=== PATIENT | male | born 1955 | race Two or more races ===

== ENCOUNTER 2017-09-09 17:39 | Inpatient (IN) | payer OTHER ==
[~2017-09-09] VITALS: Ht 167.6 cm; Wt 62.1 kg
[2017-09-09 17:41] VITALS: BP 124/69
--- NOTE | 2017-09-09 18:57 | Emergency Room Report ---
History of Present Illness General Chief Complaint: Fever Present Illness HPI Patient is a 62-year-old male brought in by EMS after increased fever. Patient prior history of right-sided CVA with resulting right-sided hemiplegia. Patient was noted to have fever up to 104 at his facility. The patient reports having increased pain to the right side of his face. He denies any vomiting. He denies any new weakness. He reports having right-sided facial throbbing Allergies: Coded Allergies: No Known Allergies (Unverified , 09/09/17) Patient History Past Medical History: see triage record Reviewed Nursing Documentation: PMH: Agreed; PSxH: Agreed Review of Systems All Other Systems: negative except mentioned in HPI Physical Exam Vital Signs Date Time Temp Pulse Resp B/P (MAP) Pulse Ox O2 Delivery O2 Flow Rate FiO2 09/09/17 17:31 101.8 100 18 128/68 94 Room Air 101.8 Sp02 EP Interpretation: reviewed, normal General Appearance: normal inspection, well appearing, no apparent distress, alert, GCS 15, non-toxic Head: atraumatic ENT: normal ENT inspection, hearing grossly normal, normal voice Neck: normal inspection, full range of motion, supple, no bony tend Respiratory: normal inspection, lungs clear, normal breath sounds, no respiratory distress, no retraction, no wheezing Cardiovascular #1: regular rate, rhythm, no edema Gastrointestinal: normal inspection, normal bowel sounds, non tender, soft, no guarding, no hernia Genitourinary: no CVA tenderness Musculoskeletal: normal inspection, back normal, normal range of motion Neurologic: normal inspection, alert, responsive, speech normal, motor weakness - right upper extremity, right facial droop Psychiatric: normal inspection, judgement/insight normal, mood/affect normal Skin: normal inspection, normal color, no rash Medical Decision Making Diagnostic Impression: Primary Impression: History of CVA (cerebrovascular accident) Additional Impressions: Fever Abnormal LFTs ER Course Patient presented for fever. Differential diagnosis included was not limited to sepsis, urinary tract infection, pneumonia, drug fever, thalamic dysregulation. Because of complexity of patient's case laboratory testing and imaging studies were ordered.The patient noted have prior CVA. The patient given antipyretics and started on IV antibiotics. The patient started on IV fluids. The patient shows no definite source of infection. CT of head read by radiology showed no evidence of acute hemorrhage or CVA. The patient's liver tests were noted to be somewhat abnormal patient will be admitted for further evaluation and treatment. The patient's urine does not appear to be infected. Dr. Calvin Martell was contacted for inpatient management Labs Test 09/09/17 18:40 09/10/17 07:00 White Blood Count 10.0 K/UL (4.8-10.8) Red Blood Count 4.71 M/UL (4.70-6.10) Hemoglobin 12.4 G/DL (14.2-18.0) Hematocrit 37.4 % (42.0-52.0) Mean Corpuscular Volume 79 FL (80-99) Mean Corpuscular Hemoglobin 26.3 PG (27.0-31.0) Mean Corpuscular Hemoglobin Concent 33.1 G/DL (32.0-36.0) Red Cell Distribution Width 14.0 % (11.6-14.8) Platelet Count 236 K/UL (150-450) Mean Platelet Volume 5.6 FL (6.5-10.1) Neutrophils (%) (Auto) 78.7 % (45.0-75.0) Lymphocytes (%) (Auto) 12.0 % (20.0-45.0) Monocytes (%) (Auto) 8.2 % (1.0-10.0) Eosinophils (%) (Auto) 0.4 % (0.0-3.0) Basophils (%) (Auto) 0.7 % (0.0-2.0) Sodium Level 135 MMOL/L (136-145) Potassium Level 4.1 MMOL/L (3.5-5.1) Chloride Level 100 MMOL/L (98-107) Carbon Dioxide Level 26 MMOL/L (21-32) Anion Gap 9 mmol/L (5-15) Blood Urea Nitrogen 9 mg/dL (7-18) Creatinine 1.1 MG/DL (0.55-1.30) Estimat Glomerular Filtration Rate > 60 mL/min (>60) Glucose Level 116 MG/DL (74-106) Lactic Acid Level 2.10 mmol/L (0.66-2.22) Calcium Level 9.0 MG/DL (8.5-10.1) Phosphorus Level 2.6 MG/DL (2.5-4.9) Magnesium Level 1.4 MG/DL (1.8-2.4) Total Bilirubin 0.5 MG/DL (0.2-1.0) Aspartate Amino Transf (AST/SGOT) 167 U/L (15-37) Alanine Aminotransferase (ALT/SGPT) 312 U/L (12-78) Alkaline Phosphatase 166 U/L (46-116) Total Creatine Kinase 192 U/L (26-308) Creatine Kinase MB 0.8 NG/ML (0.0-3.6) Creatine Kinase MB Relative Index 0.4 Troponin I 0.000 ng/mL (0.000-0.056) Total Protein 8.4 G/DL (6.4-8.2) Albumin 3.7 G/DL (3.4-5.0) Globulin 4.7 g/dL Albumin/Globulin Ratio 0.8 (1.0-2.7) Urine Color Pale yellow Urine Appearance Clear Urine pH 8 (4.5-8.0) Urine Specific [place] 1.010 (1.005-1.035) Urine Protein Negative (NEGATIVE) Urine Glucose (UA) Negative (NEGATIVE) Urine Ketones Negative (NEGATIVE) Urine Occult Blood Negative (NEGATIVE) Urine Nitrite Negative (NEGATIVE) Urine Bilirubin Negative (NEGATIVE) Urine Urobilinogen Normal MG/DL (0.0-1.0) Urine Leukocyte Esterase Negative (NEGATIVE) Urine RBC 0 /HPF (0 - 0) Urine WBC 0-2 /HPF (0 - 0) Urine Squamous Epithelial Cells Occasional /LPF Urine Bacteria Occasional /HPF (NONE) Last Vital Signs Date Time Temp Pulse Resp B/P (MAP) Pulse Ox O2 Delivery O2 Flow Rate FiO2 09/09/17 17:41 99.8 106 18 124/69 96 Room Air 99.8 Status: unchanged Disposition: ADMITTED INPATIENT Condition: Serious Referrals: CALVIN MARTELL (PCP) Parth Thompson Sep 09, 2017 18:57
[2017-09-09 19:28] VITALS: BP 140/75
[2017-09-09 19:33] LABS: BASOPHILS % (AUTO) 0.7 % (0.0-2.0); EOSINOPHILS % (AUTO) 0.4 % (0.0-3.0); HEMATOCRIT 37.4 % (42.0-52.0); HEMOGLOBIN 12.4 G/DL (14.2-18.0); MEAN CORPUSCULAR VOLUME 79 FL (80-99); MONOCYTES % (AUTO) 8.2 % (1.0-10.0); NEUTROPHILS % (AUTO) 78.7 % (45.0-75.0); PLATELET COUNT 236 K/UL (150-450); RED BLOOD COUNT 4.71 M/UL (4.70-6.10)
[2017-09-09 19:37] LABS: APPEARANCE,URINE CLEAR; BILIRUBIN, URINE NEGATIVE (NEGATIVE); COLOR,URINE PALE YELLOW; GLUCOSE, URINE (UA) NEGATIVE (NEGATIVE); KETONES,URINE NEGATIVE (NEGATIVE); LEUKOCYTE ESTERASE ,URINE NEGATIVE (NEGATIVE); NITRITE,URINE NEGATIVE (NEGATIVE); PH,URINE 9 (4.5-8.0); PROTEIN,URINE NEGATIVE (NEGATIVE); UROBILINOGEN,URINE NORMAL MG/DL (0.0-1.0)
[2017-09-09 19:39] LABS: ANION GAP 9 mmol/L (5-15); BLOOD UREA NITROGEN 9 mg/dL (7-18); CARBON DIOXIDE 26 MMOL/L (21-32); CHLORIDE 100 MMOL/L (98-107); CREATININE 1.1 MG/DL (0.55-1.30); POTASSIUM 4.1 MMOL/L (3.5-5.1); SODIUM 135 MMOL/L (136-145)
[2017-09-09 19:52] LABS: ALANINE AMINOTRANSFERASE 312 U/L (12-78); ALBUMIN 3.7 G/DL (3.4-5.0); ALBUMIN/GLOBULIN RATIO 0.8 (1.0-2.7); ALKALINE PHOSPHATASE 166 U/L (46-116); ASPARTATE AMINO TRANSFERASE 167 U/L (15-37); BILIRUBIN,TOTAL 0.5 MG/DL (0.2-1.0); CKMB 0.8 NG/ML (0.0-3.6); CREATINE KINASE 192 U/L (26-308); PHOSPHORUS 2.6 MG/DL (2.5-4.9)
[2017-09-09] MEDS ORDERED: CARVEDILOL6.25 MG ORAL (20:21)
[2017-09-09] MEDS ORDERED: PEPCID20 MG ORAL (20:21)
[2017-09-09] MEDS ORDERED: ATORVASTATIN CA40 MG ORAL (20:21)
[2017-09-09] MEDS ORDERED: ADULT WAL-100 MG/5 M ORAL (20:21)
[2017-09-09] MEDS ORDERED: NUTRISOURCE FI1 EACH PO (20:21)
[2017-09-09] MEDS ORDERED: DOCUSATE SODIU100 MG ORAL (20:21)
[2017-09-09] MEDS ORDERED: TRAMADOL HCL50 MG ORAL (20:21)
[2017-09-09] MEDS ORDERED: BACLOFEN10 MG ORAL (20:21)
[2017-09-09] MEDS ORDERED: METFORMIN HCL1000 M1 ORAL (20:21)
[2017-09-09] MEDS ORDERED: ASPIR 8181 MG ORAL (20:21)
[2017-09-09] MEDS ORDERED: FERROUSUL325 M1 PO (20:21)
[2017-09-09] MEDS ORDERED: NEURONTIN100 MG ORAL (20:21)
[2017-09-09] MEDS ORDERED: MAGNESIUM400 M1 PO (20:21)
[2017-09-09] MEDS ORDERED: ACETAMINOPHEN325 M1 ORAL (20:21)
[2017-09-09] MEDS ORDERED: FLONASE ALLERG9.9 ML NS (20:21)
[2017-09-09] MEDS ORDERED: AMLODIPINE BESY10 MG ORAL (20:21)
[2017-09-09] MEDS ORDERED: LISINOPRIL5 MG ORAL (20:21)
[2017-09-09 21:03] VITALS: BP 111/64
[2017-09-09] MEDS ORDERED: Ampicillin/Sulbactam Sod 3 GM in NS 110 ML IVPB ONE (22:45)
[2017-09-09 22:56] VITALS: BP 112/72
[2017-09-09 23:30] VITALS: BP 129/77
[2017-09-10] MEDS ORDERED: Miralax 17gm pkt ORAL PRN (00:15)
[2017-09-10] MEDS ORDERED: Nitroglycerin Subl 0.4mg tab SL PRN ×2 (00:15→20:15)
[2017-09-10] MEDS ORDERED: Albuterol/Ipratropium 3ml neb HHN PRN ×2 (00:15→21:00)
[2017-09-10] MEDS ORDERED: Morphine Sulfate 4mg/ml Inj IVP PRN ×2 (00:45→21:00)
[2017-09-10] MEDS ORDERED: Vancomycin 1.5gm/D5W 250ml 250 ML IVPB SCH (02:00)
[2017-09-10 04:00] VITALS: BP 115/65
[2017-09-10] MEDS: NovoLOG Insulin Flexpen SUBQ SCH ×4 (06:28→21:57)
[2017-09-10 08:00] VITALS: BP 112/74
[2017-09-10] MEDS ORDERED: Cefepime HCl 2 GM in D5W 110 ML IV SCH (09:00)
[2017-09-10] MEDS ORDERED: Lisinopril 2.5mg tab ORAL SCH (09:00)
[2017-09-10] MEDS ORDERED: Carvedilol 6.25mg Tab ORAL SCH (09:00)
[2017-09-10] MEDS ORDERED: Heparin 5000 units/ml inj SUBQ SCH (09:00)
--- NOTE | 2017-09-10 09:39 | Diagnostic Imaging Report ---
Indication: Shortness of breath Technique: One view of the chest Comparison: none Findings: Inspiration is suboptimal. The heart is upper limits of normal in size. No infiltrates, effusions, or congestion Impression: No acute process
[2017-09-10 09:55] LABS: APPEARANCE,URINE CLEAR; BILIRUBIN, URINE NEGATIVE (NEGATIVE); COLOR,URINE PALE YELLOW; GLUCOSE, URINE (UA) NEGATIVE (NEGATIVE); KETONES,URINE NEGATIVE (NEGATIVE); LEUKOCYTE ESTERASE ,URINE NEGATIVE (NEGATIVE); NITRITE,URINE NEGATIVE (NEGATIVE); PH,URINE 8 (4.5-8.0); PROTEIN,URINE NEGATIVE (NEGATIVE); UROBILINOGEN,URINE NORMAL MG/DL (0.0-1.0)
[2017-09-10] MEDS ORDERED: Lisinopril 20mg tab ORAL SCH (10:15)
--- NOTE | 2017-09-10 11:36 | Diagnostic Imaging Report ---
Indications: Head pain Technique: Spiral acquisitions obtained through the brain. Angled axial and coronal 5 x 5 mm slices were reconstructed. Total dose length product 1326.82 mGycm. CTDI vol(s) 70.38 mGy. Dose reduction achieved using automated exposure control Comparison: None. Findings: There is an old lacunar infarct in the left basal ganglia region. Although the infarct does not appear particularly large, there is considerable ex vacuo dilatation of the frontal horn and body of the left lateral ventricle. No acute intracranial hemorrhage or edema. No mass effect or midline shift. Otherwise normal galo-white differentiation. There is minimal ethmoid sinus disease. Intact calvarium. Visualized orbits are unremarkable. Impression: Old left basal ganglia lacunar infarct Negative for acute intracranial bleed or mass effect Minimal sinus disease This agrees with the preliminary interpretation provided overnight by [facility] teleradiology service. The CT scanner at [facility] is accredited by the [employer] and the scans are performed using protocols designed to limit radiation exposure to as low as reasonably achievable to attain images of sufficient resolution adequate for diagnostic evaluation.
[2017-09-10 12:00] VITALS: BP 120/65
--- NOTE | 2017-09-10 12:07 | Consultation ---
History of Present Illness General Date patient seen: Sep 10, 2017 Chief Complaint: Fever Present Illness HPI 62-year-old male with history of right-sided CVA with resulting right-sided hemiplegia brought in by EMS with CC of fever up to 104 at his facility. The patient reports having increased pain to the right side of his face. He denies any vomiting. He denies any new weakness. His CXR was negative, urine was clear as well. He is admitted to work up his fever. He looks comfortable, only c/o generalized weakness. Allergies: Coded Allergies: No Known Allergies (Unverified , 09/09/17) Medication History Scheduled Amlodipine Besylate* (Amlodipine Besylate*), 10 MG ORAL DAILY, (Reported) Aspirin* (Aspir 81*), 81 MG ORAL DAILY, (Reported) Atorvastatin Calcium* (Atorvastatin Calcium*), 40 MG ORAL BEDTIME, (Reported) Baclofen* (Baclofen*), 5 MG ORAL THREE TIMES A DAY, (Reported) Carvedilol* (Carvedilol*), 6.25 MG ORAL EVERY 12 HOURS, (Reported) Docusate Sodium* (Docusate Sodium*), 100 MG ORAL TWICE A DAY, (Reported) Famotidine (Pepcid), 20 MG ORAL BEDTIME, (Reported) Gabapentin* (Neurontin*), 300 MG ORAL THREE TIMES A DAY, (Reported) Guaifenesin* (Adult Wal-Tussin*), 5 ML ORAL Q4H, (Reported) Lisinopril (Lisinopril*), 40 MG ORAL DAILY, (Reported) Magnesium Oxide (Magnesium), 400 MG PO BID, (Reported) Metformin Hcl* (Metformin Hcl*), 1,000 MG ORAL DAILY, (Reported) Scheduled PRN Acetaminophen* (Acetaminophen 325MG Tablet*), 325 MG ORAL Q4H PRN for For Pain, (Reported) Tramadol Hcl* (Ultram*), 50 MG ORAL Q6H PRN for For Pain, (Reported) Miscellaneous Medications Ferrous Sulfate (Ferrousul), 325 MG PO, (Reported) Fluticasone Propionate (Flonase Allergy Relief), 9.9 ML NS, (Reported) Guar Gum (Nutrisource Fiber), 1 EACH PO, (Reported) Patient History Healthcare decision maker Resuscitation status Full Code Advanced Directive on File No Past Medical/Surgical History Past Medical/Surgical History: (1) History of CVA (cerebrovascular accident) (2) Diabetes mellitus (3) Hypertension Review of Systems All Other Systems: negative except mentioned in HPI Physical Exam General Appearance: WD/WN Lines, tubes and drains: peripheral HEENT: normocephalic, atraumatic Neck: non-tender, normal alignment Respiratory/Chest: chest wall non-tender, lungs clear Cardiovascular/Chest: normal peripheral pulses, normal rate Abdomen: normal bowel sounds, non tender Genitourinary/Rectal: normal genital exam, normal rectal exam Extremities: normal range of motion, non-tender Skin Exam: warm/dry Last 24 Hour Vital Signs Date Time Temp Pulse Resp B/P (MAP) Pulse Ox O2 Delivery O2 Flow Rate FiO2 09/10/17 10:27 112/74 09/10/17 09:07 96 112/74 09/10/17 09:07 96 112/74 09/10/17 08:00 97.9 96 18 112/74 95 Room Air 97.9 09/10/17 07:19 83 09/10/17 04:00 99.7 100 20 115/65 96 Room Air 99.7 09/10/17 04:00 100 09/09/17 23:41 82 09/09/17 23:30 100.0 96 18 129/77 96 Room Air 100.0 09/09/17 23:25 98.4 87 19 112/72 96 Room Air 98.4 09/09/17 22:56 87 19 112/72 96 Room Air 09/09/17 21:03 98.4 87 14 111/64 97 Room Air 98.4 09/09/17 20:06 98.4 09/09/17 19:28 99.8 99 15 140/75 98 Room Air 99.8 09/09/17 19:07 99.8 09/09/17 17:41 99.8 106 18 124/69 96 Room Air 99.8 09/09/17 17:31 101.8 100 18 128/68 94 Room Air 101.8 Intake and Output 09/09/17 09/10/17 19:00 07:00 Output Total 225 ml Balance -225 ml Output Urine Total 225 ml # Voids 1 Laboratory Tests Test 09/09/17 18:40 09/09/17 19:00 09/10/17 07:00 White Blood Count 10.0 K/UL (4.8-10.8) Red Blood Count 4.71 M/UL (4.70-6.10) Hemoglobin 12.4 G/DL (14.2-18.0) L Hematocrit 37.4 % (42.0-52.0) L Mean Corpuscular Volume 79 FL (80-99) L Mean Corpuscular Hemoglobin 26.3 PG (27.0-31.0) L Mean Corpuscular Hemoglobin Concent 33.1 G/DL (32.0-36.0) Red Cell Distribution Width 14.0 % (11.6-14.8) Platelet Count 236 K/UL (150-450) Mean Platelet Volume 5.6 FL (6.5-10.1) L Neutrophils (%) (Auto) 78.7 % (45.0-75.0) H Lymphocytes (%) (Auto) 12.0 % (20.0-45.0) L Monocytes (%) (Auto) 8.2 % (1.0-10.0) Eosinophils (%) (Auto) 0.4 % (0.0-3.0) Basophils (%) (Auto) 0.7 % (0.0-2.0) Sodium Level 135 MMOL/L (136-145) L Potassium Level 4.1 MMOL/L (3.5-5.1) Chloride Level 100 MMOL/L (98-107) Carbon Dioxide Level 26 MMOL/L (21-32) Anion Gap 9 mmol/L (5-15) Blood Urea Nitrogen 9 mg/dL (7-18) Creatinine 1.1 MG/DL (0.55-1.30) Estimat Glomerular Filtration Rate > 60 mL/min (>60) Glucose Level 116 MG/DL (74-106) H Lactic Acid Level 2.10 mmol/L (0.66-2.22) Calcium Level 9.0 MG/DL (8.5-10.1) Phosphorus Level 2.6 MG/DL (2.5-4.9) Magnesium Level 1.4 MG/DL (1.8-2.4) L Total Bilirubin 0.5 MG/DL (0.2-1.0) Aspartate Amino Transf (AST/SGOT) 167 U/L (15-37) H Alanine Aminotransferase (ALT/SGPT) 312 U/L (12-78) H Alkaline Phosphatase 166 U/L (46-116) H Total Creatine Kinase 192 U/L (26-308) Creatine Kinase MB 0.8 NG/ML (0.0-3.6) Creatine Kinase MB Relative Index 0.4 Troponin I 0.000 ng/mL (0.000-0.056) Total Protein 8.4 G/DL (6.4-8.2) H Albumin 3.7 G/DL (3.4-5.0) Globulin 4.7 g/dL Albumin/Globulin Ratio 0.8 (1.0-2.7) L Urine Color Pale yellow Pale yellow Urine Appearance Clear Clear Urine pH 9 (4.5-8.0) 8 (4.5-8.0) Urine Specific [place] 1.015 (1.005-1.035) 1.010 (1.005-1.035) Urine Protein Negative (NEGATIVE) Negative (NEGATIVE) Urine Glucose (UA) Negative (NEGATIVE) Negative (NEGATIVE) Urine Ketones Negative (NEGATIVE) Negative (NEGATIVE) Urine Occult Blood Negative (NEGATIVE) Negative (NEGATIVE) Urine Nitrite Negative (NEGATIVE) Negative (NEGATIVE) Urine Bilirubin Negative (NEGATIVE) Negative (NEGATIVE) Urine Urobilinogen Normal MG/DL (0.0-1.0) Normal MG/DL (0.0-1.0) Urine Leukocyte Esterase Negative (NEGATIVE) Negative (NEGATIVE) Urine RBC 0 /HPF (0 - 0) Urine WBC 0-2 /HPF (0 - 0) Urine Squamous Epithelial Cells Occasional /LPF Urine Bacteria Occasional /HPF (NONE) Microbiology Date/Time Source Procedure Growth Status 09/09/17 18:40 Nasal Nares Influenza Types A,B Antigen (DEBORAH) - Final Complete Height (Feet): 5 Height (Inches): 8.00 Weight (Pounds): 137 Medications Current Medications Medications (Trade) Dose Ordered Sig/Leeroy Route PRN Reason Start Time Stop Time Status Last Admin Dose Admin Acetaminophen (Tylenol) 650 mg Q4H PRN ORAL fever 09/10/17 00:15 10/10/17 00:14 Albuterol/ Ipratropium (Albuterol/ Ipratropium) 3 ml EVERY 4 HOURS PRN HHN Shortness of Breath 09/10/17 00:15 09/15/17 00:14 Amlodipine Besylate (Norvasc) 10 mg DAILY ORAL 09/10/17 09:00 10/10/17 08:59 09/10/17 09:07 Carvedilol (Coreg) 6.25 mg EVERY 12 HOURS ORAL 09/10/17 09:00 10/10/17 08:59 09/10/17 09:07 Cefepime HCl 2 gm/ Dextrose 110 ml @ 220 mls/hr EVERY 12 HOURS IV 09/10/17 09:00 09/17/17 08:59 09/10/17 10:26 Dextrose (Dextrose 50%) STAT PRN IV Hypoglycemia 09/10/17 00:15 10/10/17 00:14 Gabapentin (Neurontin) 300 mg THREE TIMES A DAY ORAL 09/10/17 09:00 10/10/17 08:59 09/10/17 09:06 Heparin Sodium (Porcine) (Heparin 5000 units/ml) 5,000 units EVERY 12 HOURS SUBQ 09/10/17 09:00 10/10/17 08:59 09/10/17 09:08 Insulin Aspart (NovoLOG) BEFORE MEALS AND HS SUBQ 09/10/17 06:30 10/10/17 06:29 09/10/17 11:50 Lisinopril (Prinivil) 40 mg DAILY ORAL 09/11/17 09:00 10/11/17 08:59 Morphine Sulfate (Morphine Sulfate) 2 mg Q4H PRN IVP moderate pain scale 4 to 6 09/10/17 00:45 09/17/17 00:44 Nitroglycerin (Ntg) 0.4 mg Q5M PRN SL Prn Chest Pain 09/10/17 00:15 10/10/17 00:14 Ondansetron HCl (Zofran) 4 mg Q6H PRN IVP Nausea & Vomiting 09/10/17 00:15 10/10/17 00:14 Polyethylene Glycol (Miralax) 17 gm DAILYPRN PRN ORAL Constipation 09/10/17 00:15 10/10/17 00:14 Temazepam (Restoril) 15 mg HSPRN PRN ORAL Insomnia 09/10/17 00:15 09/17/17 00:14 Vancomycin HCl (Vanco rx to dose) 1 ea DAILY PRN MISC PER RX PROTOCOL 09/10/17 09:45 5/26/18 09:44 Vancomycin/Sodium Chloride 250 ml @ 166.667 mls/hr Q12HR@0200,1400 IVPB 09/10/17 14:00 09/15/17 13:59 Assessment/Plan Problem List: (1) Fever ICD Codes: R50.9 - Fever, unspecified SNOMED: 286474501 (2) Diabetes mellitus ICD Codes: E11.9 - Type 2 diabetes mellitus without complications SNOMED: 90924461 (3) Hypertension ICD Codes: I10 - Essential (primary) hypertension SNOMED: 09614327 (4) History of CVA (cerebrovascular accident) ICD Codes: Z86.73 - Personal history of transient ischemic attack (TIA), and cerebral infarction without residual deficits SNOMED: 034437132 Assessment/Plan howard cultures, urine, blood, IV abx symptomatic treatment sliding scale diabetic diet echocardiogram Loco Aguilar MD Sep 10, 2017 12:07
--- NOTE | 2017-09-10 13:17 | Consultation ---
History of Present Illness General Date patient seen: Sep 10, 2017 Time patient seen: 13:04 Chief Complaint: Fever Present Illness HPI 62 y/o M with hx of CVA w/ residual R side hemiplegia, SNF resident presents to ED on 09/09 with fever up to 104, increasing R side face pain/throbbing. +sinus congestion Denies vomiting, new weakness, vision changes, neck pain, photo/phono-phobia, abd pain, diarrhea, nausea, rash, cough, sore throat. CXR neg, u/a neg. Allergies: Coded Allergies: No Known Allergies (Unverified , 09/09/17) Medication History Scheduled Amlodipine Besylate* (Amlodipine Besylate*), 10 MG ORAL DAILY, (Reported) Aspirin* (Aspir 81*), 81 MG ORAL DAILY, (Reported) Atorvastatin Calcium* (Atorvastatin Calcium*), 40 MG ORAL BEDTIME, (Reported) Baclofen* (Baclofen*), 5 MG ORAL THREE TIMES A DAY, (Reported) Carvedilol* (Carvedilol*), 6.25 MG ORAL EVERY 12 HOURS, (Reported) Docusate Sodium* (Docusate Sodium*), 100 MG ORAL TWICE A DAY, (Reported) Famotidine (Pepcid), 20 MG ORAL BEDTIME, (Reported) Gabapentin* (Neurontin*), 300 MG ORAL THREE TIMES A DAY, (Reported) Guaifenesin* (Adult Wal-Tussin*), 5 ML ORAL Q4H, (Reported) Lisinopril (Lisinopril*), 40 MG ORAL DAILY, (Reported) Magnesium Oxide (Magnesium), 400 MG PO BID, (Reported) Metformin Hcl* (Metformin Hcl*), 1,000 MG ORAL DAILY, (Reported) Scheduled PRN Acetaminophen* (Acetaminophen 325MG Tablet*), 325 MG ORAL Q4H PRN for For Pain, (Reported) Tramadol Hcl* (Ultram*), 50 MG ORAL Q6H PRN for For Pain, (Reported) Miscellaneous Medications Ferrous Sulfate (Ferrousul), 325 MG PO, (Reported) Fluticasone Propionate (Flonase Allergy Relief), 9.9 ML NS, (Reported) Guar Gum (Nutrisource Fiber), 1 EACH PO, (Reported) Patient History Healthcare decision maker Resuscitation status Full Code Advanced Directive on File No Patient History Narrative PMhx: as above Shx: reviewed Fhx: non contributory Review of Systems All Other Systems: negative except mentioned in HPI Physical Exam Physical Exam Narrative General Appearance: WD/WN Lines, tubes and drains: peripheral HEENT: normocephalic, atraumatic Neck: non-tender, normal alignment Respiratory/Chest: chest wall non-tender, lungs clear Cardiovascular/Chest: normal peripheral pulses, normal rate Abdomen: normal bowel sounds, RUQ TTP Genitourinary/Rectal: normal genital exam, normal rectal exam Extremities: normal range of motion, non-tender Skin Exam: warm/dry Last 24 Hour Vital Signs Date Time Temp Pulse Resp B/P (MAP) Pulse Ox O2 Delivery O2 Flow Rate FiO2 09/10/17 12:00 99.0 87 20 120/65 95 Room Air 99.0 09/10/17 11:40 87 09/10/17 10:27 112/74 09/10/17 09:07 96 112/74 09/10/17 09:07 96 112/74 09/10/17 08:00 97.9 96 18 112/74 95 Room Air 97.9 09/10/17 07:19 83 09/10/17 04:00 99.7 100 20 115/65 96 Room Air 99.7 09/10/17 04:00 100 09/09/17 23:41 82 09/09/17 23:30 100.0 96 18 129/77 96 Room Air 100.0 09/09/17 23:25 98.4 87 19 112/72 96 Room Air 98.4 09/09/17 22:56 87 19 112/72 96 Room Air 09/09/17 21:03 98.4 87 14 111/64 97 Room Air 98.4 09/09/17 20:06 98.4 09/09/17 19:28 99.8 99 15 140/75 98 Room Air 99.8 09/09/17 19:07 99.8 09/09/17 17:41 99.8 106 18 124/69 96 Room Air 99.8 09/09/17 17:31 101.8 100 18 128/68 94 Room Air 101.8 Intake and Output 09/09/17 09/10/17 19:00 07:00 Output Total 225 ml Balance -225 ml Output Urine Total 225 ml # Voids 1 Laboratory Tests Test 09/09/17 18:40 09/09/17 19:00 09/10/17 07:00 White Blood Count 10.0 K/UL (4.8-10.8) Red Blood Count 4.71 M/UL (4.70-6.10) Hemoglobin 12.4 G/DL (14.2-18.0) L Hematocrit 37.4 % (42.0-52.0) L Mean Corpuscular Volume 79 FL (80-99) L Mean Corpuscular Hemoglobin 26.3 PG (27.0-31.0) L Mean Corpuscular Hemoglobin Concent 33.1 G/DL (32.0-36.0) Red Cell Distribution Width 14.0 % (11.6-14.8) Platelet Count 236 K/UL (150-450) Mean Platelet Volume 5.6 FL (6.5-10.1) L Neutrophils (%) (Auto) 78.7 % (45.0-75.0) H Lymphocytes (%) (Auto) 12.0 % (20.0-45.0) L Monocytes (%) (Auto) 8.2 % (1.0-10.0) Eosinophils (%) (Auto) 0.4 % (0.0-3.0) Basophils (%) (Auto) 0.7 % (0.0-2.0) Sodium Level 135 MMOL/L (136-145) L Potassium Level 4.1 MMOL/L (3.5-5.1) Chloride Level 100 MMOL/L (98-107) Carbon Dioxide Level 26 MMOL/L (21-32) Anion Gap 9 mmol/L (5-15) Blood Urea Nitrogen 9 mg/dL (7-18) Creatinine 1.1 MG/DL (0.55-1.30) Estimat Glomerular Filtration Rate > 60 mL/min (>60) Glucose Level 116 MG/DL (74-106) H Lactic Acid Level 2.10 mmol/L (0.66-2.22) Calcium Level 9.0 MG/DL (8.5-10.1) Phosphorus Level 2.6 MG/DL (2.5-4.9) Magnesium Level 1.4 MG/DL (1.8-2.4) L Total Bilirubin 0.5 MG/DL (0.2-1.0) Aspartate Amino Transf (AST/SGOT) 167 U/L (15-37) H Alanine Aminotransferase (ALT/SGPT) 312 U/L (12-78) H Alkaline Phosphatase 166 U/L (46-116) H Total Creatine Kinase 192 U/L (26-308) Creatine Kinase MB 0.8 NG/ML (0.0-3.6) Creatine Kinase MB Relative Index 0.4 Troponin I 0.000 ng/mL (0.000-0.056) Total Protein 8.4 G/DL (6.4-8.2) H Albumin 3.7 G/DL (3.4-5.0) Globulin 4.7 g/dL Albumin/Globulin Ratio 0.8 (1.0-2.7) L Urine Color Pale yellow Pale yellow Urine Appearance Clear Clear Urine pH 9 (4.5-8.0) 8 (4.5-8.0) Urine Specific [place] 1.015 (1.005-1.035) 1.010 (1.005-1.035) Urine Protein Negative (NEGATIVE) Negative (NEGATIVE) Urine Glucose (UA) Negative (NEGATIVE) Negative (NEGATIVE) Urine Ketones Negative (NEGATIVE) Negative (NEGATIVE) Urine Occult Blood Negative (NEGATIVE) Negative (NEGATIVE) Urine Nitrite Negative (NEGATIVE) Negative (NEGATIVE) Urine Bilirubin Negative (NEGATIVE) Negative (NEGATIVE) Urine Urobilinogen Normal MG/DL (0.0-1.0) Normal MG/DL (0.0-1.0) Urine Leukocyte Esterase Negative (NEGATIVE) Negative (NEGATIVE) Urine RBC 0 /HPF (0 - 0) Urine WBC 0-2 /HPF (0 - 0) Urine Squamous Epithelial Cells Occasional /LPF Urine Bacteria Occasional /HPF (NONE) Microbiology Date/Time Source Procedure Growth Status 09/09/17 18:40 Nasal Nares Influenza Types A,B Antigen (DEBORAH) - Final Complete Height (Feet): 5 Height (Inches): 8.00 Weight (Pounds): 137 Medications Current Medications Medications (Trade) Dose Ordered Sig/Leeroy Route PRN Reason Start Time Stop Time Status Last Admin Dose Admin Acetaminophen (Tylenol) 650 mg Q4H PRN ORAL fever 09/10/17 00:15 10/10/17 00:14 Albuterol/ Ipratropium (Albuterol/ Ipratropium) 3 ml EVERY 4 HOURS PRN HHN Shortness of Breath 09/10/17 00:15 09/15/17 00:14 Amlodipine Besylate (Norvasc) 10 mg DAILY ORAL 09/10/17 09:00 10/10/17 08:59 09/10/17 09:07 Carvedilol (Coreg) 6.25 mg EVERY 12 HOURS ORAL 09/10/17 09:00 10/10/17 08:59 09/10/17 09:07 Cefepime HCl 2 gm/ Dextrose 110 ml @ 220 mls/hr EVERY 12 HOURS IV 09/10/17 09:00 09/17/17 08:59 09/10/17 10:26 Dextrose (Dextrose 50%) STAT PRN IV Hypoglycemia 09/10/17 00:15 10/10/17 00:14 Gabapentin (Neurontin) 300 mg THREE TIMES A DAY ORAL 09/10/17 09:00 10/10/17 08:59 09/10/17 09:06 Heparin Sodium (Porcine) (Heparin 5000 units/ml) 5,000 units EVERY 12 HOURS SUBQ 09/10/17 09:00 10/10/17 08:59 09/10/17 09:08 Insulin Aspart (NovoLOG) BEFORE MEALS AND HS SUBQ 09/10/17 06:30 10/10/17 06:29 09/10/17 11:50 Lisinopril (Prinivil) 40 mg DAILY ORAL 09/11/17 09:00 10/11/17 08:59 Morphine Sulfate (Morphine Sulfate) 2 mg Q4H PRN IVP moderate pain scale 4 to 6 09/10/17 00:45 09/17/17 00:44 Nitroglycerin (Ntg) 0.4 mg Q5M PRN SL Prn Chest Pain 09/10/17 00:15 10/10/17 00:14 Ondansetron HCl (Zofran) 4 mg Q6H PRN IVP Nausea & Vomiting 09/10/17 00:15 10/10/17 00:14 Polyethylene Glycol (Miralax) 17 gm DAILYPRN PRN ORAL Constipation 09/10/17 00:15 10/10/17 00:14 Temazepam (Restoril) 15 mg HSPRN PRN ORAL Insomnia 09/10/17 00:15 09/17/17 00:14 Vancomycin HCl (Vanco rx to dose) 1 ea DAILY PRN MISC PER RX PROTOCOL 09/10/17 09:45 10/10/17 09:44 Vancomycin/Sodium Chloride 250 ml @ 166.667 mls/hr Q12HR@0200,1400 IVPB 09/10/17 14:00 09/15/17 13:59 Assessment/Plan Assessment/Plan Abx: Unasyn x1 09/09 IV Vanco 09/10- Cefepime 09/10- Assessment: Sepsis- ?2ry to sinusitis- r.o bacteremia, r/o cholecystitis (did had RUQ TTP) -CXR no acute process -u/a neg -Bcx p -CT head: Old left basal ganglia lacunar infarct. Negative for acute intracranial bleed or mass effect. Minimal sinus disease -influenza sc neg Fever -afebrile Elevated LFTs- r/o hepatobiliary disease CVA w/ residual R side hemiplegia SNF resident Plan: -Continue IV Vancomycin #1 for the next 24hrs pending Bcx -Switch Cefepime #1 to Unasyn for sinusitis and possible biliary disease -Abd US, Hiv ag/ab and VL, hep serologies -f/u cx -Monitor CBC/BMP, temperatures -aspiration precautions Thank you for this consultation. WIll continue to follow along with you. Discussed with Citlaly Orantes M.D. Sep 10, 2017 13:17
[2017-09-10] MEDS ORDERED: Vancomycin 750mg/NS 250ml IVPB SCH (14:00)
[2017-09-10 16:00] VITALS: BP 105/66
[2017-09-10] MEDS ORDERED: Ampicillin/Sulbactam Sod 3 GM in D5W 110 ML IVPB SCH (18:00)
--- NOTE | 2017-09-10 18:01 | GI Initial Consult Note ---
History of Present Illness General Date patient seen: Sep 10, 2017 Time patient seen: 18:01 Reason for Hospitalization: Fever Referring physician: CALVIN MARTELL Reason for Consultation: ABDOMINAL PAIN Present Illness HPI 62-year-old male with history of right-sided CVA with resulting right-sided hemiplegia brought in by EMS with CC of fever up to 104 at his facility. The patient reports having increased pain to the right side of his face. He denies any vomiting. He denies any new weakness. His CXR was negative, urine was clear as well. He is admitted to work up his fever. He looks comfortable, only c/o generalized weakness. GI consulted for abdominal pain / abnormal LFTs. Pt seen, awake A&O4 NAD with no active s/sx of N/V/D. c/o of RUQ abdominal pain. Presents with elevated LFTs and hypomagnesemia. No history of endoscopy /colonoscopy. Past Medical/Surgical History: (1) History of CVA (cerebrovascular accident) (2) Diabetes mellitus (3) Hypertension Home Meds Reported Medications Fluticasone Propionate (Flonase Allergy Relief) 9.9 Ml [place].susp, 9.9 ML NS 09/09/17 Guaifenesin* (ADULT WAL-TUSSIN*) 100 Mg/5 Ml Liquid, 5 ML ORAL Q4H, ML 09/09/17 Tramadol Hcl* (ULTRAM*) 50 Mg Tablet, 50 MG ORAL Q6H PRN for For Pain, #30 TAB 0 Refills 09/09/17 Famotidine (PEPCID) 20 Mg Tablet, 20 MG ORAL BEDTIME, #7 TAB 0 Refills 09/09/17 Guar Gum (NUTRISOURCE FIBER) 1 Each Packet, 1 EACH PO, PACKET 09/09/17 Gabapentin* (NEURONTIN*) 100 Mg Capsule, 300 MG ORAL THREE TIMES A DAY, #15 CAP 0 Refills 09/09/17 Metformin Hcl* (METFORMIN HCL*) 1,000 Mg Tablet, 1000 MG ORAL DAILY, TAB 09/09/17 Magnesium Oxide (MAGNESIUM) 400 Mg Capsule, 400 MG PO BID, CAP 09/09/17 Lisinopril (LISINOPRIL*) 5 Mg Tablet, 40 MG ORAL DAILY, TAB 09/09/17 Ferrous Sulfate (FERROUSUL) 325 Mg Tablet, 325 MG PO, TAB 09/09/17 Docusate Sodium* (DOCUSATE SODIUM*) 100 Mg Capsule, 100 MG ORAL TWICE A DAY, CAP 09/09/17 Carvedilol* (CARVEDILOL*) 6.25 Mg Tablet, 6.25 MG ORAL EVERY 12 HOURS, TAB 09/09/17 Baclofen* (BACLOFEN*) 10 Mg Tablet, 5 MG ORAL THREE TIMES A DAY, TAB 09/09/17 Atorvastatin Calcium* (ATORVASTATIN CALCIUM*) 40 Mg Tablet, 40 MG ORAL BEDTIME, TAB 09/09/17 Aspirin* (ASPIR 81*) 81 Mg Tablet.dr, 81 MG ORAL DAILY, TAB 09/09/17 Amlodipine Besylate* (AMLODIPINE BESYLATE*) 10 Mg Tablet, 10 MG ORAL DAILY, TAB 09/09/17 Acetaminophen* (ACETAMINOPHEN 325MG TABLET*) 325 Mg Tablet, 325 MG ORAL Q4H PRN for For Pain, TAB 09/09/17 Med list reviewed/reconciled: Yes Allergies: Coded Allergies: No Known Allergies (Unverified , 09/09/17) Patient History History Provided By: Patient, Medical Record Social History: Denies: smoking, alcohol use, drug use, other Review of Systems All Other Systems: negative except mentioned in HPI Physical Exam Vital Signs Date Time Temp Pulse Resp B/P (MAP) Pulse Ox O2 Delivery O2 Flow Rate FiO2 09/09/17 17:31 101.8 100 18 128/68 94 Room Air 101.8 Sp02 EP Interpretation: reviewed, normal Labs Laboratory Tests Test 09/09/17 18:40 09/09/17 19:00 09/10/17 07:00 White Blood Count 10.0 K/UL (4.8-10.8) Red Blood Count 4.71 M/UL (4.70-6.10) Hemoglobin 12.4 G/DL (14.2-18.0) L Hematocrit 37.4 % (42.0-52.0) L Mean Corpuscular Volume 79 FL (80-99) L Mean Corpuscular Hemoglobin 26.3 PG (27.0-31.0) L Mean Corpuscular Hemoglobin Concent 33.1 G/DL (32.0-36.0) Red Cell Distribution Width 14.0 % (11.6-14.8) Platelet Count 236 K/UL (150-450) Mean Platelet Volume 5.6 FL (6.5-10.1) L Neutrophils (%) (Auto) 78.7 % (45.0-75.0) H Lymphocytes (%) (Auto) 12.0 % (20.0-45.0) L Monocytes (%) (Auto) 8.2 % (1.0-10.0) Eosinophils (%) (Auto) 0.4 % (0.0-3.0) Basophils (%) (Auto) 0.7 % (0.0-2.0) Sodium Level 135 MMOL/L (136-145) L Potassium Level 4.1 MMOL/L (3.5-5.1) Chloride Level 100 MMOL/L (98-107) Carbon Dioxide Level 26 MMOL/L (21-32) Anion Gap 9 mmol/L (5-15) Blood Urea Nitrogen 9 mg/dL (7-18) Creatinine 1.1 MG/DL (0.55-1.30) Estimat Glomerular Filtration Rate > 60 mL/min (>60) Glucose Level 116 MG/DL (74-106) H Lactic Acid Level 2.10 mmol/L (0.66-2.22) Calcium Level 9.0 MG/DL (8.5-10.1) Phosphorus Level 2.6 MG/DL (2.5-4.9) Magnesium Level 1.4 MG/DL (1.8-2.4) L Total Bilirubin 0.5 MG/DL (0.2-1.0) Aspartate Amino Transf (AST/SGOT) 167 U/L (15-37) H Alanine Aminotransferase (ALT/SGPT) 312 U/L (12-78) H Alkaline Phosphatase 166 U/L (46-116) H Total Creatine Kinase 192 U/L (26-308) Creatine Kinase MB 0.8 NG/ML (0.0-3.6) Creatine Kinase MB Relative Index 0.4 Troponin I 0.000 ng/mL (0.000-0.056) Total Protein 8.4 G/DL (6.4-8.2) H Albumin 3.7 G/DL (3.4-5.0) Globulin 4.7 g/dL Albumin/Globulin Ratio 0.8 (1.0-2.7) L Urine Color Pale yellow Pale yellow Urine Appearance Clear Clear Urine pH 9 (4.5-8.0) 8 (4.5-8.0) Urine Specific [place] 1.015 (1.005-1.035) 1.010 (1.005-1.035) Urine Protein Negative (NEGATIVE) Negative (NEGATIVE) Urine Glucose (UA) Negative (NEGATIVE) Negative (NEGATIVE) Urine Ketones Negative (NEGATIVE) Negative (NEGATIVE) Urine Occult Blood Negative (NEGATIVE) Negative (NEGATIVE) Urine Nitrite Negative (NEGATIVE) Negative (NEGATIVE) Urine Bilirubin Negative (NEGATIVE) Negative (NEGATIVE) Urine Urobilinogen Normal MG/DL (0.0-1.0) Normal MG/DL (0.0-1.0) Urine Leukocyte Esterase Negative (NEGATIVE) Negative (NEGATIVE) Urine RBC 0 /HPF (0 - 0) Urine WBC 0-2 /HPF (0 - 0) Urine Squamous Epithelial Cells Occasional /LPF Urine Bacteria Occasional /HPF (NONE) General Appearance: well appearing, no apparent distress, alert Head: normocephalic EENT: PERRL/EOMI, normal ENT inspection Neck: supple Respiratory: normal breath sounds, no respiratory distress Cardiovascular: normal rate Gastrointestinal: normal inspection, non tender, soft, normal bowel sounds, non -distended Rectal: deferred Genitourinary: deferred Musculoskeletal: normal inspection, back normal Neurologic: normal inspection, alert, oriented x3, responsive Psychiatric: normal inspection, judgement/insight normal, memory normal Skin: normal inspection, normal color, no rash, warm/dry, palpation normal, well hydrated Lymphatic: normal inspection, no adenopathy Current Medications Current Medications Medications (Trade) Dose Ordered Sig/Leeroy Route PRN Reason Start Time Stop Time Status Last Admin Dose Admin Acetaminophen (Tylenol) 650 mg Q4H PRN ORAL fever 09/10/17 00:15 10/10/17 00:14 Albuterol/ Ipratropium (Albuterol/ Ipratropium) 3 ml EVERY 4 HOURS PRN HHN Shortness of Breath 09/10/17 00:15 09/15/17 00:14 Amlodipine Besylate (Norvasc) 10 mg DAILY ORAL 09/10/17 09:00 10/10/17 08:59 09/10/17 09:07 Ampicillin Sodium/ Sulbactam Sodium 3 gm/Dextrose 110 ml @ 220 mls/hr Q6HR IVPB 09/10/17 18:00 09/17/17 17:59 09/10/17 17:42 Carvedilol (Coreg) 6.25 mg EVERY 12 HOURS ORAL 09/10/17 09:00 10/10/17 08:59 09/10/17 09:07 Dextrose (Dextrose 50%) STAT PRN IV Hypoglycemia 09/10/17 00:15 10/10/17 00:14 Gabapentin (Neurontin) 300 mg THREE TIMES A DAY ORAL 09/10/17 09:00 10/10/17 08:59 09/10/17 17:43 Heparin Sodium (Porcine) (Heparin 5000 units/ml) 5,000 units EVERY 12 HOURS SUBQ 09/10/17 09:00 10/10/17 08:59 09/10/17 09:08 Insulin Aspart (NovoLOG) BEFORE MEALS AND HS SUBQ 09/10/17 06:30 10/10/17 06:29 09/10/17 17:21 Lisinopril (Prinivil) 40 mg DAILY ORAL 09/11/17 09:00 10/11/17 08:59 Morphine Sulfate (Morphine Sulfate) 2 mg Q4H PRN IVP moderate pain scale 4 to 6 09/10/17 00:45 09/17/17 00:44 Nitroglycerin (Ntg) 0.4 mg Q5M PRN SL Prn Chest Pain 09/10/17 00:15 10/10/17 00:14 Ondansetron HCl (Zofran) 4 mg Q6H PRN IVP Nausea & Vomiting 09/10/17 00:15 10/10/17 00:14 Polyethylene Glycol (Miralax) 17 gm DAILYPRN PRN ORAL Constipation 09/10/17 00:15 10/10/17 00:14 Temazepam (Restoril) 15 mg HSPRN PRN ORAL Insomnia 09/10/17 00:15 09/17/17 00:14 Vancomycin HCl (Vanco rx to dose) 1 ea DAILY PRN MISC PER RX PROTOCOL 09/10/17 09:45 10/10/17 09:44 Vancomycin/Sodium Chloride 250 ml @ 166.667 mls/hr Q12HR@0200,1400 IVPB 09/10/17 14:00 09/15/17 13:59 09/10/17 14:37 GI: Plan Problems: (1) Abnormal LFTs (2) Abdominal pain (3) Anemia (4) Electrolyte imbalance (5) Diabetes mellitus (6) History of CVA (cerebrovascular accident) Plan fu abdominal U/S anemia work up OB stool r/o GI bleed monitor H&H, prn transfusions bowel regime ppi trend LFTs fu labs, hepatitis panel Discussed with Dr. Trevino. Thank you for this patient referral, we will follow. Maya Beth N.P. Sep 10, 2017 18:01
--- NOTE | 2017-09-10 18:45 | History and Physical Report ---
DATE OF ADMISSION: 09/10/2017 TIME: 1 p.m. CONSULTANTS: 1. Loco Aguilar M.D. 2. Paramjit Watson M.D. 3. Genaro Trevino M.D. CHIEF COMPLAINT: Fever, weakness, and headache. BRIEF HISTORY: This is a 62-year-old male from [facility], presented with above-mentioned diagnosis and admitted to telemetry for further care. He also was found to have elevated LFT. Currently, calm in bed. No complaint. No chest pain. No shortness of breath. No nausea, vomiting, or diarrhea. PAST MEDICAL HISTORY: Includes hypertension. PAST SURGICAL HISTORY: None. MEDICATIONS: Includes lisinopril, vancomycin, amlodipine, carvedilol, gabapentin, cefepime, insulin aspart, morphine, albuterol, Tylenol, Zofran, temazepam, and nitroglycerin. ALLERGIES: Denies. SOCIAL HISTORY: No smoking. No alcohol. No intravenous drug abuse. FAMILY HISTORY: Noncontributory. PHYSICAL EXAMINATION: GENERAL: Calm in bed, oriented x2, and in no acute distress. VITAL SIGNS: Temperature 99, pulse , respirations 20, and blood pressure 120/65. CARDIOVASCULAR: No murmurs. LUNGS: Poor air exchange. ABDOMEN: Bowel sounds positive. Nontender and nondistended. EXTREMITIES: No cyanosis. No edema. NEUROLOGIC: The patient moves all extremities, slightly weak. LABORATORY DATA: Labs at this time show hemoglobin 12.4, otherwise CBC is normal. BMP shows sodium 135 and glucose 116. AST 167, ALT 312, and alkaline phosphatase 166. Troponin 0.00. Urinalysis, negative. ASSESSMENT: 1. Fever. 2. Weakness. 3. Headache. 4. Anemia. 5. Elevated liver function tests. 6. Diabetes. 7. Hypertension. PLAN: 1. Antibiotics per Infectious Disease. 2. Fever control. 3. Pain control . 4. OT, PT, and dietary evaluation. 5. Blood pressure and blood sugar control. 6. Resume home medications. 7. CBC and BMP in the morning. 8. We will continue to follow this patient. Daniel Zimmerman D.O. DR: YESSI JOB#: [id number] CC:
[2017-09-10 20:19] VITALS: BP 112/68
[2017-09-10] MEDS: Carvedilol 6.25mg Tab ORAL SCH (21:02)
[2017-09-10] MEDS: Heparin 5000 units/ml inj SUBQ SCH (21:03)
[2017-09-10] MEDS: Ampicillin/Sulbactam Sod 3 GM in D5W 110 ML IVPB SCH (23:19)
[2017-09-11] MEDS ORDERED: Vancomycin 1 GM in D5W 275 ML IV SCH (00:30)
[2017-09-11 00:39] VITALS: BP 115/63
[2017-09-11] MEDS: Vancomycin 750mg/NS 250ml 250 ML IVPB SCH (01:09)
[2017-09-11 04:02] VITALS: BP 97/56
[2017-09-11] MEDS: Ampicillin/Sulbactam Sod 3 GM in D5W 110 ML IVPB SCH ×3 (05:53→17:06)
[2017-09-11] MEDS: NovoLOG Insulin Flexpen SUBQ SCH ×4 (05:57→21:00)
[2017-09-11 08:00] VITALS: BP 103/59
[2017-09-11] MEDS ORDERED: Lisinopril 20mg tab ORAL SCH (09:00)
[2017-09-11] MEDS: Carvedilol 6.25mg Tab ORAL SCH ×2 (09:00→21:21)
[2017-09-11 09:03] LABS: BASOPHILS % (AUTO) 0.5 % (0.0-2.0); EOSINOPHILS % (AUTO) 2.9 % (0.0-3.0); HEMATOCRIT 35.6 % (42.0-52.0); HEMOGLOBIN 12.1 G/DL (14.2-18.0); LYMPHOCYTES % (AUTO) 25.5 % (20.0-45.0); MEAN CORPUSCULAR VOLUME 80 FL (80-99); MONOCYTES % (AUTO) 10.4 % (1.0-10.0); NEUTROPHILS % (AUTO) 60.7 % (45.0-75.0); PLATELET COUNT 227 K/UL (150-450); RED BLOOD COUNT 4.46 M/UL (4.70-6.10); RED CELL DISTRIBUTION WIDTH 13.8 % (11.6-14.8); WHITE BLOOD COUNT 6.8 K/UL (4.8-10.8)
[2017-09-11 09:26] LABS: ALANINE AMINOTRANSFERASE 156 U/L (12-78); ALBUMIN 3.2 G/DL (3.4-5.0); ALBUMIN/GLOBULIN RATIO 0.6 (1.0-2.7); ALKALINE PHOSPHATASE 113 U/L (46-116); ANION GAP 11 mmol/L (5-15); ASPARTATE AMINO TRANSFERASE 42 U/L (15-37); BILIRUBIN,TOTAL 0.4 MG/DL (0.2-1.0); BLOOD UREA NITROGEN 11 mg/dL (7-18); CALCIUM 8.6 MG/DL (8.5-10.1); CARBON DIOXIDE 26 MMOL/L (21-32); CHLORIDE 101 MMOL/L (98-107); CREATININE 1.1 MG/DL (0.55-1.30); FERRITIN 52 NG/ML (8-388); SODIUM 137 MMOL/L (136-145)
[2017-09-11 09:47] LABS: % IRON SATURATION 5 % (15-50); IRON 17 ug/dL (50-175); TOTAL IRON BINDING CAPACITY 313 ug/dL (250-450)
[2017-09-11] MEDS: Lisinopril 20mg tab ORAL SCH (09:47)
[2017-09-11] MEDS: Heparin 5000 units/ml inj SUBQ SCH ×2 (09:49→21:28)
[2017-09-11] MEDS ORDERED: Tubing IV Secondary IV ONE (11:16)
[2017-09-11] MEDS ORDERED: NS 275ml ONE (11:16)
[2017-09-11 12:00] VITALS: BP 94/65
--- NOTE | 2017-09-11 12:24 | Pulmonology Progress Note ---
Assessment/Plan Problems: (1) Fever (2) Diabetes mellitus (3) Hypertension (4) History of CVA (cerebrovascular accident) Assessment/Plan afebrile now all cultures negative continue empiric abx treatment eating well pt/ot dvt prophylaxis. Subjective ROS Limited/Unobtainable: No Constitutional: Reports: no symptoms HEENT: Repors: no symptoms Respiratory: Reports: no symptoms Allergies: Coded Allergies: No Known Allergies (Unverified , 09/09/17) Objective Last 24 Hour Vital Signs Date Time Temp Pulse Resp B/P (MAP) Pulse Ox O2 Delivery O2 Flow Rate FiO2 09/11/17 09:48 74 103/59 09/11/17 09:47 103/59 09/11/17 09:00 74 103/59 09/11/17 08:10 93 18 Room Air 21 09/11/17 08:00 97.9 74 16 103/59 97 97.9 09/11/17 04:02 98.8 83 18 97/56 94 98.8 09/11/17 00:39 98.8 94 18 115/63 94 98.8 09/11/17 00:00 94 Room Air 09/10/17 21:18 98 20 Room Air 21 09/10/17 21:02 91 112/68 09/10/17 20:19 99.0 91 17 112/68 93 99.0 09/10/17 20:00 95 Room Air 09/10/17 16:00 98.6 86 20 105/66 95 Room Air 98.6 Intake and Output 09/10/17 09/11/17 19:00 07:00 Intake Total 520 ml Output Total 500 ml Balance 20 ml Intake Oral 520 ml Output Urine Total 500 ml # Voids 4 General Appearance: cachetic HEENT: normocephalic, atraumatic Respiratory/Chest: chest wall non-tender, lungs clear Cardiovascular: normal peripheral pulses, normal rate Abdomen: normal bowel sounds, soft, non tender Genitourinary: normal external genitalia Extremities: no clubbing Skin: no lesions Neurologic/Psychiatric: juice mixer II-XII grossly normal Microbiology Date/Time Source Procedure Growth Status 09/09/17 18:45 Blood Blood Culture - Preliminary NO GROWTH AFTER 24 HOURS Resulted 09/09/17 18:40 Blood Blood Culture - Preliminary NO GROWTH AFTER 24 HOURS Resulted 09/09/17 18:40 Nasal Nares Influenza Types A,B Antigen (DEBORAH) - Final Complete 09/10/17 07:00 Urine,Clean Catch Urine Culture - Preliminary NO GROWTH AFTER 24 HOURS Resulted Laboratory Tests 09/11/17 07:15: White Blood Count 6.8, Red Blood Count 4.46L, Hemoglobin 12.1L, Hematocrit 35.6L , Mean Corpuscular Volume 80, Mean Corpuscular Hemoglobin 27.1, Mean Corpuscular Hemoglobin Concent 34.0, Red Cell Distribution Width 13.8, Platelet Count 227, Mean Platelet Volume 6.1L, Neutrophils (%) (Auto) 60.7, Lymphocytes ( %) (Auto) 25.5, Monocytes (%) (Auto) 10.4H, Eosinophils (%) (Auto) 2.9, Basophils (%) (Auto) 0.5, Reticulocyte Count 0.6, Prothrombin Time 10.0, Prothromb Time International Ratio 1.0, Activated Partial Thromboplast Time 31, Sodium Level 137, Potassium Level 4.0, Chloride Level 101, Carbon Dioxide Level 26, Anion Gap 11, Blood Urea Nitrogen 11, Creatinine 1.1, Estimat Glomerular Filtration Rate > 60, Glucose Level 116H, Calcium Level 8.6, Iron Level 17L, Total Iron Binding Capacity 313, Percent Iron Saturation 5L, Unsaturated Iron Binding 296, Ferritin 52, Total Bilirubin 0.4, Aspartate Amino Transf (AST/SGOT ) 42H, Alanine Aminotransferase (ALT/SGPT) 156H, Alkaline Phosphatase 113, Total Protein 8.2, Albumin 3.2L, Globulin 5.0, Albumin/Globulin Ratio 0.6L, Vitamin B12 Level > 2000H, Folate 17.7, Thyroid Stimulating Hormone (TSH) 2.108 , Free Thyroxine 1.10, Hepatitis A IgM Antibody [Pending], Hepatitis B Surface Antigen [Pending], Hepatitis B Core IgM Antibody [Pending], Hepatitis C Antibody [Pending], HIV-1 RNA (PCR) log10 Value [Pending], HIV-1 RNA Ultraquantitative (PCR) [Pending], HIV (1&2) Antibody Rapid Negative Current Medications Medications (Trade) Dose Ordered Sig/Leeroy Route PRN Reason Start Time Stop Time Status Last Admin Dose Admin Acetaminophen (Tylenol) 650 mg Q4H PRN ORAL T>100.5 09/10/17 20:15 10/10/17 00:14 Albuterol/ Ipratropium (Albuterol/ Ipratropium) 3 ml Q4H PRN HHN Shortness of Breath 09/10/17 21:00 09/15/17 20:59 Amlodipine Besylate (Norvasc) 10 mg DAILY ORAL 09/11/17 09:00 10/10/17 08:59 09/11/17 09:48 Ampicillin Sodium/ Sulbactam Sodium 3 gm/Dextrose 110 ml @ 220 mls/hr Q6HR IVPB 09/11/17 00:00 09/17/17 17:59 09/11/17 05:53 Carvedilol (Coreg) 6.25 mg EVERY 12 HOURS ORAL 09/10/17 21:00 10/10/17 08:59 09/10/17 21:02 Dextrose (Dextrose 50%) 25 ml PRN IV Hypoglycemia 09/10/17 20:30 10/10/17 20:29 Dextrose (Dextrose 50%) 50 ml PRN IV hypoglycemia 09/10/17 20:30 10/10/17 20:29 Gabapentin (Neurontin) 300 mg THREE TIMES A DAY ORAL 09/11/17 09:00 10/10/17 08:59 09/11/17 09:48 Heparin Sodium (Porcine) (Heparin 5000 units/ml) 5,000 units EVERY 12 HOURS SUBQ 09/10/17 21:00 10/10/17 08:59 09/11/17 09:49 Insulin Aspart (NovoLOG) BEFORE MEALS AND HS SUBQ 09/10/17 21:30 10/10/17 21:29 09/11/17 05:57 Lisinopril (Prinivil) 40 mg DAILY ORAL 09/11/17 09:00 10/11/17 08:59 09/11/17 09:47 Morphine Sulfate (Morphine Sulfate) 2 mg Q4H PRN IVP Moderate Pain (Pain Scale 4-6) 09/10/17 21:00 09/17/17 20:59 Nitroglycerin (Ntg) 0.4 mg Q5M PRN SL Prn Chest Pain 09/10/17 20:15 10/10/17 00:14 Ondansetron HCl (Zofran) 4 mg Q6H PRN IVP Nausea & Vomiting 09/10/17 21:00 10/10/17 20:59 Polyethylene Glycol (Miralax) 17 gm DAILYPRN PRN ORAL Constipation 09/11/17 21:00 10/10/17 20:59 Temazepam (Restoril) 15 mg HSPRN PRN ORAL Insomnia 09/10/17 21:00 09/17/17 20:59 Vancomycin HCl (Vanco rx to dose) 1 ea DAILY PRN MISC PER RX PROTOCOL 09/10/17 21:00 10/10/17 20:59 Vancomycin/Sodium Chloride 250 ml @ 166.667 mls/hr Q12HR@0200,1400 IVPB 09/11/17 02:00 09/15/17 13:59 09/11/17 01:09 Loco Aguilar MD Sep 11, 2017 12:24
--- NOTE | 2017-09-11 12:49 | General Progress Note ---
Assessment/Plan Problem List: (1) Hypertension ICD Codes: I10 - Essential (primary) hypertension SNOMED: 21746731 (2) Diabetes mellitus ICD Codes: E11.9 - Type 2 diabetes mellitus without complications SNOMED: 83911461 (3) Fever ICD Codes: R50.9 - Fever, unspecified SNOMED: 748529409 (4) Anemia ICD Codes: D64.9 - Anemia, unspecified SNOMED: 477315350 (5) Abnormal LFTs ICD Codes: R94.5 - Abnormal results of liver function studies SNOMED: 019398364 Status: stable, progressing, tolerating diet Assessment/Plan ot pt diet abx per id cbc bmp am Subjective Constitutional: Reports: weakness Allergies: Coded Allergies: No Known Allergies (Unverified , 09/09/17) All Systems: reviewed and negative except above Subjective eating calm Objective Last 24 Hour Vital Signs Date Time Temp Pulse Resp B/P (MAP) Pulse Ox O2 Delivery O2 Flow Rate FiO2 09/11/17 12:00 98.6 97 19 94/65 100 98.6 09/11/17 09:48 74 103/59 09/11/17 09:47 103/59 09/11/17 09:00 74 103/59 09/11/17 08:10 93 18 Room Air 21 09/11/17 08:00 97.9 74 16 103/59 97 97.9 09/11/17 04:02 98.8 83 18 97/56 94 98.8 09/11/17 00:39 98.8 94 18 115/63 94 98.8 09/11/17 00:00 94 Room Air 09/10/17 21:18 98 20 Room Air 21 09/10/17 21:02 91 112/68 09/10/17 20:19 99.0 91 17 112/68 93 99.0 09/10/17 20:00 95 Room Air 09/10/17 16:00 98.6 86 20 105/66 95 Room Air 98.6 Intake and Output 09/10/17 09/11/17 19:00 07:00 Intake Total 520 ml Output Total 500 ml Balance 20 ml Intake Oral 520 ml Output Urine Total 500 ml # Voids 4 Laboratory Tests 09/11/17 07:15: White Blood Count 6.8, Red Blood Count 4.46L, Hemoglobin 12.1L, Hematocrit 35.6L , Mean Corpuscular Volume 80, Mean Corpuscular Hemoglobin 27.1, Mean Corpuscular Hemoglobin Concent 34.0, Red Cell Distribution Width 13.8, Platelet Count 227, Mean Platelet Volume 6.1L, Neutrophils (%) (Auto) 60.7, Lymphocytes ( %) (Auto) 25.5, Monocytes (%) (Auto) 10.4H, Eosinophils (%) (Auto) 2.9, Basophils (%) (Auto) 0.5, Reticulocyte Count 0.6, Prothrombin Time 10.0, Prothromb Time International Ratio 1.0, Activated Partial Thromboplast Time 31, Sodium Level 137, Potassium Level 4.0, Chloride Level 101, Carbon Dioxide Level 26, Anion Gap 11, Blood Urea Nitrogen 11, Creatinine 1.1, Estimat Glomerular Filtration Rate > 60, Glucose Level 116H, Calcium Level 8.6, Iron Level 17L, Total Iron Binding Capacity 313, Percent Iron Saturation 5L, Unsaturated Iron Binding 296, Ferritin 52, Total Bilirubin 0.4, Aspartate Amino Transf (AST/SGOT ) 42H, Alanine Aminotransferase (ALT/SGPT) 156H, Alkaline Phosphatase 113, Total Protein 8.2, Albumin 3.2L, Globulin 5.0, Albumin/Globulin Ratio 0.6L, Vitamin B12 Level > 2000H, Folate 17.7, Thyroid Stimulating Hormone (TSH) 2.108 , Free Thyroxine 1.10, Hepatitis A IgM Antibody [Pending], Hepatitis B Surface Antigen [Pending], Hepatitis B Core IgM Antibody [Pending], Hepatitis C Antibody [Pending], HIV-1 RNA (PCR) log10 Value [Pending], HIV-1 RNA Ultraquantitative (PCR) [Pending], HIV (1&2) Antibody Rapid Negative Height (Feet): 5 Height (Inches): 8.00 Weight (Pounds): 137 General Appearance: alert EENT: normal ENT inspection Neck: normal alignment Cardiovascular: normal peripheral pulses, normal rate, regular rhythm Respiratory/Chest: chest wall non-tender, lungs clear, normal breath sounds Abdomen: normal bowel sounds, non tender, soft Extremities: normal inspection Edema: no edema noted Arm (L), no edema noted Arm (R), no edema noted Leg (L), no edema noted Leg (R), no edema noted Pedal (L), no edema noted Pedal (R), no edema noted Generalized Neurologic: responsive, motor weakness Skin: normal pigmentation, warm/dry CALVIN MARTELL Sep 11, 2017 12:49
--- NOTE | 2017-09-11 13:15 | GI Progress Note ---
Assessment/Plan Problems: (1) Abnormal LFTs ICD Codes: R94.5 - Abnormal results of liver function studies SNOMED: 479516140 (2) Abdominal pain ICD Codes: R10.9 - Unspecified abdominal pain SNOMED: 58080752 (3) Anemia ICD Codes: D64.9 - Anemia, unspecified SNOMED: 576671797 (4) History of CVA (cerebrovascular accident) ICD Codes: Z86.73 - Personal history of transient ischemic attack (TIA), and cerebral infarction without residual deficits SNOMED: 133044553 (5) Diabetes mellitus ICD Codes: E11.9 - Type 2 diabetes mellitus without complications SNOMED: 71833738 (6) Electrolyte imbalance ICD Codes: E87.8 - Other disorders of electrolyte and fluid balance, not elsewhere classified SNOMED: 823611076 (7) Hypertension ICD Codes: I10 - Essential (primary) hypertension SNOMED: 98934409 Status: stable Status Narrative Discussed with Dr. Trevino. Assessment/Plan u abdominal U/S anemia work up OB stool r/o GI bleed monitor H&H, prn transfusions bowel regime ppi trend LFTs fu labs, hepatitis panel Subjective Gastrointestinal/Abdominal: Reports: no symptoms Objective Last 24 Hour Vital Signs Date Time Temp Pulse Resp B/P (MAP) Pulse Ox O2 Delivery O2 Flow Rate FiO2 09/11/17 12:00 98.6 97 19 94/65 100 98.6 09/11/17 09:48 74 103/59 09/11/17 09:47 103/59 09/11/17 09:00 74 103/59 09/11/17 08:10 93 18 Room Air 21 09/11/17 08:00 97.9 74 16 103/59 97 97.9 09/11/17 04:02 98.8 83 18 97/56 94 98.8 09/11/17 00:39 98.8 94 18 115/63 94 98.8 09/11/17 00:00 94 Room Air 09/10/17 21:18 98 20 Room Air 21 09/10/17 21:02 91 112/68 09/10/17 20:19 99.0 91 17 112/68 93 99.0 09/10/17 20:00 95 Room Air 09/10/17 16:00 98.6 86 20 105/66 95 Room Air 98.6 Intake and Output 09/10/17 09/11/17 19:00 07:00 Intake Total 520 ml Output Total 500 ml Balance 20 ml Intake Oral 520 ml Output Urine Total 500 ml # Voids 4 Laboratory Tests Test 09/11/17 07:15 White Blood Count 6.8 K/UL (4.8-10.8) Red Blood Count 4.46 M/UL (4.70-6.10) L Hemoglobin 12.1 G/DL (14.2-18.0) L Hematocrit 35.6 % (42.0-52.0) L Mean Corpuscular Volume 80 FL (80-99) Mean Corpuscular Hemoglobin 27.1 PG (27.0-31.0) Mean Corpuscular Hemoglobin Concent 34.0 G/DL (32.0-36.0) Red Cell Distribution Width 13.8 % (11.6-14.8) Platelet Count 227 K/UL (150-450) Mean Platelet Volume 6.1 FL (6.5-10.1) L Neutrophils (%) (Auto) 60.7 % (45.0-75.0) Lymphocytes (%) (Auto) 25.5 % (20.0-45.0) Monocytes (%) (Auto) 10.4 % (1.0-10.0) H Eosinophils (%) (Auto) 2.9 % (0.0-3.0) Basophils (%) (Auto) 0.5 % (0.0-2.0) Reticulocyte Count 0.6 % (0.0-2.0) Prothrombin Time 10.0 SEC (9.30-11.50) Prothromb Time International Ratio 1.0 (0.9-1.1) Activated Partial Thromboplast Time 31 SEC (23-33) Sodium Level 137 MMOL/L (136-145) Potassium Level 4.0 MMOL/L (3.5-5.1) Chloride Level 101 MMOL/L (98-107) Carbon Dioxide Level 26 MMOL/L (21-32) Anion Gap 11 mmol/L (5-15) Blood Urea Nitrogen 11 mg/dL (7-18) Creatinine 1.1 MG/DL (0.55-1.30) Estimat Glomerular Filtration Rate > 60 mL/min (>60) Glucose Level 116 MG/DL (74-106) H Calcium Level 8.6 MG/DL (8.5-10.1) Iron Level 17 ug/dL (50-175) L Total Iron Binding Capacity 313 ug/dL (250-450) Percent Iron Saturation 5 % (15-50) L Unsaturated Iron Binding 296 ug/dL (112-346) Ferritin 52 NG/ML (8-388) Total Bilirubin 0.4 MG/DL (0.2-1.0) Aspartate Amino Transf (AST/SGOT) 42 U/L (15-37) H Alanine Aminotransferase (ALT/SGPT) 156 U/L (12-78) H Alkaline Phosphatase 113 U/L (46-116) Total Protein 8.2 G/DL (6.4-8.2) Albumin 3.2 G/DL (3.4-5.0) L Globulin 5.0 g/dL Albumin/Globulin Ratio 0.6 (1.0-2.7) L Vitamin B12 Level > 2000 PG/ML (193-986) H Folate 17.7 NG/ML (8.6-58.9) Thyroid Stimulating Hormone (TSH) 2.108 uiU/mL (0.358-3.740) Free Thyroxine 1.10 NG/DL (0.76-1.46) Hepatitis A IgM Antibody Pending Hepatitis B Surface Antigen Pending Hepatitis B Core IgM Antibody Pending Hepatitis C Antibody Pending HIV-1 RNA (PCR) log10 Value Pending HIV-1 RNA Ultraquantitative (PCR) Pending HIV (1&2) Antibody Rapid Negative (NEGATIVE) Height (Feet): 5 Height (Inches): 8.00 Weight (Pounds): 137 General Appearance: WD/WN, no apparent distress, alert Cardiovascular: normal rate Respiratory/Chest: normal breath sounds, no respiratory distress Abdominal Exam: normal bowel sounds, non tender, soft Extremities: non-tender, other - R sided weakness Maya Beth N.P. Sep 11, 2017 13:15
[2017-09-11] MEDS: Vancomycin 750mg/NS 250ml IVPB SCH ×2 (15:00→21:22)
--- NOTE | 2017-09-11 15:07 | Diagnostic Imaging Report ---
Indication: Abdominal pain, abnormal liver function tests Technique: Sears-scale and duplex images of the upper abdomen were obtained Comparison: none Findings: Gallbladder is unremarkable, without stones, wall thickening, nor pericholecystic fluid. Sonographic Healy's sign is negative. Common bile duct measures 3 mm in diameter. No intrahepatic biliary ductal dilatation. Liver demonstrates diffusely increased echogenicity, consistent with diffuse hepatocellular disease, most likely fatty change. 2 anechoic lesions with through transmission are seen within the left hepatic lobe one of these measures 11 mm diameter, the other 16 mm diameter. However, technologist reports that these demonstrated venous Doppler signal despite being anechoic. Portal vein and hepatic veins are patent. Pancreas is incompletely visualized due to overlying bowel gas, visualized portions are unremarkable. Spleen is unremarkable. Left kidney measures 11.2 cm in length. Right kidney measures by 11.6 cm length. Both kidneys demonstrate normal echogenicity. There is no hydronephrosis. No focal abnormality . Non-aneurysmal abdominal aorta . Impression: Negative for gallstones or dilated ducts Liver demonstrates diffusely increased echogenicity, consistent with diffuse hepatocellular disease, most likely fatty change. 2 left lobe liver lesions. While cystic-appearing grayscale imaging, technologist reports presence of Doppler flow within them. Further evaluation with multiphasic contrast CT is therefore recommended Note suboptimal visualization of the pancreas
[2017-09-11 16:00] VITALS: BP 118/67
--- NOTE | 2017-09-11 18:10 | Infectious Diseases Prog Note ---
Assessment/Plan Assessment/Plan Assessment: Sepsis, improving- ?2ry to sinusitis- r.o bacteremia, ?liver pathology (r/o malingnacy) -CXR no acute process -u/a neg -Bcx NTD -CT head: Old left basal ganglia lacunar infarct. Negative for acute intracranial bleed or mass effect. Minimal sinus disease -influenza sc neg -Abd US: Negative for gallstones or dilated ducts. Liver demonstrates diffusely increased echogenicity, consistent with diffuse hepatocellular disease , most likely fatty change. 2 left lobe liver lesions. While cystic-appearing grayscale imaging, technologist reports presence of Doppler flow within them. Further evaluation with multiphasic contrast CT is therefore recommended. Note suboptimal visualization of the pancreas Fever; improvnig -no leukocytosis Elevated LFTs, improving- r/o acute viral hep- r/o other liver pathology -hep panel p -HIV sc neg CVA w/ residual R side hemiplegia SNF resident Plan: -D/c IV Vancomycin #2 -Continue Unasyn #2/10 for sinusitis and pending CT abd/p -09/10 SP Cefepime #1 -09/09 SP Unasyn x1 -CT abd/p w/ to further eval liver lesions. -f/u Hiv VL, hep serologies -f/u cx -Monitor CBC/BMP, temperatures -aspiration precautions Thank you for this consultation. WIll continue to follow along with you. Discussed with RN. Subjective Allergies: Coded Allergies: No Known Allergies (Unverified , 09/09/17) Subjective afebrile >36hrs no leukocytosis Bcx NTD Objective Vital Signs Last 24 Hour Vital Signs Date Time Temp Pulse Resp B/P (MAP) Pulse Ox O2 Delivery O2 Flow Rate FiO2 09/11/17 16:00 98.1 72 16 118/67 95 98.1 09/11/17 12:00 98.6 97 19 94/65 100 98.6 09/11/17 09:48 74 103/59 09/11/17 09:47 103/59 09/11/17 09:00 74 103/59 09/11/17 08:10 93 18 Room Air 21 09/11/17 08:00 97.9 74 16 103/59 97 97.9 09/11/17 04:02 98.8 83 18 97/56 94 98.8 09/11/17 00:39 98.8 94 18 115/63 94 98.8 09/11/17 00:00 94 Room Air 09/10/17 21:18 98 20 Room Air 21 09/10/17 21:02 91 112/68 09/10/17 20:19 99.0 91 17 112/68 93 99.0 09/10/17 20:00 95 Room Air Height (Feet): 5 Height (Inches): 8.00 Weight (Pounds): 137 Objective General Appearance: WD/WN Lines, tubes and drains: peripheral HEENT: normocephalic, atraumatic Neck: non-tender, normal alignment Respiratory/Chest: chest wall non-tender, lungs clear Cardiovascular/Chest: normal peripheral pulses, normal rate Abdomen: normal bowel sounds, RUQ TTP Genitourinary/Rectal: normal genital exam, normal rectal exam Extremities: normal range of motion, non-tender Skin Exam: warm/dry Microbiology Date/Time Source Procedure Growth Status 09/09/17 18:45 Blood Blood Culture - Preliminary NO GROWTH AFTER 24 HOURS Resulted 09/09/17 18:40 Blood Blood Culture - Preliminary NO GROWTH AFTER 24 HOURS Resulted 09/09/17 18:40 Nasal Nares Influenza Types A,B Antigen (DEBORAH) - Final Complete 09/10/17 07:00 Urine,Clean Catch Urine Culture - Preliminary NO GROWTH AFTER 24 HOURS Resulted Laboratory Tests Test 09/11/17 07:15 09/11/17 13:15 White Blood Count 6.8 K/UL (4.8-10.8) Red Blood Count 4.46 M/UL (4.70-6.10) L Hemoglobin 12.1 G/DL (14.2-18.0) L Hematocrit 35.6 % (42.0-52.0) L Mean Corpuscular Volume 80 FL (80-99) Mean Corpuscular Hemoglobin 27.1 PG (27.0-31.0) Mean Corpuscular Hemoglobin Concent 34.0 G/DL (32.0-36.0) Red Cell Distribution Width 13.8 % (11.6-14.8) Platelet Count 227 K/UL (150-450) Mean Platelet Volume 6.1 FL (6.5-10.1) L Neutrophils (%) (Auto) 60.7 % (45.0-75.0) Lymphocytes (%) (Auto) 25.5 % (20.0-45.0) Monocytes (%) (Auto) 10.4 % (1.0-10.0) H Eosinophils (%) (Auto) 2.9 % (0.0-3.0) Basophils (%) (Auto) 0.5 % (0.0-2.0) Reticulocyte Count 0.6 % (0.0-2.0) Prothrombin Time 10.0 SEC (9.30-11.50) Prothromb Time International Ratio 1.0 (0.9-1.1) Activated Partial Thromboplast Time 31 SEC (23-33) Sodium Level 137 MMOL/L (136-145) Potassium Level 4.0 MMOL/L (3.5-5.1) Chloride Level 101 MMOL/L (98-107) Carbon Dioxide Level 26 MMOL/L (21-32) Anion Gap 11 mmol/L (5-15) Blood Urea Nitrogen 11 mg/dL (7-18) Creatinine 1.1 MG/DL (0.55-1.30) Estimat Glomerular Filtration Rate > 60 mL/min (>60) Glucose Level 116 MG/DL (74-106) H Calcium Level 8.6 MG/DL (8.5-10.1) Iron Level 17 ug/dL (50-175) L Total Iron Binding Capacity 313 ug/dL (250-450) Percent Iron Saturation 5 % (15-50) L Unsaturated Iron Binding 296 ug/dL (112-346) Ferritin 52 NG/ML (8-388) Total Bilirubin 0.4 MG/DL (0.2-1.0) Aspartate Amino Transf (AST/SGOT) 42 U/L (15-37) H Alanine Aminotransferase (ALT/SGPT) 156 U/L (12-78) H Alkaline Phosphatase 113 U/L (46-116) Total Protein 8.2 G/DL (6.4-8.2) Albumin 3.2 G/DL (3.4-5.0) L Globulin 5.0 g/dL Albumin/Globulin Ratio 0.6 (1.0-2.7) L Vitamin B12 Level > 2000 PG/ML (193-986) H Folate 17.7 NG/ML (8.6-58.9) Thyroid Stimulating Hormone (TSH) 2.108 uiU/mL (0.358-3.740) Free Thyroxine 1.10 NG/DL (0.76-1.46) Hepatitis A IgM Antibody Pending Hepatitis B Surface Antigen Pending Hepatitis B Core IgM Antibody Pending Hepatitis C Antibody Pending HIV-1 RNA (PCR) log10 Value Pending HIV-1 RNA Ultraquantitative (PCR) Pending HIV (1&2) Antibody Rapid Negative (NEGATIVE) Vancomycin Level Trough 9.9 ug/mL (5.0-12.0) Current Medications Medications (Trade) Dose Ordered Sig/Leeroy Route PRN Reason Start Time Stop Time Status Last Admin Dose Admin Acetaminophen (Tylenol) 650 mg Q4H PRN ORAL T>100.5 09/10/17 20:15 10/10/17 00:14 Albuterol/ Ipratropium (Albuterol/ Ipratropium) 3 ml Q4H PRN HHN Shortness of Breath 09/10/17 21:00 09/15/17 20:59 Amlodipine Besylate (Norvasc) 10 mg DAILY ORAL 09/11/17 09:00 10/10/17 08:59 09/11/17 09:48 Ampicillin Sodium/ Sulbactam Sodium 3 gm/Dextrose 110 ml @ 220 mls/hr Q6HR IVPB 09/11/17 00:00 09/17/17 17:59 09/11/17 17:06 Carvedilol (Coreg) 6.25 mg EVERY 12 HOURS ORAL 09/10/17 21:00 10/10/17 08:59 09/10/17 21:02 Dextrose (Dextrose 50%) 25 ml PRN IV Hypoglycemia 09/10/17 20:30 10/10/17 20:29 Dextrose (Dextrose 50%) 50 ml PRN IV hypoglycemia 09/10/17 20:30 10/10/17 20:29 Gabapentin (Neurontin) 300 mg THREE TIMES A DAY ORAL 09/11/17 09:00 10/10/17 08:59 09/11/17 17:06 Heparin Sodium (Porcine) (Heparin 5000 units/ml) 5,000 units EVERY 12 HOURS SUBQ 09/10/17 21:00 10/10/17 08:59 09/11/17 09:49 Insulin Aspart (NovoLOG) BEFORE MEALS AND HS SUBQ 09/10/17 21:30 10/10/17 21:29 09/11/17 17:07 Lisinopril (Prinivil) 40 mg DAILY ORAL 09/11/17 09:00 10/11/17 08:59 09/11/17 09:47 Morphine Sulfate (Morphine Sulfate) 2 mg Q4H PRN IVP Moderate Pain (Pain Scale 4-6) 09/10/17 21:00 09/17/17 20:59 Nitroglycerin (Ntg) 0.4 mg Q5M PRN SL Prn Chest Pain 09/10/17 20:15 10/10/17 00:14 Ondansetron HCl (Zofran) 4 mg Q6H PRN IVP Nausea & Vomiting 09/10/17 21:00 10/10/17 20:59 Polyethylene Glycol (Miralax) 17 gm DAILYPRN PRN ORAL Constipation 09/11/17 21:00 10/10/17 20:59 Temazepam (Restoril) 15 mg HSPRN PRN ORAL Insomnia 09/10/17 21:00 09/17/17 20:59 Vancomycin HCl (Vanco rx to dose) 1 ea DAILY PRN MISC PER RX PROTOCOL 09/10/17 21:00 10/10/17 20:59 Vancomycin/Sodium Chloride 250 ml @ 166.667 mls/hr Q8HR@0600,1400,2200 IVPB 09/11/17 14:30 09/16/17 14:29 09/11/17 15:00 Citlaly Wang M.D. Sep 11, 2017 18:10
[2017-09-11] MEDS ORDERED: Gastrograffin 30ml RECTAL PRN (18:15)
[2017-09-11] MEDS ORDERED: Gastrograffin 30ml ORAL PRN (18:15)
[2017-09-11] MEDS ORDERED: Isovue-300 100ml vial INJ PRN ×2 (18:15)
[2017-09-11 20:00] VITALS: BP 122/72
[2017-09-11] MEDS ORDERED: Miralax 17gm pkt ORAL PRN (21:00)
[2017-09-12] VITALS: BP 117/71
[2017-09-12] MEDS: Vancomycin 750mg/NS 250ml 250 ML IVPB SCH (00:08)
[2017-09-12] MEDS: Ampicillin/Sulbactam Sod 3 GM in D5W 110 ML IVPB SCH ×5 (00:27→23:32)
[2017-09-12 04:00] VITALS: BP 106/63
[2017-09-12] MEDS: NovoLOG Insulin Flexpen SUBQ SCH ×4 (06:25→20:43)
[2017-09-12] MEDS: Vancomycin 750mg/NS 250ml IVPB SCH (06:32)
[2017-09-12 07:30] LABS: ALANINE AMINOTRANSFERASE 125 U/L (12-78); ALBUMIN 3.2 G/DL (3.4-5.0); ALBUMIN/GLOBULIN RATIO 0.7 (1.0-2.7); ALKALINE PHOSPHATASE 107 U/L (46-116); ANION GAP 8 mmol/L (5-15); ASPARTATE AMINO TRANSFERASE 36 U/L (15-37); BILIRUBIN,TOTAL 0.4 MG/DL (0.2-1.0); BLOOD UREA NITROGEN 8 mg/dL (7-18); CALCIUM 8.6 MG/DL (8.5-10.1); CARBON DIOXIDE 26 MMOL/L (21-32); CHLORIDE 104 MMOL/L (98-107); POTASSIUM 3.9 MMOL/L (3.5-5.1); SODIUM 138 MMOL/L (136-145)
--- NOTE | 2017-09-12 07:35 | General Progress Note ---
Assessment/Plan Problem List: (1) Fatty liver ICD Codes: K76.0 - Fatty (change of) liver, not elsewhere classified SNOMED: 810686723 (2) Liver lesion ICD Codes: K76.9 - Liver disease, unspecified SNOMED: 807692410 (3) Diabetes mellitus ICD Codes: E11.9 - Type 2 diabetes mellitus without complications SNOMED: 85868345 (4) Hypertension ICD Codes: I10 - Essential (primary) hypertension SNOMED: 30660063 (5) History of CVA (cerebrovascular accident) ICD Codes: Z86.73 - Personal history of transient ischemic attack (TIA), and cerebral infarction without residual deficits SNOMED: 786139993 (6) Anemia ICD Codes: D64.9 - Anemia, unspecified SNOMED: 259172789 (7) Abdominal pain ICD Codes: R10.9 - Unspecified abdominal pain SNOMED: 60206219 (8) Abnormal LFTs ICD Codes: R94.5 - Abnormal results of liver function studies SNOMED: 465126985 Assessment/Plan fu CT AFP fu labs +/- GI procedures if needed Subjective ROS Limited/Unobtainable: Yes Allergies: Coded Allergies: No Known Allergies (Unverified , 09/09/17) Subjective abd pain but better Objective Last 24 Hour Vital Signs Date Time Temp Pulse Resp B/P (MAP) Pulse Ox O2 Delivery O2 Flow Rate FiO2 09/12/17 04:00 97.3 69 21 106/63 92 97.3 09/12/17 00:00 98.1 72 21 117/71 93 98.1 09/11/17 21:21 77 122/72 09/11/17 20:00 97.9 77 21 122/72 95 97.9 09/11/17 18:53 90 18 Room Air 21 09/11/17 16:00 98.1 72 16 118/67 95 98.1 09/11/17 12:00 98.6 97 19 94/65 100 98.6 09/11/17 09:48 74 103/59 09/11/17 09:47 103/59 09/11/17 09:00 74 103/59 09/11/17 08:10 93 18 Room Air 21 09/11/17 08:00 97.9 74 16 103/59 97 97.9 Intake and Output 4/27/18 4/28/18 19:00 07:00 Intake Total 1070.000 ml 553.333 ml Output Total 850 ml Balance 1070.000 ml -296.667 ml Intake Oral 600 ml IV Total 470.000 ml 553.333 ml Output Urine Total 850 ml # Voids 6 Laboratory Tests 09/11/17 13:15: Vancomycin Level Trough 9.9 09/12/17 06:20: White Blood Count [Pending], Red Blood Count [Pending], Hemoglobin [Pending], Hematocrit [Pending], Mean Corpuscular Volume [Pending], Mean Corpuscular Hemoglobin [Pending], Mean Corpuscular Hemoglobin Concent [Pending], Red Cell Distribution Width [Pending], Platelet Count [Pending], Mean Platelet Volume [ Pending], Neutrophils (%) (Auto) [Pending], Lymphocytes (%) (Auto) [Pending], Monocytes (%) (Auto) [Pending], Eosinophils (%) (Auto) [Pending], Basophils (%) (Auto) [Pending], Sodium Level [Pending], Potassium Level [Pending], Chloride Level [Pending], Carbon Dioxide Level [Pending], Blood Urea Nitrogen [Pending], Creatinine [Pending], Estimat Glomerular Filtration Rate [Pending], Glucose Level [Pending], Calcium Level [Pending], Total Bilirubin [Pending], Aspartate Amino Transf (AST/SGOT) [Pending], Alanine Aminotransferase (ALT/SGPT) [Pending] , Alkaline Phosphatase [Pending], Total Protein [Pending], Albumin [Pending], Globulin [Pending], Hepatitis A Antibody Total [Pending], Hepatitis B Surface Antibody [Pending], Hepatitis B Core Total Antibody [Pending] Height (Feet): 5 Height (Inches): 8.00 Weight (Pounds): 137 General Appearance: alert EENT: normal ENT inspection Neck: supple Cardiovascular: normal rate Respiratory/Chest: decreased breath sounds Abdomen: normal bowel sounds, soft, tender Pelvis: normal external exam Extremities: non-tender CON GARZA Sep 12, 2017 07:35
[2017-09-12 07:38] LABS: BASOPHILS % (AUTO) 0.7 % (0.0-2.0); EOSINOPHILS % (AUTO) 5.2 % (0.0-3.0); HEMATOCRIT 35.8 % (42.0-52.0); HEMOGLOBIN 12.2 G/DL (14.2-18.0); LYMPHOCYTES % (AUTO) 38.3 % (20.0-45.0); MEAN CORPUSCULAR VOLUME 80 FL (80-99); MONOCYTES % (AUTO) 11.4 % (1.0-10.0); NEUTROPHILS % (AUTO) 44.5 % (45.0-75.0); PLATELET COUNT 239 K/UL (150-450); RED BLOOD COUNT 4.49 M/UL (4.70-6.10); RED CELL DISTRIBUTION WIDTH 14.1 % (11.6-14.8); WHITE BLOOD COUNT 5.3 K/UL (4.8-10.8)
[2017-09-12 08:00] VITALS: BP 115/68
[2017-09-12] MEDS: Lisinopril 20mg tab ORAL SCH (09:00)
[2017-09-12] MEDS: Carvedilol 6.25mg Tab ORAL SCH ×2 (09:00→20:42)
--- NOTE | 2017-09-12 09:17 | General Progress Note ---
Assessment/Plan Problem List: (1) Hypertension ICD Codes: I10 - Essential (primary) hypertension SNOMED: 15165002 (2) Diabetes mellitus ICD Codes: E11.9 - Type 2 diabetes mellitus without complications SNOMED: 99798445 (3) Fever ICD Codes: R50.9 - Fever, unspecified SNOMED: 113727550 (4) Anemia ICD Codes: D64.9 - Anemia, unspecified SNOMED: 595251005 (5) Abnormal LFTs ICD Codes: R94.5 - Abnormal results of liver function studies SNOMED: 941184393 Status: stable, progressing, tolerating diet Assessment/Plan ot pt diet abx per id cbc bmp am dc plan Subjective Constitutional: Reports: weakness Allergies: Coded Allergies: No Known Allergies (Unverified , 09/09/17) All Systems: reviewed and negative except above Subjective calm in bed Objective Last 24 Hour Vital Signs Date Time Temp Pulse Resp B/P (MAP) Pulse Ox O2 Delivery O2 Flow Rate FiO2 09/12/17 08:26 92 18 Room Air 21 09/12/17 08:00 97.7 71 18 115/68 96 Room Air 97.7 09/12/17 04:00 97.3 69 21 106/63 92 97.3 09/12/17 00:00 98.1 72 21 117/71 93 98.1 09/11/17 21:21 77 122/72 09/11/17 20:00 97.9 77 21 122/72 95 97.9 09/11/17 18:53 90 18 Room Air 21 09/11/17 16:00 98.1 72 16 118/67 95 98.1 09/11/17 12:00 98.6 97 19 94/65 100 98.6 09/11/17 09:48 74 103/59 09/11/17 09:47 103/59 Intake and Output 09/11/17 09/12/17 19:00 07:00 Intake Total 1070.000 ml 553.333 ml Output Total 850 ml Balance 1070.000 ml -296.667 ml Intake Oral 600 ml IV Total 470.000 ml 553.333 ml Output Urine Total 850 ml # Voids 6 Laboratory Tests 09/11/17 13:15: Vancomycin Level Trough 9.9 09/12/17 06:20: White Blood Count 5.3, Red Blood Count 4.49L, Hemoglobin 12.2L, Hematocrit 35.8L , Mean Corpuscular Volume 80, Mean Corpuscular Hemoglobin 27.1, Mean Corpuscular Hemoglobin Concent 34.0, Red Cell Distribution Width 14.1, Platelet Count 239, Mean Platelet Volume 6.1L, Neutrophils (%) (Auto) 44.5L, Lymphocytes (%) (Auto) 38.3, Monocytes (%) (Auto) 11.4H, Eosinophils (%) (Auto) 5.2H, Basophils (%) (Auto) 0.7, Sodium Level 138, Potassium Level 3.9, Chloride Level 104, Carbon Dioxide Level 26, Anion Gap 8, Blood Urea Nitrogen 8, Creatinine 1.0 , Estimat Glomerular Filtration Rate > 60, Glucose Level 120H, Calcium Level 8.6 , Total Bilirubin 0.4, Aspartate Amino Transf (AST/SGOT) 36, Alanine Aminotransferase (ALT/SGPT) 125H, Alkaline Phosphatase 107, Total Protein 7.9, Albumin 3.2L, Globulin 4.7, Albumin/Globulin Ratio 0.7L, Hepatitis A Antibody Total [Pending], Hepatitis B Surface Antibody [Pending], Hepatitis B Core Total Antibody [Pending] Height (Feet): 5 Height (Inches): 8.00 Weight (Pounds): 137 General Appearance: lethargic EENT: normal ENT inspection Neck: normal alignment Cardiovascular: normal peripheral pulses, normal rate, regular rhythm Respiratory/Chest: chest wall non-tender, lungs clear, normal breath sounds Abdomen: normal bowel sounds, non tender, soft Extremities: normal inspection Edema: no edema noted Arm (L), no edema noted Arm (R), no edema noted Leg (L), no edema noted Leg (R), no edema noted Pedal (L), no edema noted Pedal (R), no edema noted Generalized Neurologic: motor weakness Skin: normal pigmentation, warm/dry CALVIN MARTELL Sep 12, 2017 09:17
[2017-09-12] MEDS: Heparin 5000 units/ml inj SUBQ SCH ×2 (09:50→20:43)
--- NOTE | 2017-09-12 10:57 | Infectious Diseases Prog Note ---
Assessment/Plan Assessment/Plan Assessment: Sepsis, improving- ?2ry to sinusitis- r.o bacteremia, ?liver pathology (r/o malingnacy) -CXR no acute process -u/a neg -Bcx NTD -CT head: Old left basal ganglia lacunar infarct. Negative for acute intracranial bleed or mass effect. Minimal sinus disease -influenza sc neg -Abd US: Negative for gallstones or dilated ducts. Liver demonstrates diffusely increased echogenicity, consistent with diffuse hepatocellular disease , most likely fatty change. 2 left lobe liver lesions. While cystic-appearing grayscale imaging, technologist reports presence of Doppler flow within them. Further evaluation with multiphasic contrast CT is therefore recommended. Note suboptimal visualization of the pancreas Fever; improvnig -no leukocytosis Elevated LFTs, improving- r/o acute viral hep- r/o other liver pathology US : 2 left lobe liver lesions. -hep panel p -HIV sc neg CVA w/ residual R side hemiplegia SNF resident Plan: -Continue Unasyn # 3 /10 for sinusitis and pending CT abd/p - 09/12 SP IV Vancomycin # 3 -09/10 SP Cefepime #1 -09/09 SP Unasyn x1 -CT abd/p w/ to further eval liver lesions. -f/u Hiv VL, hep serologies -f/u cx -Monitor CBC/BMP, temperatures -aspiration precautions Subjective Allergies: Coded Allergies: No Known Allergies (Unverified , 09/09/17) Subjective comfortable Objective Vital Signs Last 24 Hour Vital Signs Date Time Temp Pulse Resp B/P (MAP) Pulse Ox O2 Delivery O2 Flow Rate FiO2 09/12/17 08:26 92 18 Room Air 21 09/12/17 08:00 97.7 71 18 115/68 96 Room Air 97.7 09/12/17 04:00 97.3 69 21 106/63 92 97.3 09/12/17 00:00 98.1 72 21 117/71 93 98.1 09/11/17 21:21 77 122/72 09/11/17 20:00 97.9 77 21 122/72 95 97.9 09/11/17 18:53 90 18 Room Air 21 09/11/17 16:00 98.1 72 16 118/67 95 98.1 09/11/17 12:00 98.6 97 19 94/65 100 98.6 Height (Feet): 5 Height (Inches): 8.00 Weight (Pounds): 137 HEENT: mucous membranes moist Respiratory/Chest: no respiratory distress Cardiovascular: no gallop/murmur Abdomen: no organomegaly Microbiology Date/Time Source Procedure Growth Status 09/09/17 18:45 Blood Blood Culture - Preliminary NO GROWTH AFTER 24 HOURS Resulted 09/09/17 18:40 Blood Blood Culture - Preliminary NO GROWTH AFTER 24 HOURS Resulted 09/09/17 18:40 Nasal Nares Influenza Types A,B Antigen (DEBORAH) - Final Complete 09/10/17 07:00 Urine,Clean Catch Urine Culture - Final NO GROWTH AFTER 48 HOURS Complete 09/09/17 23:55 Rectum VRE Culture - Final NO VANCOMYCIN RESISTANT ENTEROCOCCUS ... Complete Laboratory Tests Test 09/11/17 13:15 09/12/17 06:20 Vancomycin Level Trough 9.9 ug/mL (5.0-12.0) White Blood Count 5.3 K/UL (4.8-10.8) Red Blood Count 4.49 M/UL (4.70-6.10) L Hemoglobin 12.2 G/DL (14.2-18.0) L Hematocrit 35.8 % (42.0-52.0) L Mean Corpuscular Volume 80 FL (80-99) Mean Corpuscular Hemoglobin 27.1 PG (27.0-31.0) Mean Corpuscular Hemoglobin Concent 34.0 G/DL (32.0-36.0) Red Cell Distribution Width 14.1 % (11.6-14.8) Platelet Count 239 K/UL (150-450) Mean Platelet Volume 6.1 FL (6.5-10.1) L Neutrophils (%) (Auto) 44.5 % (45.0-75.0) L Lymphocytes (%) (Auto) 38.3 % (20.0-45.0) Monocytes (%) (Auto) 11.4 % (1.0-10.0) H Eosinophils (%) (Auto) 5.2 % (0.0-3.0) H Basophils (%) (Auto) 0.7 % (0.0-2.0) Sodium Level 138 MMOL/L (136-145) Potassium Level 3.9 MMOL/L (3.5-5.1) Chloride Level 104 MMOL/L (98-107) Carbon Dioxide Level 26 MMOL/L (21-32) Anion Gap 8 mmol/L (5-15) Blood Urea Nitrogen 8 mg/dL (7-18) Creatinine 1.0 MG/DL (0.55-1.30) Estimat Glomerular Filtration Rate > 60 mL/min (>60) Glucose Level 120 MG/DL (74-106) H Calcium Level 8.6 MG/DL (8.5-10.1) Total Bilirubin 0.4 MG/DL (0.2-1.0) Aspartate Amino Transf (AST/SGOT) 36 U/L (15-37) Alanine Aminotransferase (ALT/SGPT) 125 U/L (12-78) H Alkaline Phosphatase 107 U/L (46-116) Total Protein 7.9 G/DL (6.4-8.2) Albumin 3.2 G/DL (3.4-5.0) L Globulin 4.7 g/dL Albumin/Globulin Ratio 0.7 (1.0-2.7) L Hepatitis A Antibody Total Pending Hepatitis B Surface Antibody Pending Hepatitis B Core Total Antibody Pending Current Medications Medications (Trade) Dose Ordered Sig/Leeroy Route PRN Reason Start Time Stop Time Status Last Admin Dose Admin Acetaminophen (Tylenol) 650 mg Q4H PRN ORAL T>100.5 09/10/17 20:15 10/10/17 00:14 Albuterol/ Ipratropium (Albuterol/ Ipratropium) 3 ml Q4H PRN HHN Shortness of Breath 09/10/17 21:00 09/15/17 20:59 Amlodipine Besylate (Norvasc) 10 mg DAILY ORAL 09/11/17 09:00 10/10/17 08:59 09/11/17 09:48 Ampicillin Sodium/ Sulbactam Sodium 3 gm/Dextrose 110 ml @ 220 mls/hr Q6HR IVPB 09/11/17 00:00 09/17/17 17:59 09/12/17 05:31 Carvedilol (Coreg) 6.25 mg EVERY 12 HOURS ORAL 09/10/17 21:00 10/10/17 08:59 09/11/17 21:21 Dextrose (Dextrose 50%) 25 ml PRN IV Hypoglycemia 09/10/17 20:30 10/10/17 20:29 Dextrose (Dextrose 50%) 50 ml PRN IV hypoglycemia 09/10/17 20:30 10/10/17 20:29 Diatrizoate Meglum/ Diatrizoate Sod (Gastrografin) 60 ml NOW PRN RECTAL Radiology Procedure 09/11/17 18:15 09/13/17 18:05 Gabapentin (Neurontin) 300 mg THREE TIMES A DAY ORAL 09/11/17 09:00 10/10/17 08:59 09/11/17 17:06 Heparin Sodium (Porcine) (Heparin 5000 units/ml) 5,000 units EVERY 12 HOURS SUBQ 09/10/17 21:00 10/10/17 08:59 09/11/17 21:28 Insulin Aspart (NovoLOG) BEFORE MEALS AND HS SUBQ 09/10/17 21:30 10/10/17 21:29 09/12/17 06:25 Ioversol (Isovue) 100 ml NOW PRN INJ Radiology Procedure 09/11/17 18:15 Lisinopril (Prinivil) 40 mg DAILY ORAL 09/11/17 09:00 10/11/17 08:59 09/11/17 09:47 Morphine Sulfate (Morphine Sulfate) 2 mg Q4H PRN IVP Moderate Pain (Pain Scale 4-6) 09/10/17 21:00 09/17/17 20:59 Nitroglycerin (Ntg) 0.4 mg Q5M PRN SL Prn Chest Pain 09/10/17 20:15 10/10/17 00:14 Ondansetron HCl (Zofran) 4 mg Q6H PRN IVP Nausea & Vomiting 09/10/17 21:00 10/10/17 20:59 Polyethylene Glycol (Miralax) 17 gm DAILYPRN PRN ORAL Constipation 09/11/17 21:00 10/10/17 20:59 Temazepam (Restoril) 15 mg HSPRN PRN ORAL Insomnia 09/10/17 21:00 09/17/17 20:59 Vancomycin HCl (Vanco rx to dose) 1 ea DAILY PRN MISC PER RX PROTOCOL 09/10/17 21:00 10/10/17 20:59 Vancomycin/Sodium Chloride 250 ml @ 166.667 mls/hr Q8HR@0600,1400,2200 IVPB 09/11/17 14:30 09/16/17 14:29 09/12/17 06:32 Paramjit Watson MD Sep 12, 2017 10:57
[2017-09-12] MEDS ORDERED: Gastrograffin 30ml ORAL PRN (11:00)
[2017-09-12] MEDS ORDERED: Isovue-300 100ml vial INJ PRN (11:00)
[2017-09-12] MEDS ORDERED: Gastrograffin 30ml RECTAL PRN (11:00)
[2017-09-12 12:00] VITALS: BP 122/71
[2017-09-12 16:00] VITALS: BP 118/69
[2017-09-12 20:00] VITALS: BP 129/76
[2017-09-12] MEDS ORDERED: NS 275ml ONE (20:51)
[2017-09-12] MEDS ORDERED: Tubing IV Secondary IV ONE (21:51)
--- NOTE | 2017-09-12 22:28 | Pulmonology Progress Note ---
Assessment/Plan Problems: (1) Fever (2) Diabetes mellitus (3) Hypertension (4) History of CVA (cerebrovascular accident) Assessment/Plan doing better afebrile now all cultures negative continue empiric abx treatment eating well pt/ot dvt prophylaxis. Subjective ROS Limited/Unobtainable: No Interval Events: doing better Allergies: Coded Allergies: No Known Allergies (Unverified , 09/09/17) Objective Last 24 Hour Vital Signs Date Time Temp Pulse Resp B/P (MAP) Pulse Ox O2 Delivery O2 Flow Rate FiO2 09/12/17 20:42 80 129/76 09/12/17 20:00 98.0 80 20 129/76 96 98.0 09/12/17 19:18 72 18 Room Air 21 09/12/17 16:00 98.0 72 18 118/69 97 Room Air 98.0 09/12/17 12:00 98.0 74 18 122/71 97 Room Air 98.0 09/12/17 09:00 115/68 09/12/17 09:00 92 115/68 09/12/17 09:00 92 115/68 09/12/17 08:26 92 18 Room Air 21 09/12/17 08:00 97.7 71 18 115/68 96 Room Air 97.7 09/12/17 04:00 97.3 69 21 106/63 92 97.3 09/12/17 00:00 98.1 72 21 117/71 93 98.1 Intake and Output 09/11/17 09/12/17 19:00 07:00 Intake Total 1070.000 ml 553.333 ml Output Total 850 ml Balance 1070.000 ml -296.667 ml Intake Oral 600 ml IV Total 470.000 ml 553.333 ml Output Urine Total 850 ml # Voids 6 Objective General Appearance: WD/WN HEENT: normocephalic, atraumatic Respiratory/Chest: chest wall non-tender, lungs clear Cardiovascular: normal peripheral pulses, normal rate, regular rhythm Abdomen: normal bowel sounds, soft, non tender, no organomegaly, non distended Extremities: no cyanosis, no clubbing, no edema Skin: no rash, no lesions Neurologic/Psychiatric: sorter packer II-XII grossly normal Microbiology Date/Time Source Procedure Growth Status 09/10/17 11:35 Blood Blood Culture - Preliminary NO GROWTH AFTER 24 HOURS Resulted 09/10/17 11:30 Blood Blood Culture - Preliminary NO GROWTH AFTER 24 HOURS Resulted 09/09/17 23:55 Nasal Nares MRSA Culture - Final NO METHICILLIN RESISTANT STAPH AUREUS... Complete 09/10/17 07:00 Urine,Clean Catch Urine Culture - Final NO GROWTH AFTER 48 HOURS Complete 09/09/17 23:55 Rectum VRE Culture - Final NO VANCOMYCIN RESISTANT ENTEROCOCCUS ... Complete Laboratory Tests 09/12/17 06:20: White Blood Count 5.3, Red Blood Count 4.49L, Hemoglobin 12.2L, Hematocrit 35.8L , Mean Corpuscular Volume 80, Mean Corpuscular Hemoglobin 27.1, Mean Corpuscular Hemoglobin Concent 34.0, Red Cell Distribution Width 14.1, Platelet Count 239, Mean Platelet Volume 6.1L, Neutrophils (%) (Auto) 44.5L, Lymphocytes (%) (Auto) 38.3, Monocytes (%) (Auto) 11.4H, Eosinophils (%) (Auto) 5.2H, Basophils (%) (Auto) 0.7, Sodium Level 138, Potassium Level 3.9, Chloride Level 104, Carbon Dioxide Level 26, Anion Gap 8, Blood Urea Nitrogen 8, Creatinine 1.0 , Estimat Glomerular Filtration Rate > 60, Glucose Level 120H, Calcium Level 8.6 , Total Bilirubin 0.4, Aspartate Amino Transf (AST/SGOT) 36, Alanine Aminotransferase (ALT/SGPT) 125H, Alkaline Phosphatase 107, Total Protein 7.9, Albumin 3.2L, Globulin 4.7, Albumin/Globulin Ratio 0.7L, Hepatitis A Antibody Total [Pending], Hepatitis B Surface Antibody [Pending], Hepatitis B Core Total Antibody [Pending] 09/12/17 18:30: Stool Occult Blood [Pending] Current Medications Medications (Trade) Dose Ordered Sig/Leeroy Route PRN Reason Start Time Stop Time Status Last Admin Dose Admin Acetaminophen (Tylenol) 650 mg Q4H PRN ORAL T>100.5 09/10/17 20:15 10/10/17 00:14 Albuterol/ Ipratropium (Albuterol/ Ipratropium) 3 ml Q4H PRN HHN Shortness of Breath 09/10/17 21:00 09/15/17 20:59 Amlodipine Besylate (Norvasc) 10 mg DAILY ORAL 09/11/17 09:00 10/10/17 08:59 09/11/17 09:48 Ampicillin Sodium/ Sulbactam Sodium 3 gm/Dextrose 110 ml @ 220 mls/hr Q6HR IVPB 09/11/17 00:00 09/17/17 17:59 09/12/17 17:50 Carvedilol (Coreg) 6.25 mg EVERY 12 HOURS ORAL 09/10/17 21:00 10/10/17 08:59 09/12/17 20:42 Dextrose (Dextrose 50%) 25 ml PRN IV Hypoglycemia 09/10/17 20:30 10/10/17 20:29 Dextrose (Dextrose 50%) 50 ml PRN IV hypoglycemia 09/10/17 20:30 10/10/17 20:29 Diatrizoate Meglum/ Diatrizoate Sod (Gastrografin) 60 ml NOW PRN RECTAL Radiology Procedure 09/11/17 18:15 09/13/17 18:05 Gabapentin (Neurontin) 300 mg THREE TIMES A DAY ORAL 09/11/17 09:00 10/10/17 08:59 09/12/17 17:50 Heparin Sodium (Porcine) (Heparin 5000 units/ml) 5,000 units EVERY 12 HOURS SUBQ 09/10/17 21:00 10/10/17 08:59 09/12/17 20:43 Insulin Aspart (NovoLOG) BEFORE MEALS AND HS SUBQ 09/10/17 21:30 10/10/17 21:29 09/12/17 20:43 Ioversol (Isovue) 100 ml NOW PRN INJ Radiology Procedure 09/11/17 18:15 Lisinopril (Prinivil) 40 mg DAILY ORAL 09/11/17 09:00 10/11/17 08:59 09/11/17 09:47 Morphine Sulfate (Morphine Sulfate) 2 mg Q4H PRN IVP Moderate Pain (Pain Scale 4-6) 09/10/17 21:00 09/17/17 20:59 Nitroglycerin (Ntg) 0.4 mg Q5M PRN SL Prn Chest Pain 09/10/17 20:15 10/10/17 00:14 Ondansetron HCl (Zofran) 4 mg Q6H PRN IVP Nausea & Vomiting 09/10/17 21:00 10/10/17 20:59 Polyethylene Glycol (Miralax) 17 gm DAILYPRN PRN ORAL Constipation 09/11/17 21:00 10/10/17 20:59 09/12/17 16:21 Temazepam (Restoril) 15 mg HSPRN PRN ORAL Insomnia 09/10/17 21:00 09/17/17 20:59 Loco Aguilar MD Sep 12, 2017 22:28
[2017-09-13] VITALS: BP 111/67
[2017-09-13 04:00] VITALS: BP 124/68
[2017-09-13] MEDS: Ampicillin/Sulbactam Sod 3 GM in D5W 110 ML IVPB SCH ×4 (05:40→23:27)
[2017-09-13] MEDS: NovoLOG Insulin Flexpen SUBQ SCH ×4 (06:03→20:40)
--- NOTE | 2017-09-13 07:12 | General Progress Note ---
Assessment/Plan Problem List: (1) Fatty liver ICD Codes: K76.0 - Fatty (change of) liver, not elsewhere classified SNOMED: 962088832 (2) Liver lesion ICD Codes: K76.9 - Liver disease, unspecified SNOMED: 637899069 (3) Diabetes mellitus ICD Codes: E11.9 - Type 2 diabetes mellitus without complications SNOMED: 61486314 (4) Hypertension ICD Codes: I10 - Essential (primary) hypertension SNOMED: 43044793 (5) History of CVA (cerebrovascular accident) ICD Codes: Z86.73 - Personal history of transient ischemic attack (TIA), and cerebral infarction without residual deficits SNOMED: 124785661 (6) Anemia ICD Codes: D64.9 - Anemia, unspecified SNOMED: 773595244 (7) Abdominal pain ICD Codes: R10.9 - Unspecified abdominal pain SNOMED: 63097055 (8) Abnormal LFTs ICD Codes: R94.5 - Abnormal results of liver function studies SNOMED: 281172929 Assessment/Plan CT reviewed plan EGD/ERCP for tomorrow Subjective ROS Limited/Unobtainable: Yes Allergies: Coded Allergies: No Known Allergies (Unverified , 09/09/17) Subjective abd pain but better Objective Last 24 Hour Vital Signs Date Time Temp Pulse Resp B/P (MAP) Pulse Ox O2 Delivery O2 Flow Rate FiO2 09/13/17 04:00 97.1 64 20 124/68 95 97.1 09/13/17 00:00 97.1 63 20 111/67 98 97.1 09/12/17 20:42 80 129/76 09/12/17 20:00 98.0 80 20 129/76 96 98.0 09/12/17 19:18 72 18 Room Air 21 09/12/17 16:00 98.0 72 18 118/69 97 Room Air 98.0 09/12/17 12:00 98.0 74 18 122/71 97 Room Air 98.0 09/12/17 09:00 115/68 09/12/17 09:00 92 115/68 09/12/17 09:00 92 115/68 09/12/17 08:26 92 18 Room Air 21 09/12/17 08:00 97.7 71 18 115/68 96 Room Air 97.7 Intake and Output 09/12/17 09/13/17 19:00 07:00 Intake Total 840 ml Output Total 600 ml Balance 240 ml Intake Oral 400 ml IV Total 440 ml Output Urine Total 600 ml # Voids 4 # Bowel Movements 1 Laboratory Tests 09/12/17 18:30: Stool Occult Blood [Pending] Height (Feet): 5 Height (Inches): 8.00 Weight (Pounds): 137 General Appearance: alert EENT: normal ENT inspection Neck: supple Cardiovascular: normal rate Respiratory/Chest: lungs clear Abdomen: normal bowel sounds, soft, tender Extremities: non-tender CON GARZA Sep 13, 2017 07:12
[2017-09-13 08:00] VITALS: BP 119/71
[2017-09-13 08:04] LABS: BASOPHILS % (AUTO) 0.5 % (0.0-2.0); EOSINOPHILS % (AUTO) 2.7 % (0.0-3.0); HEMATOCRIT 35.8 % (42.0-52.0); HEMOGLOBIN 12.5 G/DL (14.2-18.0); LYMPHOCYTES % (AUTO) 33.5 % (20.0-45.0); MEAN CORPUSCULAR VOLUME 80 FL (80-99); MONOCYTES % (AUTO) 7.4 % (1.0-10.0); NEUTROPHILS % (AUTO) 55.9 % (45.0-75.0); PLATELET COUNT 257 K/UL (150-450); WHITE BLOOD COUNT 5.8 K/UL (4.8-10.8)
--- NOTE | 2017-09-13 08:12 | General Progress Note ---
Assessment/Plan Problem List: (1) Hypertension ICD Codes: I10 - Essential (primary) hypertension SNOMED: 37316637 (2) Diabetes mellitus ICD Codes: E11.9 - Type 2 diabetes mellitus without complications SNOMED: 60242655 (3) Fever ICD Codes: R50.9 - Fever, unspecified SNOMED: 402568350 (4) Anemia ICD Codes: D64.9 - Anemia, unspecified SNOMED: 330836730 (5) Abnormal LFTs ICD Codes: R94.5 - Abnormal results of liver function studies SNOMED: 181968739 Status: stable, progressing, tolerating diet Assessment/Plan ot pt diet abx per id cbc bmp am dc plan Subjective Constitutional: Reports: weakness Allergies: Coded Allergies: No Known Allergies (Unverified , 09/09/17) All Systems: reviewed and negative except above Subjective calm in bed Objective Last 24 Hour Vital Signs Date Time Temp Pulse Resp B/P (MAP) Pulse Ox O2 Delivery O2 Flow Rate FiO2 09/13/17 04:00 97.1 64 20 124/68 95 97.1 09/13/17 00:00 97.1 63 20 111/67 98 97.1 09/12/17 20:42 80 129/76 09/12/17 20:00 98.0 80 20 129/76 96 98.0 09/12/17 19:18 72 18 Room Air 21 09/12/17 16:00 98.0 72 18 118/69 97 Room Air 98.0 09/12/17 12:00 98.0 74 18 122/71 97 Room Air 98.0 09/12/17 09:00 115/68 09/12/17 09:00 92 115/68 09/12/17 09:00 92 115/68 09/12/17 08:26 92 18 Room Air 21 Intake and Output 09/12/17 09/13/17 19:00 07:00 Intake Total 840 ml Output Total 600 ml Balance 240 ml Intake Oral 400 ml IV Total 440 ml Output Urine Total 600 ml # Voids 4 # Bowel Movements 1 Laboratory Tests 09/12/17 18:30: Stool Occult Blood [Pending] 09/13/17 06:10: White Blood Count 5.8, Red Blood Count 4.50L, Hemoglobin 12.5L, Hematocrit 35.8L , Mean Corpuscular Volume 80, Mean Corpuscular Hemoglobin 27.7, Mean Corpuscular Hemoglobin Concent 34.8, Red Cell Distribution Width 14.0, Platelet Count 257, Mean Platelet Volume 6.2L, Neutrophils (%) (Auto) 55.9, Lymphocytes ( %) (Auto) 33.5, Monocytes (%) (Auto) 7.4, Eosinophils (%) (Auto) 2.7, Basophils (%) (Auto) 0.5, Sodium Level [Pending], Potassium Level [Pending], Chloride Level [Pending], Carbon Dioxide Level [Pending], Blood Urea Nitrogen [Pending], Creatinine [Pending], Estimat Glomerular Filtration Rate [Pending], Glucose Level [Pending], Calcium Level [Pending], Total Bilirubin [Pending], Aspartate Amino Transf (AST/SGOT) [Pending], Alanine Aminotransferase (ALT/SGPT) [Pending] , Alkaline Phosphatase [Pending], Total Protein [Pending], Albumin [Pending], Globulin [Pending], Alpha Fetoprotein [Pending] Height (Feet): 5 Height (Inches): 8.00 Weight (Pounds): 137 General Appearance: lethargic EENT: normal ENT inspection Neck: normal alignment Cardiovascular: normal peripheral pulses, normal rate, regular rhythm Respiratory/Chest: chest wall non-tender, lungs clear, normal breath sounds Abdomen: normal bowel sounds, non tender, soft Extremities: normal inspection Edema: no edema noted Arm (L), no edema noted Arm (R), no edema noted Leg (L), no edema noted Leg (R), no edema noted Pedal (L), no edema noted Pedal (R), no edema noted Generalized Neurologic: responsive, motor weakness Skin: normal pigmentation, warm/dry CALVIN MARTELL Sep 13, 2017 08:12
[2017-09-13 08:28] LABS: ALANINE AMINOTRANSFERASE 109 U/L (12-78); ALBUMIN 3.2 G/DL (3.4-5.0); ALBUMIN/GLOBULIN RATIO 0.7 (1.0-2.7); ALKALINE PHOSPHATASE 111 U/L (46-116); ANION GAP 9 mmol/L (5-15); ASPARTATE AMINO TRANSFERASE 34 U/L (15-37); BILIRUBIN,TOTAL 0.3 MG/DL (0.2-1.0); BLOOD UREA NITROGEN 6 mg/dL (7-18); CALCIUM 8.8 MG/DL (8.5-10.1); CARBON DIOXIDE 27 MMOL/L (21-32); CHLORIDE 102 MMOL/L (98-107); CREATININE 1.1 MG/DL (0.55-1.30); SODIUM 138 MMOL/L (136-145)
[2017-09-13] MEDS: Carvedilol 6.25mg Tab ORAL SCH ×2 (09:00→20:39)
[2017-09-13] MEDS: Lisinopril 20mg tab ORAL SCH (09:00)
[2017-09-13] MEDS: Heparin 5000 units/ml inj SUBQ SCH ×2 (09:08→20:41)
--- NOTE | 2017-09-13 10:23 | Diagnostic Imaging Report ---
Indication: Abnormal ultrasound. Abdominal pain Technique: Continuous helical transaxial imaging of the abdomen and pelvis was obtained from the lung bases to the pubic symphysis during intravenous contrast administration. Coronal 2-D reformats were also obtained. Study obtained in a Siemens sensation [address] Automatic Exposure Control was utilized. Total Dose length Product (DLP): [address] Dose Index Volume (CTDIvol): 0.15, 12.13, 12.13, 14.79, 16.14 mGy Comparison: Ultrasound abdomen 09/11/2017 Findings: The study demonstrates biliary ductal dilatation in the liver. The CBD is also dilated with a diameter of about 1.5 cm. This is discrepant with the ultrasound report. In review of the ultrasound study, the technologist incorrectly measured the CBD and did not show the gallstones. Furthermore CT demonstrates hyperattenuated stone or sedimented stones within the dependent part of the CBD near the ampulla Vater. There are small stones in the gallbladder as well. 2 hypodensities demonstrated in the liver. Both of these appear cystic and there is some misregistration due to motion. One of the lesions is 1.2 cm and seen in the lateral segment of the left lobe anteriorly. The other cysts hypodensity is about 1.2 cm as well and demonstrated within the medial segment of the left lobe near the falciform ligament. Spleen is normal size. The pancreas and adrenal glands appear normal. The appendix is normal. There is no hydronephrosis. Diverticula are noted in the colon. There is no evidence of diverticulitis. Moderate formed stool noted in the colon. Prostate hypertrophy is present with the prostate gland measuring 4.3 x 5.7 x 6.0 cm. There is thickening of the wall the urinary bladder which may be related to the prostate enlargement. Aorta is mildly calcified. Tiny retroperitoneal nodes are present nonspecific. IMPRESSION: Choledocholithiasis with biliary ductal dilatation. This is discrepant with the earlier ultrasound findings. Current CT study is more definitive. Cholelithiasis. Discrepant with the earlier ultrasound findings. Current CT study is more definitive. Liver lesions in question appear cystic and require no further evaluation. Each measures about 1.2 cm and noted in the left lobe. Other incidental findings including prostate hypertrophy, thickening of the wall the urinary bladder, normal appendix, atherosclerotic disease. The CT scanner at [facility] is accredited by the [employer] and the scans are performed using dose optimization techniques as appropriate to a performed exam including Automatic Exposure control.
[2017-09-13 11:52] VITALS: BP 129/74
[2017-09-13 16:00] VITALS: BP 118/71
[2017-09-13] MEDS: D5 1/2NS w/KCl 20mEq 1,000 ML IV SCH (16:13)
--- NOTE | 2017-09-13 17:19 | Pulmonology Progress Note ---
Assessment/Plan Problems: (1) Fever (2) Diabetes mellitus (3) Hypertension (4) History of CVA (cerebrovascular accident) Assessment/Plan afebrile now all cultures negative continue empiric abx treatment, on Ampicillin eating well pt/ot dvt prophylaxis. Subjective ROS Limited/Unobtainable: No Interval Events: no new complains Allergies: Coded Allergies: No Known Allergies (Unverified , 09/09/17) Objective Last 24 Hour Vital Signs Date Time Temp Pulse Resp B/P (MAP) Pulse Ox O2 Delivery O2 Flow Rate FiO2 09/13/17 16:00 97.0 67 20 118/71 97 Room Air 97.0 09/13/17 11:52 98.2 71 20 129/74 96 Room Air 98.2 09/13/17 09:54 76 16 Room Air 21 09/13/17 09:00 119/71 09/13/17 09:00 72 119/71 09/13/17 09:00 72 119/71 09/13/17 08:00 97.1 72 20 119/71 94 Room Air 97.1 09/13/17 04:00 97.1 64 20 124/68 95 97.1 09/13/17 00:00 97.1 63 20 111/67 98 97.1 09/12/17 20:42 80 129/76 09/12/17 20:00 98.0 80 20 129/76 96 98.0 09/12/17 19:18 72 18 Room Air 21 Intake and Output 09/12/17 09/13/17 19:00 07:00 Intake Total 840 ml Output Total 600 ml Balance 240 ml Intake Oral 400 ml IV Total 440 ml Output Urine Total 600 ml # Voids 4 # Bowel Movements 1 Objective General Appearance: WD/WN HEENT: normocephalic, atraumatic Respiratory/Chest: chest wall non-tender, lungs clear Cardiovascular: normal peripheral pulses, normal rate, regular rhythm Abdomen: normal bowel sounds, soft, non tender, no organomegaly, non distended Extremities: no cyanosis, no clubbing, no edema Skin: no rash, no lesions 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 Laboratory Tests 09/12/17 18:30: Stool Occult Blood Negative 09/13/17 06:10: White Blood Count 5.8, Red Blood Count 4.50L, Hemoglobin 12.5L, Hematocrit 35.8L , Mean Corpuscular Volume 80, Mean Corpuscular Hemoglobin 27.7, Mean Corpuscular Hemoglobin Concent 34.8, Red Cell Distribution Width 14.0, Platelet Count 257, Mean Platelet Volume 6.2L, Neutrophils (%) (Auto) 55.9, Lymphocytes ( %) (Auto) 33.5, Monocytes (%) (Auto) 7.4, Eosinophils (%) (Auto) 2.7, Basophils (%) (Auto) 0.5, Sodium Level 138, Potassium Level 4.0, Chloride Level 102, Carbon Dioxide Level 27, Anion Gap 9, Blood Urea Nitrogen 6L, Creatinine 1.1, Estimat Glomerular Filtration Rate > 60, Glucose Level 138H, Calcium Level 8.8, Total Bilirubin 0.3, Aspartate Amino Transf (AST/SGOT) 34, Alanine Aminotransferase (ALT/SGPT) 109H, Alkaline Phosphatase 111, Total Protein 8.0, Albumin 3.2L, Globulin 4.8, Albumin/Globulin Ratio 0.7L, Alpha Fetoprotein [ Pending] Current Medications Medications (Trade) Dose Ordered Sig/Leeroy Route PRN Reason Start Time Stop Time Status Last Admin Dose Admin Acetaminophen (Tylenol) 650 mg Q4H PRN ORAL T>100.5 09/10/17 20:15 10/10/17 00:14 Albuterol/ Ipratropium (Albuterol/ Ipratropium) 3 ml Q4H PRN HHN Shortness of Breath 09/10/17 21:00 09/15/17 20:59 Amlodipine Besylate (Norvasc) 10 mg DAILY ORAL 09/11/17 09:00 10/10/17 08:59 09/11/17 09:48 Ampicillin Sodium/ Sulbactam Sodium 3 gm/Dextrose 110 ml @ 220 mls/hr Q6HR IVPB 09/11/17 00:00 09/17/17 17:59 09/13/17 12:12 Carvedilol (Coreg) 6.25 mg EVERY 12 HOURS ORAL 09/10/17 21:00 10/10/17 08:59 09/12/17 20:42 Dextrose (Dextrose 50%) 25 ml PRN IV Hypoglycemia 09/10/17 20:30 10/10/17 20:29 Dextrose (Dextrose 50%) 50 ml PRN IV hypoglycemia 09/10/17 20:30 10/10/17 20:29 Dextrose/ Electrolytes 1,000 ml @ 75 mls/hr [id number] IV 09/13/17 16:00 10/13/17 15:59 09/13/17 16:13 Diatrizoate Meglum/ Diatrizoate Sod (Gastrografin) 60 ml NOW PRN RECTAL Radiology Procedure 09/11/17 18:15 09/13/17 18:05 Gabapentin (Neurontin) 300 mg THREE TIMES A DAY ORAL 09/11/17 09:00 10/10/17 08:59 09/13/17 12:17 Heparin Sodium (Porcine) (Heparin 5000 units/ml) 5,000 units EVERY 12 HOURS SUBQ 09/10/17 21:00 10/10/17 08:59 09/13/17 09:08 Insulin Aspart (NovoLOG) BEFORE MEALS AND HS SUBQ 09/10/17 21:30 10/10/17 21:29 09/13/17 06:03 Ioversol (Isovue) 100 ml NOW PRN INJ Radiology Procedure 09/11/17 18:15 Lisinopril (Prinivil) 40 mg DAILY ORAL 09/11/17 09:00 10/11/17 08:59 09/11/17 09:47 Morphine Sulfate (Morphine Sulfate) 2 mg Q4H PRN IVP Moderate Pain (Pain Scale 4-6) 09/10/17 21:00 09/17/17 20:59 Nitroglycerin (Ntg) 0.4 mg Q5M PRN SL Prn Chest Pain 09/10/17 20:15 10/10/17 00:14 Ondansetron HCl (Zofran) 4 mg Q6H PRN IVP Nausea & Vomiting 09/10/17 21:00 10/10/17 20:59 Polyethylene Glycol (Miralax) 17 gm DAILYPRN PRN ORAL Constipation 09/11/17 21:00 10/10/17 20:59 09/12/17 16:21 Temazepam (Restoril) 15 mg HSPRN PRN ORAL Insomnia 09/10/17 21:00 09/17/17 20:59 Loco Aguilar MD Sep 13, 2017 17:19
[2017-09-13 20:00] VITALS: BP 131/69
[2017-09-14] VITALS (10 sets, daily range): BP systolic 108–129; BP diastolic 66–80
[2017-09-14] MEDS: Ampicillin/Sulbactam Sod 3 GM in D5W 110 ML IVPB SCH ×4 (06:00→23:28)
[2017-09-14] MEDS: D5 1/2NS w/KCl 20mEq 1,000 ML IV SCH ×2 (06:00→17:57)
[2017-09-14] MEDS: NovoLOG Insulin Flexpen SUBQ SCH ×4 (06:00→20:21)
[2017-09-14] MEDS ORDERED: Midazolam 2mg/2ml Inj IVP PRN (08:30)
[2017-09-14] MEDS ORDERED: fentaNYL 100 mcg/2 mL IV PRN (08:30)
[2017-09-14] MEDS ORDERED: DiphenhydrAMINE 50mg/ml Inj IVP PRN (08:30)
[2017-09-14] MEDS ORDERED: Atropine Inj 1mg/10ml Syr IV PRN (08:30)
--- NOTE | 2017-09-14 08:33 | Anethesia Preoperative Eval ---
Anesthesia Pre-op PMH/ROS General Date of Evaluation: Sep 14, 2017 Time of Evaluation: 08:25 Anesthesiologist: faiza ASA Score: ASA 4 Mallampati Score Class I : Soft palate, uvula, fauces, pillars visible Class II: Soft palate, uvula, fauces visible Class III: Soft palate, base of uvula visible Class IV: Only hard plate visible Mallampati Classification: Class II Surgeon: bambi Surgical Procedure: egd/ercp Anesthesia History: none Family History: no anesthesia problems Allergies: Coded Allergies: No Known Allergies (Unverified , 09/09/17) Medications: see eMAR Past Medical History Cardiovascular: Reports: HTN, other - pacemaker Gastrointestinal/Genitourinary: Reports: GERD Neurologic/Psychiatric: Reports: CVA Endocrine: Reports: DM Anesthesia Pre-op Phys. Exam Physician Exam Last Vital Signs Date Time Temp Pulse Resp B/P (MAP) Pulse Ox O2 Delivery O2 Flow Rate FiO2 09/14/17 08:05 78 18 Room Air 21 09/14/17 04:00 98.2 129/67 97 98.2 Constitutional: NAD Neurologic: CN 2-12 intact Cardiovascular: RRR Respiratory: CTA Gastrointestinal: S/NT/ND Airway Exam Mallampati Score: Class II MO: limited TMD: 2fb ROM: limited Anesthesia Pre-op A/P Labs Labs Test 09/11/17 13:15 09/12/17 06:20 09/12/17 18:30 09/13/17 06:10 Vancomycin Level Trough 9.9 ug/mL (5.0-12.0) White Blood Count 5.3 K/UL (4.8-10.8) 5.8 K/UL (4.8-10.8) Red Blood Count 4.49 M/UL (4.70-6.10) 4.50 M/UL (4.70-6.10) Hemoglobin 12.2 G/DL (14.2-18.0) 12.5 G/DL (14.2-18.0) Hematocrit 35.8 % (42.0-52.0) 35.8 % (42.0-52.0) Mean Corpuscular Volume 80 FL (80-99) 80 FL (80-99) Mean Corpuscular Hemoglobin 27.1 PG (27.0-31.0) 27.7 PG (27.0-31.0) Mean Corpuscular Hemoglobin Concent 34.0 G/DL (32.0-36.0) 34.8 G/DL (32.0-36.0) Red Cell Distribution Width 14.1 % (11.6-14.8) 14.0 % (11.6-14.8) Platelet Count 239 K/UL (150-450) 257 K/UL (150-450) Mean Platelet Volume 6.1 FL (6.5-10.1) 6.2 FL (6.5-10.1) Neutrophils (%) (Auto) 44.5 % (45.0-75.0) 55.9 % (45.0-75.0) Lymphocytes (%) (Auto) 38.3 % (20.0-45.0) 33.5 % (20.0-45.0) Monocytes (%) (Auto) 11.4 % (1.0-10.0) 7.4 % (1.0-10.0) Eosinophils (%) (Auto) 5.2 % (0.0-3.0) 2.7 % (0.0-3.0) Basophils (%) (Auto) 0.7 % (0.0-2.0) 0.5 % (0.0-2.0) Sodium Level 138 MMOL/L (136-145) 138 MMOL/L (136-145) Potassium Level 3.9 MMOL/L (3.5-5.1) 4.0 MMOL/L (3.5-5.1) Chloride Level 104 MMOL/L (98-107) 102 MMOL/L (98-107) Carbon Dioxide Level 26 MMOL/L (21-32) 27 MMOL/L (21-32) Anion Gap 8 mmol/L (5-15) 9 mmol/L (5-15) Blood Urea Nitrogen 8 mg/dL (7-18) 6 mg/dL (7-18) Creatinine 1.0 MG/DL (0.55-1.30) 1.1 MG/DL (0.55-1.30) Estimat Glomerular Filtration Rate > 60 mL/min (>60) > 60 mL/min (>60) Glucose Level 120 MG/DL (74-106) 138 MG/DL (74-106) Calcium Level 8.6 MG/DL (8.5-10.1) 8.8 MG/DL (8.5-10.1) Total Bilirubin 0.4 MG/DL (0.2-1.0) 0.3 MG/DL (0.2-1.0) Aspartate Amino Transf (AST/SGOT) 36 U/L (15-37) 34 U/L (15-37) Alanine Aminotransferase (ALT/SGPT) 125 U/L (12-78) 109 U/L (12-78) Alkaline Phosphatase 107 U/L (46-116) 111 U/L (46-116) Total Protein 7.9 G/DL (6.4-8.2) 8.0 G/DL (6.4-8.2) Albumin 3.2 G/DL (3.4-5.0) 3.2 G/DL (3.4-5.0) Globulin 4.7 g/dL 4.8 g/dL Albumin/Globulin Ratio 0.7 (1.0-2.7) 0.7 (1.0-2.7) Hepatitis A Antibody Total Positive (Negative) Hepatitis B Surface Antibody <3.1 mIU/mL (Immunity>9.9) Hepatitis B Core Total Antibody Negative (Negative) Stool Occult Blood Negative (NEGATIVE) Test 09/14/17 07:00 White Blood Count 4.1 K/UL (4.8-10.8) Red Blood Count 4.45 M/UL (4.70-6.10) Hemoglobin 11.8 G/DL (14.2-18.0) Hematocrit 35.6 % (42.0-52.0) Mean Corpuscular Volume 80 FL (80-99) Mean Corpuscular Hemoglobin 26.6 PG (27.0-31.0) Mean Corpuscular Hemoglobin Concent 33.2 G/DL (32.0-36.0) Red Cell Distribution Width 13.7 % (11.6-14.8) Platelet Count 255 K/UL (150-450) Mean Platelet Volume 5.8 FL (6.5-10.1) Neutrophils (%) (Auto) 43.8 % (45.0-75.0) Lymphocytes (%) (Auto) 40.7 % (20.0-45.0) Monocytes (%) (Auto) 10.0 % (1.0-10.0) Eosinophils (%) (Auto) 5.1 % (0.0-3.0) Basophils (%) (Auto) 0.5 % (0.0-2.0) Prothrombin Time 10.0 SEC (9.30-11.50) Prothromb Time International Ratio 1.0 (0.9-1.1) Sodium Level 139 MMOL/L (136-145) Potassium Level 4.0 MMOL/L (3.5-5.1) Chloride Level 105 MMOL/L (98-107) Carbon Dioxide Level 26 MMOL/L (21-32) Anion Gap 8 mmol/L (5-15) Blood Urea Nitrogen 7 mg/dL (7-18) Creatinine 1.1 MG/DL (0.55-1.30) Estimat Glomerular Filtration Rate > 60 mL/min (>60) Glucose Level 140 MG/DL (74-106) Calcium Level 8.5 MG/DL (8.5-10.1) Total Bilirubin 0.3 MG/DL (0.2-1.0) Aspartate Amino Transf (AST/SGOT) 130 U/L (15-37) Alanine Aminotransferase (ALT/SGPT) 193 U/L (12-78) Alkaline Phosphatase 131 U/L (46-116) Total Protein 7.8 G/DL (6.4-8.2) Albumin 3.1 G/DL (3.4-5.0) Globulin 4.7 g/dL Albumin/Globulin Ratio 0.7 (1.0-2.7) Risk Assessment & Plan Assessment: [email or web address] Plan: mac Status Change Before Surgery: No Pre-Antibiotics Drug: JIMI Mays Sep 14, 2017 08:33
[2017-09-14] MEDS: Heparin 5000 units/ml inj SUBQ SCH ×2 (09:00→20:21)
[2017-09-14 09:13] LABS: BASOPHILS % (AUTO) 0.5 % (0.0-2.0); EOSINOPHILS % (AUTO) 5.1 % (0.0-3.0); HEMATOCRIT 35.6 % (42.0-52.0); HEMOGLOBIN 11.8 G/DL (14.2-18.0); LYMPHOCYTES % (AUTO) 40.7 % (20.0-45.0); MEAN CORPUSCULAR VOLUME 80 FL (80-99); NEUTROPHILS % (AUTO) 43.8 % (45.0-75.0); PLATELET COUNT 255 K/UL (150-450); RED BLOOD COUNT 4.45 M/UL (4.70-6.10); RED CELL DISTRIBUTION WIDTH 13.7 % (11.6-14.8); WHITE BLOOD COUNT 4.1 K/UL (4.8-10.8)
[2017-09-14] MEDS: Carvedilol 6.25mg Tab ORAL SCH ×2 (09:26→20:15)
[2017-09-14] MEDS: Lisinopril 20mg tab ORAL SCH (09:26)
[2017-09-14 10:17] LABS: ALANINE AMINOTRANSFERASE 193 U/L (12-78); ALBUMIN 3.1 G/DL (3.4-5.0); ALBUMIN/GLOBULIN RATIO 0.7 (1.0-2.7); ALKALINE PHOSPHATASE 131 U/L (46-116); ANION GAP 8 mmol/L (5-15); ASPARTATE AMINO TRANSFERASE 130 U/L (15-37); BILIRUBIN,TOTAL 0.3 MG/DL (0.2-1.0); BLOOD UREA NITROGEN 7 mg/dL (7-18); CALCIUM 8.5 MG/DL (8.5-10.1); CARBON DIOXIDE 26 MMOL/L (21-32); CHLORIDE 105 MMOL/L (98-107); CREATININE 1.1 MG/DL (0.55-1.30); SODIUM 139 MMOL/L (136-145)
--- NOTE | 2017-09-14 10:36 | Pre-Procedure Note/Attestation ---
Pre-Procedure Note/Attestation Complete Prior to Procedure Planned Procedure: not applicable Procedure Narrative: choledocholithiasis Indications for Procedure Pre-Operative Diagnosis: ercp Attestation I attest that I discussed the nature of the procedure; its benefits; risks and complications; and alternatives (and the risks and benefits of such alternatives ), prior to the procedure, with the patient (or the patient's legal access representative). I attest that, if there was a reasonable possibility of needing a blood transfusion, the patient (or the patient's legal access representative) was given the [facility] standardized written summary, pursuant to the [place] Blood Safety Act ([place] Health and Safety Code # 1645, as amended). I attest that I re-evaluated the patient just prior to the surgery and that there has been no change in the patient's H&P, except as documented below: CON GARZA Sep 14, 2017 10:36
[2017-09-14] MEDS ORDERED: NS 500ML IV ONE (10:50)
[2017-09-14] MEDS ORDERED: Tubing IV Extension IV ONE (10:50)
--- NOTE | 2017-09-14 10:52 | Cardiology Report ---
APPROVED REPORT EXAM: Two-dimensional and M-mode echocardiogram with Doppler and color Doppler. INDICATION Vegetation M-Mode DIMENSIONS IVSd1.0 (0.7-1.1cm)Left Atrium (MM)3.8 (1.6-4.0cm) LVDd4.4 (3.5-5.6cm)Aortic Root2.7 (2.0-3.7cm) PWd1.0 (0.7-1.1cm)Aortic Cusp Exc.1.7 (1.5-2.0cm) LVDs2.9 (2.5-4.0cm) PWs1.5 cm Normal left ventricular chamber size, systolic function and wall motion. Left ventricular ejection fraction estimated to be 60-65 %. No evidenve of left ventricular hypertrophy. No evidence of pericardial effusion. All other cardiac chamber sizes are within normal limits. Focal aortic valve sclerosis with adequate cusp excursion. Thickened mitral valve leaflets with normal excursion. Mild mtral annulus and aortic root calcification. Normal pulmonic valve structure. Normal tricuspid valve structure. IVC is normal in size with physiological collapse. No discrete vegetations seen, however SBE may not be excluded by transthoracic 2-D echo. Consider ADOLPH if clinically indicated. A color flow and spectral Doppler study was performed and revealed: No aortic insufficiency. Trace mitral regurgitation. Mitral diastolic velocities suggest mild left ventricular diastolic dysfunction (Grade I). No tricuspid regurgitation. Tricuspid systolic velocities suggests peak right ventricular systolic pressure of 7 mmHg. Trace pulmonic regurgitation present.
[2017-09-14] MEDS ORDERED: Midazolam 2mg/2ml Inj ONE (11:00)
[2017-09-14] MEDS ORDERED: Lidocaine 1% MPF 10mg/ml 5ml ONE (11:00)
[2017-09-14] MEDS ORDERED: Iothalamate Meglumine 60% 30ML INJ ONE (11:00)
[2017-09-14] MEDS ORDERED: Propofol 200mg/20ml IV ONE (11:00)
--- NOTE | 2017-09-14 12:33 | Immediate Post-Op Evaluation ---
Immediate Post-Op Evalulation Immediate Post-Op Evalulation Procedure: egd/ercp Date of Evaluation: Sep 14, 2017 Time of Evaluation: 12:22 IV Fluids: 500ml 0.9ns Blood Products: none Estimated Blood Loss: neglgigble Blood Pressure Diastolic: 77 Pulse Rate: 73 Respiratory Rate: 18 O2 Sat by Pulse Oximetry: 99 Temperature (Fahrenheit): 97.4 Pain Score (1-10): 0 Nausea: No Vomiting: No Complications none Patient Status: awake, reacts, patent Hydration Status: adequate Drug: JIMI Mays Sep 14, 2017 12:33
--- NOTE | 2017-09-14 12:34 | 48 Hour Post Anesthesia Eval ---
Post Anesthesia Evaluation Procedure: egd/ercp Date of Evaluation: Sep 14, 2017 Time of Evaluation: 12:24 Blood Pressure Systolic: 116 0: 77 Pulse Rate: 73 Respiratory Rate: 18 Temperature (Fahrenheit): 97.4 O2 Sat by Pulse Oximetry: 99 Airway: patent Nausea: No Vomiting: No Pain Intensity: 0 Hydration Status: adequate Cardiopulmonary Status: stable Mental Status/LOC: patient returned to baseline Post-Anesthesia Complications: none Follow-up care needed: N/A JIMI DELACRUZ Sep 14, 2017 12:34
--- NOTE | 2017-09-14 12:43 | Endoscopy Procedure Note ---
Endoscopy Procedure Note General Indication for Procedure: choledocholithiasis Procedures Performed: ERCP Operative Findings/Diagnosis: same Specimen: yes Pt Tolerated Procedure Well: Yes Estimated Blood Loss: none Anesthesia Anesthesiologist: gaudencio Anesthesia: MAC Inserted Devices Implant(s) used?: No GI Core Measures 50 yrs or older w/o bx or poly: Not Applicable 10yrs. F/U not recommended: Not Applicable CON GARZA Sep 14, 2017 12:43
--- NOTE | 2017-09-14 12:48 | Pulmonology Progress Note ---
Assessment/Plan Problems: (1) Fever (2) Diabetes mellitus (3) Hypertension (4) History of CVA (cerebrovascular accident) Assessment/Plan afebrile now all cultures negative continue empiric abx treatment, on Ampicillin eating well pt/ot dvt prophylaxis. Subjective ROS Limited/Unobtainable: No Constitutional: Reports: no symptoms HEENT: Repors: no symptoms Allergies: Coded Allergies: No Known Allergies (Unverified , 09/09/17) Objective Last 24 Hour Vital Signs Date Time Temp Pulse Resp B/P (MAP) Pulse Ox O2 Delivery O2 Flow Rate FiO2 09/14/17 12:35 98.0 72 15 121/69 99 Nasal Cannula 3.0 98.0 09/14/17 12:34 207.3 73 18 99 09/14/17 12:33 207.3 73 18 99 09/14/17 12:20 69 13 115/74 99 Nasal Cannula 3.0 09/14/17 12:15 73 13 114/77 99 Nasal Cannula 3.0 09/14/17 12:10 97.4 77 23 108/80 97 Nasal Cannula 3.0 97.4 09/14/17 09:26 129/67 09/14/17 09:26 78 129/67 09/14/17 09:26 78 129/67 09/14/17 08:05 78 18 Room Air 21 09/14/17 08:00 97.1 64 19 117/71 95 Room Air 97.1 09/14/17 04:00 98.2 72 20 129/67 97 Room Air 98.2 09/14/17 00:00 98.7 76 20 123/69 98 98.7 09/13/17 21:55 77 16 Room Air 21 09/13/17 20:39 73 131/69 09/13/17 20:00 98.0 73 20 131/69 97 98.0 09/13/17 16:00 97.0 67 20 118/71 97 Room Air 97.0 Intake and Output 09/13/17 09/14/17 19:00 07:00 Intake Total 850 ml 1265 ml Output Total 550 ml Balance 850 ml 715 ml Intake Oral 480 ml IV Total 370 ml 1265 ml Output Urine Total 550 ml # Voids 3 Objective General Appearance: WD/WN HEENT: normocephalic, atraumatic Respiratory/Chest: chest wall non-tender, lungs clear Cardiovascular: normal peripheral pulses, normal rate, regular rhythm Abdomen: normal bowel sounds, soft, non tender, no organomegaly, non distended Extremities: no cyanosis, no clubbing, no edema Skin: no rash, no lesions Neurologic/Psychiatric: quality facilitator II-XII grossly normal Laboratory Tests 09/14/17 07:00: White Blood Count 4.1L, Red Blood Count 4.45L, Hemoglobin 11.8L, Hematocrit 35.6L, Mean Corpuscular Volume 80, Mean Corpuscular Hemoglobin 26.6L, Mean Corpuscular Hemoglobin Concent 33.2, Red Cell Distribution Width 13.7, Platelet Count 255, Mean Platelet Volume 5.8L, Neutrophils (%) (Auto) 43.8L, Lymphocytes (%) (Auto) 40.7, Monocytes (%) (Auto) 10.0, Eosinophils (%) (Auto) 5.1H, Basophils (%) (Auto) 0.5, Prothrombin Time 10.0, Prothromb Time International Ratio 1.0, Sodium Level 139, Potassium Level 4.0, Chloride Level 105, Carbon Dioxide Level 26, Anion Gap 8, Blood Urea Nitrogen 7, Creatinine 1.1, Estimat Glomerular Filtration Rate > 60, Glucose Level 140H, Calcium Level 8.5, Total Bilirubin 0.3, Aspartate Amino Transf (AST/SGOT) 130H, Alanine Aminotransferase (ALT/SGPT) 193H, Alkaline Phosphatase 131H, Total Protein 7.8, Albumin 3.1L, Globulin 4.7, Albumin/Globulin Ratio 0.7L Current Medications Medications (Trade) Dose Ordered Sig/Leeroy Route PRN Reason Start Time Stop Time Status Last Admin Dose Admin Acetaminophen (Tylenol) 650 mg Q4H PRN ORAL T>100.5 09/10/17 20:15 10/10/17 00:14 Al Hydroxide/Mg Hydroxide (Mylanta) 15 ml Q1H PRN ORAL gi upset 09/14/17 08:30 09/14/17 14:00 Albuterol/ Ipratropium (Albuterol/ Ipratropium) 3 ml Q4H PRN HHN Shortness of Breath 09/10/17 21:00 09/15/17 20:59 Amlodipine Besylate (Norvasc) 10 mg DAILY ORAL 09/11/17 09:00 10/10/17 08:59 09/14/17 09:26 Ampicillin Sodium/ Sulbactam Sodium 3 gm/Dextrose 110 ml @ 220 mls/hr Q6HR IVPB 09/11/17 00:00 09/17/17 17:59 09/14/17 06:00 Atropine Sulfate (Atropine) 0.5 mg Q5M PRN IV bpm less than 45 09/14/17 08:30 09/14/17 14:00 Carvedilol (Coreg) 6.25 mg EVERY 12 HOURS ORAL 09/10/17 21:00 10/10/17 08:59 09/14/17 09:26 Dextrose (Dextrose 50%) 25 ml PRN IV Hypoglycemia 09/10/17 20:30 10/10/17 20:29 Dextrose (Dextrose 50%) 50 ml PRN IV hypoglycemia 09/10/17 20:30 10/10/17 20:29 Dextrose/ Electrolytes 1,000 ml @ 75 mls/hr [id number] IV 09/13/17 16:00 10/13/17 15:59 09/14/17 06:00 Diphenhydramine HCl (Benadryl) 25 mg Q15M PRN IVP Itching 09/14/17 08:30 09/14/17 14:00 Fentanyl Citrate (Sublimaze 100 mcg/2 mL) 25 mcg Q10M PRN IV Moderate Pain (Pain Scale 4-6) 09/14/17 08:30 09/14/17 14:00 Gabapentin (Neurontin) 300 mg THREE TIMES A DAY ORAL 09/11/17 09:00 10/10/17 08:59 09/14/17 09:26 Heparin Sodium (Porcine) (Heparin 5000 units/ml) 5,000 units EVERY 12 HOURS SUBQ 09/10/17 21:00 10/10/17 08:59 09/13/17 09:08 Hydralazine HCl (Apresoline) 5 mg Q30M PRN IV SBP>160 OR___/DBP>90 OR___ 09/14/17 08:30 09/14/17 14:00 Insulin Aspart (NovoLOG) BEFORE MEALS AND HS SUBQ 09/10/17 21:30 10/10/17 21:29 09/13/17 06:03 Ioversol (Isovue) 100 ml NOW PRN INJ Radiology Procedure 09/11/17 18:15 Lisinopril (Prinivil) 40 mg DAILY ORAL 09/11/17 09:00 10/11/17 08:59 09/14/17 09:26 Midazolam HCl (Versed 2mg/2ml vial) 1 mg Q15M PRN IVP For Anxiety 09/14/17 08:30 09/14/17 14:00 Morphine Sulfate (Morphine Sulfate) 2 mg Q4H PRN IVP Moderate Pain (Pain Scale 4-6) 09/10/17 21:00 09/17/17 20:59 Nitroglycerin (Ntg) 0.4 mg Q5M PRN SL Prn Chest Pain 09/10/17 20:15 10/10/17 00:14 Ondansetron HCl (Zofran) 4 mg Q1H PRN IVP Nausea & Vomiting 09/14/17 08:30 09/14/17 14:00 Ondansetron HCl (Zofran) 4 mg Q6H PRN IVP Nausea & Vomiting 09/10/17 21:00 10/10/17 20:59 Polyethylene Glycol (Miralax) 17 gm DAILYPRN PRN ORAL Constipation 09/11/17 21:00 10/10/17 20:59 09/12/17 16:21 Temazepam (Restoril) 15 mg HSPRN PRN ORAL Insomnia 09/10/17 21:00 09/17/17 20:59 Loco Aguilar MD Sep 14, 2017 12:48
--- NOTE | 2017-09-14 13:05 | General Progress Note ---
Assessment/Plan Problem List: (1) Hypertension ICD Codes: I10 - Essential (primary) hypertension SNOMED: 14332596 (2) Diabetes mellitus ICD Codes: E11.9 - Type 2 diabetes mellitus without complications SNOMED: 56319896 (3) Fever ICD Codes: R50.9 - Fever, unspecified SNOMED: 023434867 (4) Anemia ICD Codes: D64.9 - Anemia, unspecified SNOMED: 059379815 (5) Abnormal LFTs ICD Codes: R94.5 - Abnormal results of liver function studies SNOMED: 760293961 Status: stable, progressing, tolerating diet Assessment/Plan ot pt diet abx per id cbc bmp am dc if clear Subjective Constitutional: Reports: weakness Allergies: Coded Allergies: No Known Allergies (Unverified , 09/09/17) All Systems: reviewed and negative except above Subjective calm in bed sleepy Objective Last 24 Hour Vital Signs Date Time Temp Pulse Resp B/P (MAP) Pulse Ox O2 Delivery O2 Flow Rate FiO2 09/14/17 12:35 98.0 72 15 121/69 99 Nasal Cannula 3.0 98.0 09/14/17 12:34 207.3 73 18 99 09/14/17 12:33 207.3 73 18 99 09/14/17 12:20 69 13 115/74 99 Nasal Cannula 3.0 09/14/17 12:15 73 13 114/77 99 Nasal Cannula 3.0 09/14/17 12:10 97.4 77 23 108/80 97 Nasal Cannula 3.0 97.4 09/14/17 09:26 129/67 09/14/17 09:26 78 129/67 09/14/17 09:26 78 129/67 09/14/17 08:05 78 18 Room Air 21 09/14/17 08:00 97.1 64 19 117/71 95 Room Air 97.1 09/14/17 04:00 98.2 72 20 129/67 97 Room Air 98.2 09/14/17 00:00 98.7 76 20 123/69 98 98.7 09/13/17 21:55 77 16 Room Air 21 09/13/17 20:39 73 131/69 09/13/17 20:00 98.0 73 20 131/69 97 98.0 09/13/17 16:00 97.0 67 20 118/71 97 Room Air 97.0 Intake and Output 09/13/17 09/14/17 19:00 07:00 Intake Total 850 ml 1265 ml Output Total 550 ml Balance 850 ml 715 ml Intake Oral 480 ml IV Total 370 ml 1265 ml Output Urine Total 550 ml # Voids 3 Laboratory Tests 09/14/17 07:00: White Blood Count 4.1L, Red Blood Count 4.45L, Hemoglobin 11.8L, Hematocrit 35.6L, Mean Corpuscular Volume 80, Mean Corpuscular Hemoglobin 26.6L, Mean Corpuscular Hemoglobin Concent 33.2, Red Cell Distribution Width 13.7, Platelet Count 255, Mean Platelet Volume 5.8L, Neutrophils (%) (Auto) 43.8L, Lymphocytes (%) (Auto) 40.7, Monocytes (%) (Auto) 10.0, Eosinophils (%) (Auto) 5.1H, Basophils (%) (Auto) 0.5, Prothrombin Time 10.0, Prothromb Time International Ratio 1.0, Sodium Level 139, Potassium Level 4.0, Chloride Level 105, Carbon Dioxide Level 26, Anion Gap 8, Blood Urea Nitrogen 7, Creatinine 1.1, Estimat Glomerular Filtration Rate > 60, Glucose Level 140H, Calcium Level 8.5, Total Bilirubin 0.3, Aspartate Amino Transf (AST/SGOT) 130H, Alanine Aminotransferase (ALT/SGPT) 193H, Alkaline Phosphatase 131H, Total Protein 7.8, Albumin 3.1L, Globulin 4.7, Albumin/Globulin Ratio 0.7L Height (Feet): 5 Height (Inches): 6.00 Weight (Pounds): 137 General Appearance: lethargic EENT: normal ENT inspection Neck: normal alignment Cardiovascular: normal peripheral pulses, normal rate, regular rhythm Respiratory/Chest: chest wall non-tender, lungs clear, normal breath sounds Abdomen: normal bowel sounds, non tender, soft Extremities: normal inspection Edema: no edema noted Arm (L), no edema noted Arm (R), no edema noted Leg (L), no edema noted Leg (R), no edema noted Pedal (L), no edema noted Pedal (R), no edema noted Generalized Neurologic: motor weakness Skin: normal pigmentation, warm/dry CALVIN MARTELL Sep 14, 2017 13:05
--- NOTE | 2017-09-14 14:37 | Infectious Diseases Prog Note ---
Assessment/Plan Assessment/Plan Sepsis, SP- 2ry to likely cholangitis (+choledocholithiasis, fever, elevated LFTs, RUQ pain) and sinusitis- -CXR no acute process -u/a neg; ucx neg -Bcx NTD -CT abd/p: Choledocholithiasis with biliary ductal dilatation. This is discrepant with the earlier ultrasound findings. Current CT study is more definitive. Cholelithiasis. Discrepant with the earlier ultrasound findings. Current CT study is more definitive. Liver lesions in question appear cystic and require no further evaluation. Each measures about 1.2 cm and noted in the left lobe. Other incidental findings including prostate hypertrophy, thickening of the wall the urinary bladder, normal appendix, atherosclerotic disease. -CT head: Old left basal ganglia lacunar infarct. Negative for acute intracranial bleed or mass effect. Minimal sinus disease -influenza sc neg -Abd US: Negative for gallstones or dilated ducts. Liver demonstrates diffusely increased echogenicity, consistent with diffuse hepatocellular disease , most likely fatty change. 2 left lobe liver lesions. While cystic-appearing grayscale imaging, technologist reports presence of Doppler flow within them. Further evaluation with multiphasic contrast CT is therefore recommended. Note suboptimal visualization of the pancreas Fever; resolved -no leukocytosis Elevated LFTs 2ry to cholangitis/choledocholithiasis , improving, now worsened after ERCP US : 2 left lobe liver lesions. 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 - 09/12 SP IV Vancomycin # 3 -09/10 SP Cefepime #1 -09/09 SP Unasyn x1 -f/u Hiv VL -f/u cx -Monitor CBC/BMP, temperatures -aspiration precautions Subjective Allergies: Coded Allergies: No Known Allergies (Unverified , 09/09/17) Subjective afebrile no leukocytosis Bcx NTD s/p ERCP today for choledocholithiasis Objective Vital Signs Last 24 Hour Vital Signs Date Time Temp Pulse Resp B/P (MAP) Pulse Ox O2 Delivery O2 Flow Rate FiO2 09/14/17 13:00 97.5 68 20 125/76 95 97.5 09/14/17 12:35 98.0 72 15 121/69 99 Nasal Cannula 3.0 98.0 09/14/17 12:34 207.3 73 18 99 09/14/17 12:33 207.3 73 18 99 09/14/17 12:20 69 13 115/74 99 Nasal Cannula 3.0 09/14/17 12:15 73 13 114/77 99 Nasal Cannula 3.0 09/14/17 12:10 97.4 77 23 108/80 97 Nasal Cannula 3.0 97.4 09/14/17 09:26 129/67 09/14/17 09:26 78 129/67 09/14/17 09:26 78 129/67 09/14/17 08:05 78 18 Room Air 21 09/14/17 08:00 97.1 64 19 117/71 95 Room Air 97.1 09/14/17 04:00 98.2 72 20 129/67 97 Room Air 98.2 09/14/17 00:00 98.7 76 20 123/69 98 98.7 09/13/17 21:55 77 16 Room Air 21 09/13/17 20:39 73 131/69 09/13/17 20:00 98.0 73 20 131/69 97 98.0 09/13/17 16:00 97.0 67 20 118/71 97 Room Air 97.0 Height (Feet): 5 Height (Inches): 6.00 Weight (Pounds): 137 Objective General Appearance: WD/WN Lines, tubes and drains: peripheral HEENT: normocephalic, atraumatic Neck: non-tender, normal alignment Respiratory/Chest: chest wall non-tender, lungs clear Cardiovascular/Chest: normal peripheral pulses, normal rate Abdomen: normal bowel sounds, RUQ TTP Genitourinary/Rectal: normal genital exam, normal rectal exam Extremities: normal range of motion, non-tender Skin Exam: warm/dry Laboratory Tests Test 09/14/17 07:00 White Blood Count 4.1 K/UL (4.8-10.8) L Red Blood Count 4.45 M/UL (4.70-6.10) L Hemoglobin 11.8 G/DL (14.2-18.0) L Hematocrit 35.6 % (42.0-52.0) L Mean Corpuscular Volume 80 FL (80-99) Mean Corpuscular Hemoglobin 26.6 PG (27.0-31.0) L Mean Corpuscular Hemoglobin Concent 33.2 G/DL (32.0-36.0) Red Cell Distribution Width 13.7 % (11.6-14.8) Platelet Count 255 K/UL (150-450) Mean Platelet Volume 5.8 FL (6.5-10.1) L Neutrophils (%) (Auto) 43.8 % (45.0-75.0) L Lymphocytes (%) (Auto) 40.7 % (20.0-45.0) Monocytes (%) (Auto) 10.0 % (1.0-10.0) Eosinophils (%) (Auto) 5.1 % (0.0-3.0) H Basophils (%) (Auto) 0.5 % (0.0-2.0) Prothrombin Time 10.0 SEC (9.30-11.50) Prothromb Time International Ratio 1.0 (0.9-1.1) Sodium Level 139 MMOL/L (136-145) Potassium Level 4.0 MMOL/L (3.5-5.1) Chloride Level 105 MMOL/L (98-107) Carbon Dioxide Level 26 MMOL/L (21-32) Anion Gap 8 mmol/L (5-15) Blood Urea Nitrogen 7 mg/dL (7-18) Creatinine 1.1 MG/DL (0.55-1.30) Estimat Glomerular Filtration Rate > 60 mL/min (>60) Glucose Level 140 MG/DL (74-106) H Calcium Level 8.5 MG/DL (8.5-10.1) Total Bilirubin 0.3 MG/DL (0.2-1.0) Aspartate Amino Transf (AST/SGOT) 130 U/L (15-37) H Alanine Aminotransferase (ALT/SGPT) 193 U/L (12-78) H Alkaline Phosphatase 131 U/L (46-116) H Total Protein 7.8 G/DL (6.4-8.2) Albumin 3.1 G/DL (3.4-5.0) L Globulin 4.7 g/dL Albumin/Globulin Ratio 0.7 (1.0-2.7) L Current Medications Medications (Trade) Dose Ordered Sig/Leeroy Route PRN Reason Start Time Stop Time Status Last Admin Dose Admin Acetaminophen (Tylenol) 650 mg Q4H PRN ORAL T>100.5 09/10/17 20:15 10/10/17 00:14 Albuterol/ Ipratropium (Albuterol/ Ipratropium) 3 ml Q4H PRN HHN Shortness of Breath 09/10/17 21:00 09/15/17 20:59 Amlodipine Besylate (Norvasc) 10 mg DAILY ORAL 09/11/17 09:00 10/10/17 08:59 09/14/17 09:26 Ampicillin Sodium/ Sulbactam Sodium 3 gm/Dextrose 110 ml @ 220 mls/hr Q6HR IVPB 09/11/17 00:00 09/17/17 17:59 09/14/17 13:16 Carvedilol (Coreg) 6.25 mg EVERY 12 HOURS ORAL 09/10/17 21:00 10/10/17 08:59 09/14/17 09:26 Dextrose (Dextrose 50%) 25 ml PRN IV Hypoglycemia 09/10/17 20:30 10/10/17 20:29 Dextrose (Dextrose 50%) 50 ml PRN IV hypoglycemia 09/10/17 20:30 10/10/17 20:29 Dextrose/ Electrolytes 1,000 ml @ 75 mls/hr [id number] IV 09/13/17 16:00 10/13/17 15:59 09/14/17 06:00 Gabapentin (Neurontin) 300 mg THREE TIMES A DAY ORAL 09/11/17 09:00 10/10/17 08:59 09/14/17 13:16 Heparin Sodium (Porcine) (Heparin 5000 units/ml) 5,000 units EVERY 12 HOURS SUBQ 09/10/17 21:00 10/10/17 08:59 09/13/17 09:08 Insulin Aspart (NovoLOG) BEFORE MEALS AND HS SUBQ 09/10/17 21:30 10/10/17 21:29 09/13/17 06:03 Ioversol (Isovue) 100 ml NOW PRN INJ Radiology Procedure 09/11/17 18:15 Lisinopril (Prinivil) 40 mg DAILY ORAL 09/11/17 09:00 10/11/17 08:59 09/14/17 09:26 Morphine Sulfate (Morphine Sulfate) 2 mg Q4H PRN IVP Moderate Pain (Pain Scale 4-6) 09/10/17 21:00 09/17/17 20:59 Nitroglycerin (Ntg) 0.4 mg Q5M PRN SL Prn Chest Pain 09/10/17 20:15 10/10/17 00:14 Ondansetron HCl (Zofran) 4 mg Q6H PRN IVP Nausea & Vomiting 09/10/17 21:00 10/10/17 20:59 Polyethylene Glycol (Miralax) 17 gm DAILYPRN PRN ORAL Constipation 09/11/17 21:00 10/10/17 20:59 09/12/17 16:21 Temazepam (Restoril) 15 mg HSPRN PRN ORAL Insomnia 09/10/17 21:00 09/17/17 20:59 Citlaly Wang M.D. Sep 14, 2017 14:37
--- NOTE | 2017-09-14 15:49 | Diagnostic Imaging Report ---
Indication: Choledocholithiasis Technique: Multiple intraoperative fluoroscopic images from ERCP Endoscopist: Uriel Total fluoroscopy time: 4.4 minutes Total fluoroscopy dose: 583 dGy*cm2 Findings: Procedural fluoroscopic images from ERCP submitted for archival the PACS. There is an endoscope. There is contrast opacification of dilated common bile duct and dilated intrahepatic ducts. There is wire cannulation of the common bile duct and intrahepatic ducts. Subsequent images demonstrate the ventral placement of a CBD stent. Please see endoscopy report. IMPRESSION: Fluoroscopic images from ERCP. Please see endoscopy report.
--- NOTE | 2017-09-14 16:00 | Procedure Note ---
DATE OF PROCEDURE: 09/14/2017 SURGEON: Genaro Trevino M.D. PROCEDURE: ERCP with sphincterotomy, stone removal, stent placement, biopsy. ANESTHESIA: Per Dr. Laboy. INSTRUMENT: Olympus adult flexible ERCP scope. INDICATION: Choledocholithiasis. The procedure, risks, benefits, and possible consequences, including hemorrhage, aspiration, perforation and infection, and alternative treatments, were explained to the patient/legal guardian by Dr. Genaro Trevino and the patient/legal guardian understood and accepted these risks. DESCRIPTION OF PROCEDURE: After informed consent was obtained and the patient was adequately sedated, ERCP scope was advanced from mouth into the second portion of duodenum. Ampulla was seen at about 11 o'clock position. Ampulla was deformed, enlarged. There is a questionable infiltrating mass in the ampulla. Using a sphincterotome, we tried to cannulate, which was not successful. We used a needle knife, it was not very successful. Then, we repositioned and actually moved the sphincterotome up closer to the duodenal wall and able to cannulate at that point, without any difficulty. Initial cholangiogram showed dilated common bile duct to about 14 mm. There was 1 filling defect in the distal common bile duct suggestive of a stone. Then, over a guidewire, 80% of sphincterotomy was performed. We could not get a good angle to do extension of sphincterotomy. It seems that no matter how many times he moved the sphincterotome and position could not get a safe position to do a sphincterotomy more than 80%. At this time, we used a balloon to sweep the duct multiple times and remove 1 small stone. The drainage was not adequate so we decided to put a stent in the a 10-Spanish 5 cm stent was successfully placed in the common bile duct. At that point, the duct was draining pretty well. Then, we used the biopsy forceps to biopsy the ampulla. The patient tolerated the procedure very well without any complication. Based on findings, choledocholithiasis, possible ampullary mass, status post ERCP stone removal and stent placement on biopsy. RECOMMENDATIONS: Repeat labs for tomorrow. Follow biopsy results. The patient most probably will benefit from outpatient MRI and followup. If the biopsies are nondiagnostic. Genaro Yamileth Trevino DR: DOLLY JOB#: [id number] CC:
[2017-09-15] VITALS: BP 127/74
[2017-09-15 04:00] VITALS: BP 111/67
[2017-09-15] MEDS: Ampicillin/Sulbactam Sod 3 GM in D5W 110 ML IVPB SCH ×2 (05:02→12:33)
[2017-09-15] MEDS: NovoLOG Insulin Flexpen SUBQ SCH ×2 (05:31→11:30)
[2017-09-15 08:00] VITALS: BP 114/67
[2017-09-15 08:29] LABS: BASOPHILS % (AUTO) 0.6 % (0.0-2.0); EOSINOPHILS % (AUTO) 4.7 % (0.0-3.0); HEMOGLOBIN 11.6 G/DL (14.2-18.0); LYMPHOCYTES % (AUTO) 42.7 % (20.0-45.0); MEAN CORPUSCULAR VOLUME 80 FL (80-99); MONOCYTES % (AUTO) 8.9 % (1.0-10.0); PLATELET COUNT 244 K/UL (150-450); RED BLOOD COUNT 4.38 M/UL (4.70-6.10); RED CELL DISTRIBUTION WIDTH 13.9 % (11.6-14.8); WHITE BLOOD COUNT 4.9 K/UL (4.8-10.8)
[2017-09-15] MEDS: Lisinopril 20mg tab ORAL SCH (08:40)
[2017-09-15] MEDS: Carvedilol 6.25mg Tab ORAL SCH (08:40)
[2017-09-15] MEDS: D5 1/2NS w/KCl 20mEq 1,000 ML IV SCH (08:42)
[2017-09-15] MEDS: Heparin 5000 units/ml inj SUBQ SCH (08:42)
[2017-09-15 08:45] LABS: ALANINE AMINOTRANSFERASE 162 U/L (12-78); ALBUMIN 3.1 G/DL (3.4-5.0); ALBUMIN/GLOBULIN RATIO 0.7 (1.0-2.7); ALKALINE PHOSPHATASE 117 U/L (46-116); ANION GAP 7 mmol/L (5-15); ASPARTATE AMINO TRANSFERASE 65 U/L (15-37); BILIRUBIN,TOTAL 0.3 MG/DL (0.2-1.0); BLOOD UREA NITROGEN 4 mg/dL (7-18); CALCIUM 8.5 MG/DL (8.5-10.1); CARBON DIOXIDE 29 MMOL/L (21-32); CHLORIDE 105 MMOL/L (98-107); CREATININE 1.1 MG/DL (0.55-1.30); POTASSIUM 3.9 MMOL/L (3.5-5.1); SODIUM 141 MMOL/L (136-145)
[2017-09-15 12:00] VITALS: BP 119/67
--- NOTE | 2017-09-15 13:15 | Infectious Diseases Prog Note ---
Assessment/Plan Assessment/Plan Sepsis, SP- 2ry to likely cholangitis (+choledocholithiasis, fever, elevated LFTs, RUQ pain) and sinusitis- -s/p ERCp 09/14: ERCP with sphincterotomy, stone removal, stent placement, biopsy. -CXR no acute process -u/a neg; ucx neg -Bcx NTD -CT abd/p: Choledocholithiasis with biliary ductal dilatation. This is discrepant with the earlier ultrasound findings. Current CT study is more definitive. Cholelithiasis. Discrepant with the earlier ultrasound findings. Current CT study is more definitive. Liver lesions in question appear cystic and require no further evaluation. Each measures about 1.2 cm and noted in the left lobe. Other incidental findings including prostate hypertrophy, thickening of the wall the urinary bladder, normal appendix, atherosclerotic disease. -CT head: Old left basal ganglia lacunar infarct. Negative for acute intracranial bleed or mass effect. Minimal sinus disease -influenza sc neg -Abd US: Negative for gallstones or dilated ducts. Liver demonstrates diffusely increased echogenicity, consistent with diffuse hepatocellular disease , most likely fatty change. 2 left lobe liver lesions. While cystic-appearing grayscale imaging, technologist reports presence of Doppler flow within them. Further evaluation with multiphasic contrast CT is therefore recommended. Note suboptimal visualization of the pancreas Fever; resolved -no leukocytosis Elevated LFTs 2ry to cholangitis/choledocholithiasis , improving, now worsened after ERCP US : 2 left lobe liver lesions. -acute hep panel neg -Hep A immune, hep B not immune -HIV sc neg; HIV VL not detected CVA w/ residual R side hemiplegia [facility] resident Plan: -Continue Unasyn # 6 /10 for sinusitis and cholangitis; ok to discharge on PO Augmentin 875/125mg bid to complete course. - 09/12 SP IV Vancomycin # 3 -09/10 SP Cefepime #1 -09/09 SP Unasyn x1 -f/u Hiv VL -f/u cx -Monitor CBC/BMP, temperatures -aspiration precautions Subjective Allergies: Coded Allergies: No Known Allergies (Unverified , 09/09/17) Subjective afebrile no leukocytosis Bcx NTD Objective Vital Signs Last 24 Hour Vital Signs Date Time Temp Pulse Resp B/P (MAP) Pulse Ox O2 Delivery O2 Flow Rate FiO2 09/15/17 08:40 114/76 5/1/18 08:40 65 114/76 09/15/17 08:40 65 114/76 09/15/17 08:00 97.4 66 19 114/67 96 Room Air 97.4 09/15/17 04:00 95.9 58 18 111/67 98 95.9 09/15/17 00:00 97.5 65 18 127/74 95 97.5 09/14/17 21:30 72 18 Room Air 21 09/14/17 20:15 68 108/63 09/14/17 20:00 98.2 18 108/74 100 98.2 09/14/17 16:00 97.5 78 20 112/66 96 Nasal Cannula 3.0 97.5 Height (Feet): 5 Height (Inches): 6.00 Weight (Pounds): 137 Objective General Appearance: WD/WN Lines, tubes and drains: peripheral HEENT: normocephalic, atraumatic Neck: non-tender, normal alignment Respiratory/Chest: chest wall non-tender, lungs clear Cardiovascular/Chest: normal peripheral pulses, normal rate Abdomen: normal bowel sounds, RUQ TTP Genitourinary/Rectal: normal genital exam, normal rectal exam Extremities: normal range of motion, non-tender Skin Exam: warm/dry Laboratory Tests Test 09/15/17 06:35 White Blood Count 4.9 K/UL (4.8-10.8) Red Blood Count 4.38 M/UL (4.70-6.10) L Hemoglobin 11.6 G/DL (14.2-18.0) L Hematocrit 35.0 % (42.0-52.0) L Mean Corpuscular Volume 80 FL (80-99) Mean Corpuscular Hemoglobin 26.6 PG (27.0-31.0) L Mean Corpuscular Hemoglobin Concent 33.2 G/DL (32.0-36.0) Red Cell Distribution Width 13.9 % (11.6-14.8) Platelet Count 244 K/UL (150-450) Mean Platelet Volume 5.8 FL (6.5-10.1) L Neutrophils (%) (Auto) 43.0 % (45.0-75.0) L Lymphocytes (%) (Auto) 42.7 % (20.0-45.0) Monocytes (%) (Auto) 8.9 % (1.0-10.0) Eosinophils (%) (Auto) 4.7 % (0.0-3.0) H Basophils (%) (Auto) 0.6 % (0.0-2.0) Sodium Level 141 MMOL/L (136-145) Potassium Level 3.9 MMOL/L (3.5-5.1) Chloride Level 105 MMOL/L (98-107) Carbon Dioxide Level 29 MMOL/L (21-32) Anion Gap 7 mmol/L (5-15) Blood Urea Nitrogen 4 mg/dL (7-18) L Creatinine 1.1 MG/DL (0.55-1.30) Estimat Glomerular Filtration Rate > 60 mL/min (>60) Glucose Level 136 MG/DL (74-106) H Calcium Level 8.5 MG/DL (8.5-10.1) Total Bilirubin 0.3 MG/DL (0.2-1.0) Aspartate Amino Transf (AST/SGOT) 65 U/L (15-37) H Alanine Aminotransferase (ALT/SGPT) 162 U/L (12-78) H Alkaline Phosphatase 117 U/L (46-116) H Total Protein 7.5 G/DL (6.4-8.2) Albumin 3.1 G/DL (3.4-5.0) L Globulin 4.4 g/dL Albumin/Globulin Ratio 0.7 (1.0-2.7) L Current Medications Medications (Trade) Dose Ordered Sig/Leeroy Route PRN Reason Start Time Stop Time Status Last Admin Dose Admin Acetaminophen (Tylenol) 650 mg Q4H PRN ORAL T>100.5 09/10/17 20:15 10/10/17 00:14 09/15/17 00:16 Albuterol/ Ipratropium (Albuterol/ Ipratropium) 3 ml Q4H PRN HHN Shortness of Breath 09/10/17 21:00 09/15/17 20:59 Amlodipine Besylate (Norvasc) 10 mg DAILY ORAL 09/11/17 09:00 10/10/17 08:59 09/15/17 08:40 Ampicillin Sodium/ Sulbactam Sodium 3 gm/Dextrose 110 ml @ 220 mls/hr Q6HR IVPB 09/11/17 00:00 09/17/17 17:59 09/15/17 12:33 Carvedilol (Coreg) 6.25 mg EVERY 12 HOURS ORAL 09/10/17 21:00 10/10/17 08:59 09/15/17 08:40 Dextrose (Dextrose 50%) 25 ml PRN IV Hypoglycemia 09/10/17 20:30 10/10/17 20:29 Dextrose (Dextrose 50%) 50 ml PRN IV hypoglycemia 09/10/17 20:30 10/10/17 20:29 Dextrose/ Electrolytes 1,000 ml @ 75 mls/hr [id number] IV 09/13/17 16:00 10/13/17 15:59 09/15/17 08:42 Gabapentin (Neurontin) 300 mg THREE TIMES A DAY ORAL 09/11/17 09:00 10/10/17 08:59 09/15/17 12:32 Heparin Sodium (Porcine) (Heparin 5000 units/ml) 5,000 units EVERY 12 HOURS SUBQ 09/10/17 21:00 10/10/17 08:59 09/15/17 08:42 Insulin Aspart (NovoLOG) BEFORE MEALS AND HS SUBQ 09/10/17 21:30 10/10/17 21:29 09/13/17 06:03 Ioversol (Isovue) 100 ml NOW PRN INJ Radiology Procedure 09/11/17 18:15 Lisinopril (Prinivil) 40 mg DAILY ORAL 09/11/17 09:00 10/11/17 08:59 09/15/17 08:40 Morphine Sulfate (Morphine Sulfate) 2 mg Q4H PRN IVP Moderate Pain (Pain Scale 4-6) 09/10/17 21:00 09/17/17 20:59 Nitroglycerin (Ntg) 0.4 mg Q5M PRN SL Prn Chest Pain 09/10/17 20:15 10/10/17 00:14 Ondansetron HCl (Zofran) 4 mg Q6H PRN IVP Nausea & Vomiting 09/10/17 21:00 10/10/17 20:59 Polyethylene Glycol (Miralax) 17 gm DAILYPRN PRN ORAL Constipation 09/11/17 21:00 10/10/17 20:59 09/12/17 16:21 Temazepam (Restoril) 15 mg HSPRN PRN ORAL Insomnia 09/10/17 21:00 09/17/17 20:59 Citlaly Wang M.D. September 15, 2017 13:15
--- NOTE | 2017-09-15 13:19 | Pulmonology Progress Note ---
Assessment/Plan Problems: (1) Fever (2) Diabetes mellitus (3) Hypertension (4) History of CVA (cerebrovascular accident) Assessment/Plan biopsy of ampulla pending afebrile now all cultures negative continue empiric abx treatment, on Ampicillin eating well pt/ot dvt prophylaxis. Subjective ROS Limited/Unobtainable: No Interval Events: eating better Constitutional: Reports: no symptoms HEENT: Repors: no symptoms Allergies: Coded Allergies: No Known Allergies (Unverified , 09/09/17) Objective Last 24 Hour Vital Signs Date Time Temp Pulse Resp B/P (MAP) Pulse Ox O2 Delivery O2 Flow Rate FiO2 09/15/17 08:40 114/76 09/15/17 08:40 65 114/76 09/15/17 08:40 65 114/76 09/15/17 08:00 97.4 66 19 114/67 96 Room Air 97.4 09/15/17 04:00 95.9 58 18 111/67 98 95.9 09/15/17 00:00 97.5 65 18 127/74 95 97.5 09/14/17 21:30 72 18 Room Air 21 09/14/17 20:15 68 108/63 09/14/17 20:00 98.2 18 108/74 100 98.2 09/14/17 16:00 97.5 78 20 112/66 96 Nasal Cannula 3.0 97.5 Intake and Output 09/14/17 09/15/17 19:00 07:00 Intake Total 1250 ml 1425 ml Output Total 1880 ml Balance 1250 ml -455 ml Intake Oral 600 ml 420 ml IV Total 650 ml 1005 ml Output Urine Total 1880 ml # Voids 4 Objective General Appearance: WD/WN HEENT: normocephalic, atraumatic Respiratory/Chest: chest wall non-tender, lungs clear Cardiovascular: normal peripheral pulses, normal rate, regular rhythm Abdomen: normal bowel sounds, soft, non tender, no organomegaly, non distended Extremities: no cyanosis, no clubbing, no edema Skin: no rash, no lesions 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 Laboratory Tests 09/15/17 06:35: White Blood Count 4.9, Red Blood Count 4.38L, Hemoglobin 11.6L, Hematocrit 35.0L , Mean Corpuscular Volume 80, Mean Corpuscular Hemoglobin 26.6L, Mean Corpuscular Hemoglobin Concent 33.2, Red Cell Distribution Width 13.9, Platelet Count 244, Mean Platelet Volume 5.8L, Neutrophils (%) (Auto) 43.0L, Lymphocytes (%) (Auto) 42.7, Monocytes (%) (Auto) 8.9, Eosinophils (%) (Auto) 4.7H, Basophils (%) (Auto) 0.6, Sodium Level 141, Potassium Level 3.9, Chloride Level 105, Carbon Dioxide Level 29, Anion Gap 7, Blood Urea Nitrogen 4L, Creatinine 1.1, Estimat Glomerular Filtration Rate > 60, Glucose Level 136H, Calcium Level 8.5, Total Bilirubin 0.3, Aspartate Amino Transf (AST/SGOT) 65H, Alanine Aminotransferase (ALT/SGPT) 162H, Alkaline Phosphatase 117H, Total Protein 7.5, Albumin 3.1L, Globulin 4.4, Albumin/Globulin Ratio 0.7L Current Medications Medications (Trade) Dose Ordered Sig/Leeroy Route PRN Reason Start Time Stop Time Status Last Admin Dose Admin Acetaminophen (Tylenol) 650 mg Q4H PRN ORAL T>100.5 09/10/17 20:15 10/10/17 00:14 09/15/17 00:16 Albuterol/ Ipratropium (Albuterol/ Ipratropium) 3 ml Q4H PRN HHN Shortness of Breath 09/10/17 21:00 09/15/17 20:59 Amlodipine Besylate (Norvasc) 10 mg DAILY ORAL 09/11/17 09:00 10/10/17 08:59 09/15/17 08:40 Ampicillin Sodium/ Sulbactam Sodium 3 gm/Dextrose 110 ml @ 220 mls/hr Q6HR IVPB 09/11/17 00:00 09/17/17 17:59 09/15/17 12:33 Carvedilol (Coreg) 6.25 mg EVERY 12 HOURS ORAL 09/10/17 21:00 10/10/17 08:59 09/15/17 08:40 Dextrose (Dextrose 50%) 25 ml PRN IV Hypoglycemia 09/10/17 20:30 10/10/17 20:29 Dextrose (Dextrose 50%) 50 ml PRN IV hypoglycemia 09/10/17 20:30 10/10/17 20:29 Dextrose/ Electrolytes 1,000 ml @ 75 mls/hr [id number] IV 09/13/17 16:00 10/13/17 15:59 09/15/17 08:42 Gabapentin (Neurontin) 300 mg THREE TIMES A DAY ORAL 09/11/17 09:00 10/10/17 08:59 09/15/17 12:32 Heparin Sodium (Porcine) (Heparin 5000 units/ml) 5,000 units EVERY 12 HOURS SUBQ 09/10/17 21:00 10/10/17 08:59 09/15/17 08:42 Insulin Aspart (NovoLOG) BEFORE MEALS AND HS SUBQ 09/10/17 21:30 10/10/17 21:29 09/13/17 06:03 Ioversol (Isovue) 100 ml NOW PRN INJ Radiology Procedure 09/11/17 18:15 Lisinopril (Prinivil) 40 mg DAILY ORAL 09/11/17 09:00 10/11/17 08:59 09/15/17 08:40 Morphine Sulfate (Morphine Sulfate) 2 mg Q4H PRN IVP Moderate Pain (Pain Scale 4-6) 09/10/17 21:00 09/17/17 20:59 Nitroglycerin (Ntg) 0.4 mg Q5M PRN SL Prn Chest Pain 09/10/17 20:15 10/10/17 00:14 Ondansetron HCl (Zofran) 4 mg Q6H PRN IVP Nausea & Vomiting 09/10/17 21:00 10/10/17 20:59 Polyethylene Glycol (Miralax) 17 gm DAILYPRN PRN ORAL Constipation 09/11/17 21:00 10/10/17 20:59 09/12/17 16:21 Temazepam (Restoril) 15 mg HSPRN PRN ORAL Insomnia 09/10/17 21:00 09/17/17 20:59 Loco Aguilar MD September 15, 2017 13:19
--- NOTE | 2017-09-15 14:21 | General Progress Note ---
Assessment/Plan Problem List: (1) Hypertension ICD Codes: I10 - Essential (primary) hypertension SNOMED: 17406542 (2) Diabetes mellitus ICD Codes: E11.9 - Type 2 diabetes mellitus without complications SNOMED: 35071223 (3) Fever ICD Codes: R50.9 - Fever, unspecified SNOMED: 257480308 (4) Anemia ICD Codes: D64.9 - Anemia, unspecified SNOMED: 713406159 (5) Abnormal LFTs ICD Codes: R94.5 - Abnormal results of liver function studies SNOMED: 665778869 Status: stable, progressing, tolerating diet Assessment/Plan ot pt diet abx per id dc to snf Subjective Constitutional: Reports: weakness Allergies: Coded Allergies: No Known Allergies (Unverified , 09/09/17) All Systems: reviewed and negative except above Subjective calm in bed sleepy Objective Last 24 Hour Vital Signs Date Time Temp Pulse Resp B/P (MAP) Pulse Ox O2 Delivery O2 Flow Rate FiO2 09/15/17 13:25 75 18 Room Air 21 09/15/17 08:40 114/76 09/15/17 08:40 65 114/76 09/15/17 08:40 65 114/76 09/15/17 08:00 97.4 66 19 114/67 96 Room Air 97.4 09/15/17 04:00 95.9 58 18 111/67 98 95.9 09/15/17 00:00 97.5 65 18 127/74 95 97.5 09/14/17 21:30 72 18 Room Air 21 09/14/17 20:15 68 108/63 09/14/17 20:00 98.2 18 108/74 100 98.2 09/14/17 16:00 97.5 78 20 112/66 96 Nasal Cannula 3.0 97.5 Intake and Output 09/14/17 09/15/17 19:00 07:00 Intake Total 1250 ml 1425 ml Output Total 1880 ml Balance 1250 ml -455 ml Intake Oral 600 ml 420 ml IV Total 650 ml 1005 ml Output Urine Total 1880 ml # Voids 4 Laboratory Tests 09/15/17 06:35: White Blood Count 4.9, Red Blood Count 4.38L, Hemoglobin 11.6L, Hematocrit 35.0L , Mean Corpuscular Volume 80, Mean Corpuscular Hemoglobin 26.6L, Mean Corpuscular Hemoglobin Concent 33.2, Red Cell Distribution Width 13.9, Platelet Count 244, Mean Platelet Volume 5.8L, Neutrophils (%) (Auto) 43.0L, Lymphocytes (%) (Auto) 42.7, Monocytes (%) (Auto) 8.9, Eosinophils (%) (Auto) 4.7H, Basophils (%) (Auto) 0.6, Sodium Level 141, Potassium Level 3.9, Chloride Level 105, Carbon Dioxide Level 29, Anion Gap 7, Blood Urea Nitrogen 4L, Creatinine 1.1, Estimat Glomerular Filtration Rate > 60, Glucose Level 136H, Calcium Level 8.5, Total Bilirubin 0.3, Aspartate Amino Transf (AST/SGOT) 65H, Alanine Aminotransferase (ALT/SGPT) 162H, Alkaline Phosphatase 117H, Total Protein 7.5, Albumin 3.1L, Globulin 4.4, Albumin/Globulin Ratio 0.7L Height (Feet): 5 Height (Inches): 6.00 Weight (Pounds): 137 General Appearance: lethargic EENT: normal ENT inspection Neck: normal alignment Cardiovascular: normal peripheral pulses, normal rate, regular rhythm Respiratory/Chest: chest wall non-tender, lungs clear, normal breath sounds Abdomen: normal bowel sounds, non tender, soft Extremities: normal inspection Edema: no edema noted Arm (L), no edema noted Arm (R), no edema noted Leg (L), no edema noted Leg (R), no edema noted Pedal (L), no edema noted Pedal (R), no edema noted Generalized Neurologic: motor weakness Skin: normal pigmentation, warm/dry CALVIN MARTELL September 15, 2017 14:21
--- NOTE | 2017-09-15 14:41 | GI Progress Note ---
Assessment/Plan Problems: (1) Abnormal LFTs ICD Codes: R94.5 - Abnormal results of liver function studies SNOMED: 715889131 (2) Abdominal pain ICD Codes: R10.9 - Unspecified abdominal pain SNOMED: 07115240 (3) Anemia ICD Codes: D64.9 - Anemia, unspecified SNOMED: 930500805 (4) History of CVA (cerebrovascular accident) ICD Codes: Z86.73 - Personal history of transient ischemic attack (TIA), and cerebral infarction without residual deficits SNOMED: 467281422 (5) Diabetes mellitus ICD Codes: E11.9 - Type 2 diabetes mellitus without complications SNOMED: 67198324 (6) Electrolyte imbalance ICD Codes: E87.8 - Other disorders of electrolyte and fluid balance, not elsewhere classified SNOMED: 555644533 (7) Hypertension ICD Codes: I10 - Essential (primary) hypertension SNOMED: 92688615 Status: stable Status Narrative Discussed with Dr. Trevino. Assessment/Plan okay for DC per GI standpoint s/p ERCP >> ampullary mass, fu biopsy results fu labs, hepatitis panel fu as outpatient Subjective Gastrointestinal/Abdominal: Reports: no symptoms Objective Last 24 Hour Vital Signs Date Time Temp Pulse Resp B/P (MAP) Pulse Ox O2 Delivery O2 Flow Rate FiO2 09/15/17 13:25 75 18 Room Air 21 09/15/17 12:00 97.6 19 119/67 97 Room Air 97.6 09/15/17 08:40 114/76 09/15/17 08:40 65 114/76 09/15/17 08:40 65 114/76 09/15/17 08:00 97.4 66 19 114/67 96 Room Air 97.4 09/15/17 04:00 95.9 58 18 111/67 98 95.9 09/15/17 00:00 97.5 65 18 127/74 95 97.5 09/14/17 21:30 72 18 Room Air 21 09/14/17 20:15 68 108/63 09/14/17 20:00 98.2 18 108/74 100 98.2 09/14/17 16:00 97.5 78 20 112/66 96 Nasal Cannula 3.0 97.5 Intake and Output 09/14/17 09/15/17 19:00 07:00 Intake Total 1250 ml 1425 ml Output Total 1880 ml Balance 1250 ml -455 ml Intake Oral 600 ml 420 ml IV Total 650 ml 1005 ml Output Urine Total 1880 ml # Voids 4 Laboratory Tests Test 09/15/17 06:35 White Blood Count 4.9 K/UL (4.8-10.8) Red Blood Count 4.38 M/UL (4.70-6.10) L Hemoglobin 11.6 G/DL (14.2-18.0) L Hematocrit 35.0 % (42.0-52.0) L Mean Corpuscular Volume 80 FL (80-99) Mean Corpuscular Hemoglobin 26.6 PG (27.0-31.0) L Mean Corpuscular Hemoglobin Concent 33.2 G/DL (32.0-36.0) Red Cell Distribution Width 13.9 % (11.6-14.8) Platelet Count 244 K/UL (150-450) Mean Platelet Volume 5.8 FL (6.5-10.1) L Neutrophils (%) (Auto) 43.0 % (45.0-75.0) L Lymphocytes (%) (Auto) 42.7 % (20.0-45.0) Monocytes (%) (Auto) 8.9 % (1.0-10.0) Eosinophils (%) (Auto) 4.7 % (0.0-3.0) H Basophils (%) (Auto) 0.6 % (0.0-2.0) Sodium Level 141 MMOL/L (136-145) Potassium Level 3.9 MMOL/L (3.5-5.1) Chloride Level 105 MMOL/L (98-107) Carbon Dioxide Level 29 MMOL/L (21-32) Anion Gap 7 mmol/L (5-15) Blood Urea Nitrogen 4 mg/dL (7-18) L Creatinine 1.1 MG/DL (0.55-1.30) Estimat Glomerular Filtration Rate > 60 mL/min (>60) Glucose Level 136 MG/DL (74-106) H Calcium Level 8.5 MG/DL (8.5-10.1) Total Bilirubin 0.3 MG/DL (0.2-1.0) Aspartate Amino Transf (AST/SGOT) 65 U/L (15-37) H Alanine Aminotransferase (ALT/SGPT) 162 U/L (12-78) H Alkaline Phosphatase 117 U/L (46-116) H Total Protein 7.5 G/DL (6.4-8.2) Albumin 3.1 G/DL (3.4-5.0) L Globulin 4.4 g/dL Albumin/Globulin Ratio 0.7 (1.0-2.7) L Height (Feet): 5 Height (Inches): 6.00 Weight (Pounds): 137 General Appearance: WD/WN, no apparent distress, alert Cardiovascular: normal rate Respiratory/Chest: normal breath sounds, no respiratory distress Abdominal Exam: normal bowel sounds, non tender, soft Extremities: non-tender Maya Beth N.P. September 15, 2017 14:41
[2017-09-15] MEDS ORDERED: COREG6.25 MG ORAL ×2 (15:46→15:54)
[2017-09-15] MEDS ORDERED: NOVOLOG100 UNIT/3 SUBQ (15:48)
[2017-09-15] MEDS ORDERED: AUGMENTIN 875-1 EAC1 ORAL (15:57)
[2017-09-15 16:00] VITALS: BP 130/79
--- NOTE | 2017-09-17 10:49 | Discharge Summary ---
Discharge Summary Discharge Summary Discharge Summary DATE OF ADMISSION: 09/09/2017 DATE OF DISCHARGE: 09/15/2017 CONSULTANTS: Dr. Loco Watson BRIEF HOSPITAL COURSE: Patient is a 62-year-old male from [facility], presented with fever, weakness and headache. He has medical history significant for right -sided CVA and hypertension. He was noted to have fever at the [facility]. Temperature was 104 at the facility. He also reported increased pain to the right side of the face. He denied any vomiting, denied any new weakness, he had right-sided facial throbbing. On evaluation at ED, he was noted to be febrile, temperature was 101.8. He was given antipyretics and IV fluids. Head CT showed no evidence of acute hemorrhage or CVA, with minimal sinus disease. Chest x-ray showed no acute process. Blood work showed elevated liver function tests. Urinalysis was negative. He was admitted for evaluation of fever. He was pancultured and was started on vancomycin, cefepime was switched to Unasyn for sinusitis and possible biliary disease. Liver function tests were abnormal. Abdominal ultrasound was negative for gallstones or dilated ducts. Liver showed increased echogenicity consistent with diffuse hepatocellular change most likely fatty change. There were 2 left lobe liver lesions, cystic appearing. Abdominal and pelvic CT showed choledocholithiasis with biliary ductal dilatation, discrepant with the earlier ultrasound findings. Cholelithiasis, discrepant with earlier ultrasound findings. Liver lesion appears cystic and required no further evaluation. HIV screen was negative. HIV viral load not detected. Hepatitis panel was negative. Patient is A immune, however, not immune on hepatitis B. On 2017, he underwent ERCP with sphincterotomy, stone removal, and stent placement. Cultures were negative. Vancomycin was discontinued. He was given PT and OT. He was eating well. He was then cleared for discharge back to [facility] to continue oral antibiotics. FINAL DIAGNOSES: Sepsis, secondary to likely cholangitis and sinusitis. Elevated liver transaminases secondary to cholangitis and choledocholithiasis. CVA with right-sided hemiplegia [facility] resident Hypertension Diabetes mellitus Anemia DISPOSITION: Patient was discharged to [facility]. DISCHARGE MEDICATIONS: Refer to Discharge Medication List. Continue with Augmentin for 4 more days. I have been assigned to dictate discharge summary on this account, and I was not involved in the patient's management. Rowena Lund NP September 17, 2017 10:49
--- NOTE | 2017-09-18 15:28 | Cardiology Report ---
APPROVED REPORT EKG Measurement Heart [id number] Normal sinus rhythm T wave abnormality, consider lateral ischemia Abnormal ECG
--- NOTE | 2017-10-07 10:49 | Physician Query ---
--------- THIS DOCUMENT IS A PERMANENT PART OF THE MEDICAL RECORD --------- PLEASE COMPLETE THE QUESTION BEFORE SIGNING Dear Dr. 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 Question asked do not imply a particular answer is desired/expected Clinical Documentation States: "Sepsis" documented in PROG NOTES,DC SUMMARY H&P STATES: 1.FEVER 2. Weakness. 3. Headache. 4. Anemia. 5. Elevated liver function tests. 6. Diabetes. 7. Hypertension. PLAN: 1. Antibiotics per Infectious Disease. 2. Fever control. DISCHARGE SUMMARY STATES: He was admitted for evaluation of fever. He was pancultured and was started on vancomycin, cefepime was switched to Unasyn for sinusitis and possible biliary disease. Liver function tests were abnormal. Abdominal ultrasound was negative for gallstones or dilated ducts. Liver showed increased echogenicity consistent with diffuse hepatocellular change most likely fatty change. There were 2 left lobe liver lesions, cystic appearing. Abdominal and pelvic CT showed choledocholithiasis with biliary ductal dilatation, discrepant with the earlier ultrasound findings. Cholelithiasis, discrepant with earlier ultrasound findings. Liver lesion appears cystic and required no further evaluation. HIV screen was negative. HIV viral load not detected. Hepatitis panel was negative. Patient is A immune, however, not immune on hepatitis B. On 09/14/2017, he underwent ERCP with sphincterotomy, stone removal, and stent placement. Cultures were negative. Vancomycin was discontinued. He was given PT and OT. He was eating well. He was then cleared for discharge back to senior living to continue oral antibiotics. FINAL DIAGNOSES: Sepsis, secondary to likely cholangitis and sinusitis. Clinical Findings Show: [X] Fever (temp >38.3 degrees C or 100.4 degrees F) WBC: 09/09/17 -10.0 WBC: 09/11/17 - 6.8 WBC - 09/12/17 5.3 WBC 09/14/17 - 4.1 L WBC 09/15/17 - 4.9 1. Was SEPSIS present on admission? [ ] Yes [ ] No [ ] Clinically undeterminable CALVIN MARTELL D.O. DATE & TIME MTDD
== END 2017-09-15 17:40 | DRG 720 ==
LOC: EDBD 17:39 → EMR 18:24 → 2E 21:21 → EDBEDREQ 21:28 → 4E 09-10 20:11
PROC: 0FC98ZZ Extirpation of Matter from Common Bile Duct, Via Natural or Artificial Opening Endoscopic (ICD-10-PCS; principal; 2017-09-14 11:09)
PROC: 0F798DZ Dilation of Common Bile Duct with Intraluminal Device, Via Natural or Artificial Opening Endoscopic (ICD-10-PCS; 2017-09-14 11:09)
PROC: BF111ZZ Fluoroscopy of Biliary and Pancreatic Ducts using Low Osmolar Contrast (ICD-10-PCS; 2017-09-14 11:09)
PROC: 0FBC8ZX Excision of Ampulla of Vater, Via Natural or Artificial Opening Endoscopic, Diagnostic (ICD-10-PCS; 2017-09-14 11:09)
DX: A41.9 Sepsis, unspecified organism (principal); K80.30 Calculus of bile duct with cholangitis, unspecified, without obstruction; I69.351 Hemiplegia and hemiparesis following cerebral infarction affecting right dominant side; K76.0 Fatty (change of) liver, not elsewhere classified; I10 Essential (primary) hypertension; E11.9 Type 2 diabetes mellitus without complications; D64.9 Anemia, unspecified; E83.42 Hypomagnesemia; J01.90 Acute sinusitis, unspecified; K76.9 Liver disease, unspecified; Z79.82 Long term (current) use of aspirin
CPT/HCPCS: 36415; 70450; 71045; 74177; 74328; 76000; 76700; 80053; 80202; 81001; 81003; 82105; 82270; 82378; 82550; 82553; 82607; 82728; 82746; 82962; 83540; 83550; 83605; 83735; 84100; 84439; 84443; 84484; 85025; 85044; 85610; 85730; 86703; 86704; 86705; 86708; 86709; 86710; 86803; 87040; 87081; 87086; 87340; 87517; 87536; 93005; 93306; 94003; 94150; 94664; 97803; 99285; J1815; J2250